=== PATIENT | male | born 1935 ===

== ENCOUNTER 2016-06-01 13:22 | Inpatient (IN) | payer MEDICARE ==
--- NOTE | 2016-06-01 14:28 | ED PDOC ---
HPI: General Adult Time Seen by Provider: 06/01/16 14:13 Chief Complaint (Nursing): Abdominal Pain Chief Complaint (Provider): abdominal swelling History Per: Patient History/Exam Limitations: no limitations Additional Complaint(s): 80yo male comes to the ED complaining of abdominal bloating and leg swelling for 6-7 days. Also reports shortness of breath when laying down. States he urinates more frequently. No diarrhea, constipation. States he's had paracentesis years ago. No abdominal pain however he feels uncomfortable. No chest pain. No cough. No leg pain. PMD: Carlos Corado GI: Dr. Fair Past Medical History Reviewed: Historical Data, Nursing Documentation, Vital Signs Vital Signs: Last Vital Signs Temp 98.1 F 06/01/16 13:28 Pulse 79 06/01/16 13:28 Resp 16 06/01/16 13:28 BP 138/89 06/01/16 13:28 Pulse Ox 98 06/01/16 14:48 - Medical History PMH: CAD, Cardia Arrhythmia, Depression, Diabetes, HTN, Pneumonia Denies: Hepatitis, HIV, Chronic Kidney Disease, Seizures, Sexually Transmitted Disease Other PMH: cirrhosis - Surgical History Surgical History: Coronary Stent (2011) - Family History Family History: States: Unknown Family Hx - Living Arrangements Living Arrangements: With Family - Social History Current smoker - smoking cessation education provided: No Alcohol: None Drugs: Denies - Immunization History Hx Influenza Vaccination: No Hx Pneumococcal Vaccination: No - Home Medications Home Medications: Ambulatory Orders Medication Instructions Recorded Cholecalciferol (Vitamin D3) 1,000 units PO DAILY 01/23/16 [Children's Vitamin D3] Ferrous Sulfate [Feosol] 325 mg PO TID 01/23/16 Furosemide [Lasix] 40 mg PO DAILY 01/23/16 Hydroxyzine HCl [Hydroxyzine HCl] 10 mg PO HS PRN 01/23/16 Insulin Glargine, Recombina 10 units SQ DAILY 01/23/16 [Lantus] Isosorbide Mononitrate [Imdur] 30 mg PO DAILY 01/23/16 Melatonin [Melatin] 3 mg PO HS PRN 01/23/16 Methyl Salicylate/Menthol [Eql 1 applic TOP BID PRN 01/23/16 Cool Heat Cream] Multivit with Calcium,Iron,Min 1 tab PO DAILY 01/23/16 [Multivitamins B-Yztctct-Orbv] Omeprazole [Omeprazole] 20 mg PO DAILY 01/23/16 Propranolol [Inderal] 10 mg PO TID 01/23/16 SITagliptin [Januvia] 100 mg PO DAILY 01/23/16 Spironolactone [Aldactone] 25 mg PO BID 01/23/16 Ondansetron [Zofran Odt] 4 mg PO Q8 PRN #12 odt 02/17/16 - Allergies Allergies/Adverse Reactions: Allergies Allergy/AdvReac Type Severity Reaction Status Date / Time lisinopril Allergy RASH Verified 02/17/16 11:51 Penicillins Allergy RASH Verified 02/17/16 11:51 Review of Systems ROS Statement: Except As Marked, All Systems Reviewed And Found Negative Respiratory: Positive for: Shortness of Breath Gastrointestinal: Positive for: Other (abdominal distention). Negative for: Abdominal Pain, Diarrhea, Constipation Genitourinary Male: Positive for: Frequency Physical Exam - Reviewed Nursing Documentation Reviewed: Yes Vital Signs Reviewed: Yes - Physical Exam Appears: Positive for: Non-toxic, No Acute Distress Head Exam: Positive for: ATRAUMATIC, NORMAL INSPECTION, NORMOCEPHALIC Skin: Positive for: Normal Color, Warm, Dry Eye Exam: Positive for: EOMI, PERRL ENT: Positive for: Normal ENT Inspection. Negative for: Nasal Congestion Neck: Positive for: Normal, Painless ROM, Supple Cardiovascular/Chest: Positive for: Regular Rate, Rhythm, Chest Non Tender Respiratory: Positive for: Other (mild coarse breath sounds on right lower). Negative for: Decreased Breath Sounds, Accessory Muscle Use, Wheezing Gastrointestinal/Abdominal: Positive for: Soft, Distended. Negative for: Tenderness, Guarding, Rebound Back: Positive for: Normal Inspection. Negative for: L CVA Tenderness, R CVA Tenderness Extremity: Positive for: Normal ROM, Pedal Edema, Other (trace pitting edema bilaterally lower extremities). Negative for: Tenderness Neurologic/Psych: Positive for: Alert, Oriented - Laboratory Results Result Diagrams: 06/01/16 15:43 - ECG ECG: Positive for: Interpreted By Me, Viewed By Me ECG Rhythm: Positive for: Left Bundle Branch Block (same as old) O2 Sat by Pulse Oximetry: 98 Pulse Ox Interpretation: Normal - Progress ED Course And Treament: 1413: CT abd/pel, EKG, Labs ordered. 1633: Stable. AAOx3. Dr. Diop to take over care. Fu on labs and imaging. Disposition - Clinical Impression Clinical Impression: Ascites, Abdominal discomfort - Patient ED Disposition Is Patient to be Admitted: Transfer of Care - Disposition Disposition: Transfer of Care Disposition Time: 16:34 Condition: FAIR Patient Signed Over To: Kody Diop Additional Comments - Additional Comments Additional Comments: Documented by Willard Gtz acting as a scribe for Sapphire Verdin MD. All medical record entries made by the Scribe were at my direction and personally dictated by me. I have reviewed the chart and agree that the record accurately reflects my personal performance of the history, physical exam, medical decision making, and the department course for this patient. I have also personally directed, reviewed, and agree with the discharge instructions and disposition.
[2016-06-01] MEDS ORDERED: Iohexol 240 (50 ml) PO ONE (14:33)
[2016-06-01] MEDS ORDERED: Iohexol 240 (50 ml) ONE (14:43)
[2016-06-01 15:50] LABS: BASO % 0.2 % (0.0-2.0); EOS % 0.1 % (0.0-4.0); HEMATOCRIT 40.5 % (35.0-51.0); LYMPH # 0.6 K/uL (1.0-4.3); LYMPH % 7.2 % (20.0-40.0); MEAN CELL VOLUME 100.9 fl (80.0-94.0); MEAN CORPUSCULAR HEMOGLOBIN 33.1 pg (27.0-31.0); MEAN CORPUSCULAR HGB CONC 32.8 g/dL (33.0-37.0); MEAN PLATELET VOLUME 9.6 fl (7.2-11.7); MONO # 0.5 K/uL (0.0-0.8); MONO % 6.6 % (0.0-10.0); NEUT # 6.9 K/uL (1.8-7.0); NEUT % 85.9 % (50.0-75.0); PLATELET COUNT 128 K/uL (130-400); WHITE BLOOD COUNT 8.1 K/uL (4.8-10.8)
[2016-06-01 15:57] LABS: ALB/GLOB RATIO 0.7 (1.0-2.1); ALKALINE PHOSPHATASE 443 U/L (38-126); ALT/SGPT 91 U/L (21-72); AST/SGOT 77 U/L (17-59); BILIRUBIN,TOTAL 1.4 mg/dl (0.2-1.3); BLOOD UREA NITROGEN 41 mg/dl (9-20); CALCIUM 9.6 mg/dL (8.4-10.2); CARBON DIOXIDE 28 mmol/L (22-30); CHLORIDE 98 mmol/L (98-107); GFR AFRICAN-AMERICAN > 60; GLUCOSE,RANDOM 366 mg/dL (75-110); LIPASE 81 U/L (23-300); SODIUM 141 mmol/l (132-148); TOTAL PROTEIN 8.1 G/DL (6.3-8.2)
[2016-06-01 16:11] LABS: NEUTROPHIL 87 % (42-75); PARTIAL THROMBOPLASTIN TIME 24.8 SECONDS (23.3-32.5); TOTAL CELLS COUNTED 100
[2016-06-01 16:15] LABS: LARGE PLATELETS PRESENT
[2016-06-01 16:48] LABS: POTASSIUM 5.2 MMOL/L (3.6-5.0)
[2016-06-01] MEDS ORDERED: Sodium Chloride 0.9% 0 ML IV ONE (17:57)
[2016-06-01] MEDS ORDERED: Iohexol 300 100 ML IJ ONE (17:57)
--- NOTE | 2016-06-01 18:50 | ED PDOC ---
- Laboratory Results Result Diagrams: 06/01/16 15:43 06/01/16 15:43 - ECG O2 Sat by Pulse Oximetry: 98 Disposition - Clinical Impression Clinical Impression: Ascites, Abdominal discomfort - POA Present On Arrival: None - Disposition Disposition: Transfer of Care Disposition Time: 18:50 Condition: FAIR Patient Signed Over To: Frances Chaidez
--- NOTE | 2016-06-01 19:11 | ED PDOC ---
- Laboratory Results Result Diagrams: 06/01/16 15:43 06/01/16 15:43 - ECG O2 Sat by Pulse Oximetry: 99 - CT Scan/US CT A/P Other Rad Studies (CT/US): Read By Radiologist, Radiology Report Reviewed Other Rad Interpretation: see MDM Medical Decision Making Medical Decision Makin:00 Patient endorsed over to me by Kody Diop MD, pending CT, reevaluation and final disposition. 19:57 CT A/P report reviewed: FINDINGS: LOWER THORAX: Heart appears enlarged, and there is coronary artery calcification. No infiltrate seen in the lung bases. ABDOMEN: LIVER: Liver is again noted to be cirrhotic in appearance. Multiple abdominal collateral vessels are seen. This constellation of findings is compatible with portal hypertension due to chronic liver disease. No liver lesions visualized on this unenhanced exam. GALLBLADDER AND BILE DUCTS: Fluid is seen adjacent to the gallbladder. This is most likely related to the generalized abdominal free fluid rather than representing pericholecystic fluid secondary to acute cholecystitis. No evidence of free air.. No radioopaque gallstones are seen. PANCREAS: No CT evidence of acute pancreatitis. SPLEEN: No acute abnormality of the spleen identified. ADRENALS: No acute abnormality of the adrenal glands identified. KIDNEYS AND URETERS: Bilateral renal scarring. Low density lesion in right kidney, most likely a cyst. No evidence of hydroureteronephrosis. STOMACH AND BOWEL: Colonic diverticulosis, with no evidence of acute diverticulitis. Otherwise, no significant abnormality of the bowel is identified. No evidence of bowel obstruction. No acute abnormality of the stomach or duodenum identified. No evidence of pneumatosis intestinalis. APPENDIX: Appendix is seen, and is within normal limits in appearance. PELVIS: BLADDER: Mild thickening of the bladder wall. REPRODUCTIVE: No acute abnormality of the reproductive organs is seen. ABDOMEN and PELVIS: INTRAPERITONEAL SPACE: Large amount of abdominal and pelvic free fluid/ascites, mildly increased in amount compared to the prior CT. Infiltration of the omental fat, also seen on the prior CT. BONES/JOINTS: No acute fractures or other acute bony abnormality noted. SOFT TISSUES: No evidence of abdominal wall hernia containing bowel. VASCULATURE: Atherosclerotic calcification. No evidence of abdominal aortic aneurysm. LYMPH NODES: No evidence of diffuse lymphadenopathy. OTHER FINDINGS: Evidence of prior granulomatous infection. IMPRESSION: - Large amount of abdominal and pelvic free fluid/ascites, mildly increased in amount compared to a prior CT of 01/24/2016. - Otherwise stable findings. - Findings compatible with portal hypertension due to chronic liver disease/cirrhosis. - Mild bladder wall thickening. This is a nonspecific finding, but can be seen with cystitis. Recommend clinical correlation. - Omental fat infiltration. This finding can be seen with portal hypertension/chronic liver disease, but can also be a sign of malignancy/peritoneal metastases. Recommend clinical correlation. - See above for remaining findings. 20:36 Patient will be admitted to [facility] as a full inpatient under the service of Dr. Sadler (covering for PMD dr Nancie Davidson) for further treatment of ascites. Pending callback. Plan has been discussed with patient who is in agreement. Condition fair. 20:[address] Sadler who has accepted patient. pt aware of CT findings. Scribe Attestation: Documented by Lianet Love, acting as a scribe for Frances Chaidez MD. Provider Scribe Attestation: All medical record entries made by the Scribe were at my direction and personally dictated by me. I have reviewed the chart and agree that the record accurately reflects my personal performance of the history, physical exam, medical decision making, and the department course for this patient. I have also personally directed, reviewed, and agree with the discharge instructions and disposition. Disposition Counseled Patient/Family Regarding: Studies Performed, Diagnosis - Clinical Impression Clinical Impression: Ascites, Abdominal discomfort - POA Present On Arrival: None - Disposition Disposition: Admitted as In-Patient Disposition Time: 20:00 Condition: FAIR
--- NOTE | 2016-06-01 19:58 | CT ---
EXAM: CT Abdomen and Pelvis Without Intravenous Contrast. CLINICAL HISTORY: 80 years old, male; Signs and symptoms; Bloating; Patient HX: Ascites; Additional info: Ascites. Abd and feet swelling both feet TECHNIQUE: Axial computed tomography images of the abdomen and pelvis without intravenous contrast. This CT exam was performed using one or more of the following dose reduction techniques: automated exposure control, adjustment of the mA and/or kV according to patient size, and/or use of iterative reconstruction technique. Coronal and sagittal reformatted images were created and reviewed. EXAM DATE/TIME: 06/01/2016 6:09 PM COMPARISON: Prior CT abdomen and pelvis of 01/24/2016 FINDINGS: LOWER THORAX: Heart appears enlarged, and there is coronary artery calcification. No infiltrate seen in the lung bases. ABDOMEN: LIVER: Liver is again noted to be cirrhotic in appearance. Multiple abdominal collateral vessels are seen. This constellation of findings is compatible with portal hypertension due to chronic liver disease. No liver lesions visualized on this unenhanced exam. GALLBLADDER AND BILE DUCTS: Fluid is seen adjacent to the gallbladder. This is most likely related to the generalized abdominal free fluid rather than representing pericholecystic fluid secondary to acute cholecystitis. No evidence of free air.. No radioopaque gallstones are seen. PANCREAS: No CT evidence of acute pancreatitis. SPLEEN: No acute abnormality of the spleen identified. ADRENALS: No acute abnormality of the adrenal glands identified. KIDNEYS AND URETERS: Bilateral renal scarring. Low density lesion in right kidney, most likely a cyst. No evidence of hydroureteronephrosis. STOMACH AND BOWEL: Colonic diverticulosis, with no evidence of acute diverticulitis. Otherwise, no significant abnormality of the bowel is identified. No evidence of bowel obstruction. No acute abnormality of the stomach or duodenum identified. No evidence of pneumatosis intestinalis. APPENDIX: Appendix is seen, and is within normal limits in appearance. PELVIS: BLADDER: Mild thickening of the bladder wall. REPRODUCTIVE: No acute abnormality of the reproductive organs is seen. ABDOMEN and PELVIS: INTRAPERITONEAL SPACE: Large amount of abdominal and pelvic free fluid/ascites, mildly increased in amount compared to the prior CT. Infiltration of the omental fat, also seen on the prior CT. BONES/JOINTS: No acute fractures or other acute bony abnormality noted. SOFT TISSUES: No evidence of abdominal wall hernia containing bowel. VASCULATURE: Atherosclerotic calcification. No evidence of abdominal aortic aneurysm. LYMPH NODES: No evidence of diffuse lymphadenopathy. OTHER FINDINGS: Evidence of prior granulomatous infection. IMPRESSION: - Large amount of abdominal and pelvic free fluid/ascites, mildly increased in amount compared to a prior CT of 01/24/2016. - Otherwise stable findings. - Findings compatible with portal hypertension due to chronic liver disease/cirrhosis. - Mild bladder wall thickening. This is a nonspecific finding, but can be seen with cystitis. Recommend clinical correlation. - Omental fat infiltration. This finding can be seen with portal hypertension/chronic liver disease, but can also be a sign of malignancy/peritoneal metastases. Recommend clinical correlation. - See above for remaining findings.
[2016-06-02] MEDS: Insulin Regular 100 units/ml SC SCH ×4 (07:06→23:41)
[2016-06-02] MEDS ORDERED: MULTIVIT WITH CALCIUM IRON MIN PO SCH (09:00)
[2016-06-02] MEDS: Pantoprazole 40 mg EC Tab PO SCH (09:08)
[2016-06-02] MEDS: Multivitamin With Minerals Tab PO SCH (09:08)
--- NOTE | 2016-06-02 12:53 | CP.PCM.HP ---
<Louisa Muñoz - Last Filed: 06/02/16 16:22> History of Present Illness - History of Present Illness History of Present Illness: Pt is a 80y/o male with medical history of HTN, type II diabetes and CAD and most likely cirrhosis who presented to the ED complaining of abdominal bloating and leg swelling for 6-7 days. Also reports shortness of breath when laying down. States he urinates more frequently. No diarrhea, constipation. States he' s had paracentesis years ago. No abdominal pain however he feels uncomfortable. No chest pain. No cough. No leg pain. Pt seen and examined at this morning at bedside, breathing is a little better but not resolved and still feel discomfort. denies chest pain, nausea, vomiting, headache or visual changes PMD: Carlos Corado GI: Dr. Fair Present on Admission - Present on Admission Any Indicators Present on Admission: Yes History of Uncontrolled Diabetes: Yes Review of Systems - Review of Systems All systems: reviewed and no additional remarkable complaints except Review of Systems: per HPI Past Patient History - Infectious Disease Hx of Infectious Diseases: None - Past Medical History & Family History Past Medical History?: Yes - Past Social History Smoking Status: Never Smoked - CARDIAC Hx Cardiac Disorders: Yes Hx Hypertension: Yes - PULMONARY Hx Respiratory Disorders: Yes Hx Pneumonia: Yes - NEUROLOGICAL Hx Neurological Disorder: No Hx Seizures: No - HEENT Hx HEENT Problems: Yes Other/Comment: Difficulty hearing- wears b/l hearing aids not in place during this admission - RENAL Hx Chronic Kidney Disease: No - ENDOCRINE/METABOLIC Hx Endocrine Disorders: Yes Hx Diabetes Mellitus Type 2: Yes - HEMATOLOGICAL/ONCOLOGICAL Hx Blood Disorders: No Hx Human Immunodeficiency Virus (HIV): No - INTEGUMENTARY Hx Dermatological Problems: No - MUSCULOSKELETAL/RHEUMATOLOGICAL Hx Musculoskeletal Disorders: Yes Hx Arthritis: Yes Hx Falls: Yes - GASTROINTESTINAL Hx Gastrointestinal Disorders: Yes Other/Comment: Liver cirrhosis - GENITOURINARY/GYNECOLOGICAL Hx Genitourinary Disorders: No Hx Sexually Transmitted Disorders: No - PSYCHIATRIC Hx Psychophysiologic Disorder: Yes Hx Depression: Yes Hx Substance Use: No - SURGICAL HISTORY Hx Surgeries: Yes Hx Coronary Stent: Yes (2011) - ANESTHESIA Hx Anesthesia: Yes Hx Anesthesia Reactions: No Hx Malignant Hyperthermia: No Has any member of the family had a problem w/ anesthesia?: No Meds Allergies/Adverse Reactions: Allergies Allergy/AdvReac Type Severity Reaction Status Date / Time lisinopril Allergy RASH Verified 02/17/16 11:51 Penicillins Allergy RASH Verified 02/17/16 11:51 Physical Exam - Constitutional Appears: Non-toxic, No Acute Distress - Head Exam Head Exam: NORMOCEPHALIC - Eye Exam Eye Exam: Normal appearance - ENT Exam ENT Exam: Mucous Membranes Moist - Respiratory Exam Respiratory Exam: Clear to Auscultation Bilateral, NORMAL BREATHING PATTERN. absent: Rhonchi, Wheezes - Cardiovascular Exam Cardiovascular Exam: REGULAR RHYTHM, +S1, +S2 - GI/Abdominal Exam GI & Abdominal Exam: Distended, Normal Bowel Sounds, Soft Additional comments: abdomen is very distended with lot of fluid - Extremities Exam Extremities exam: Negative for: calf tenderness, pedal edema - Neurological Exam Neurological exam: Alert, Oriented x3 Results - Vital Signs Recent Vital Signs: Last Vital Signs Temp 97.8 F 06/02/16 08:16 Pulse 74 06/02/16 08:16 Resp 20 06/02/16 08:16 BP 116/76 06/02/16 09:08 Pulse Ox 98 06/02/16 08:16 - Labs Result Diagrams: 06/01/16 15:43 06/01/16 15:43 Labs: Laboratory Results - last 24 hr 06/02/16 06/02/16 06/02/16 05:45 07:15 11:04 POC Glucose (mg/dL) 140 H 186 H Ammonia 22 D Assessment & Plan - Assessment and Plan (Free Text) Assessment: 80 y/o make with history of HTN, Type II insulin dependent diabetic admitted for sob due to ascites and portal hypertension Plan: Ascites and portal hypertension pt on furosemide, Spironolactone and Metolazone Hepatitis panel ordered CT of abdomen reviewed GI consulted- awaiting recommendation Insulin dependent Type II diabetes SSI home meds resumed Accu check HTN home meds diet- Gi diet DVT prophylaxis- Lovenox <Lars Sadler - Last Filed: 08/16/16 11:02> Results - Vital Signs Recent Vital Signs: Last Vital Signs Temp 98.5 F 06/04/16 08:15 Pulse 85 06/04/16 11:13 Resp 20 06/04/16 08:15 BP 110/70 06/04/16 13:35 Pulse Ox 98 06/04/16 11:13 - Labs Result Diagrams: 06/03/16 15:15 06/03/16 15:15 Assessment & Plan - Assessment and Plan (Free Text) Plan: I was present during evaluation and discussed with Dr Toni asher plans of care and mgt. Lars Sadler M.D.
[2016-06-02] MEDS ORDERED: Dextrose 50% SYRINGE Inj (50 ml) IV PRN (16:29)
[2016-06-02] MEDS ORDERED: Glucagon Recombinant 1 mg Inj IM PRN (16:29)
--- NOTE | 2016-06-03 06:08 | CARD ---
APPROVED REPORT EKG Measurement Heart [id number] ID [id number] <Conclusion> Sinus rhythm with marked sinus arrhythmia Left axis deviation Left bundle branch block Abnormal ECG
[2016-06-03] MEDS: Insulin Regular 100 units/ml SC SCH ×4 (07:30→22:00)
[2016-06-03] MEDS ORDERED: Pantoprazole 40 mg EC Tab PO SCH (09:00)
[2016-06-03] MEDS: Pantoprazole 40 mg EC Tab PO SCH (10:32)
[2016-06-03] MEDS: Multivitamin With Minerals Tab PO SCH (10:33)
[2016-06-03] MEDS: metOLazone 2.5 MG TAB PO SCH (10:34)
[2016-06-03] MEDS ORDERED: Lidocaine 1% Inj (20ml) ONE (11:53)
--- NOTE | 2016-06-03 12:49 | CP.PCM.CON ---
History of Present Illness - History of Present Illness History of Present Illness: GI Consult: Dr. Ruby Pt is an 80M with PMHx significant for DM, HTN & CAD who presented to [facility] for complaints of abdominal bloating and swelling in his legs. Pt states his symptoms started about a week ago and he started to feel more and more uncomfortable with subsequent shortness of breath and urinary frequency. Pt states SOB is worse when he's laying down flat. Pt does admit to having fluid drained from his abdomen about a year ago. He states his abdomen feels uncomfortable but denies abdominal pain. Denies N/V, F/C. Denies chest pain or cough. PMHx: as stated above PSHx: coronary stent SocialHx denies smoking, EtOH, drugs Review of Systems - Review of Systems All systems: reviewed and no additional remarkable complaints except (as per HPI ) Past Patient History - Infectious Disease Hx of Infectious Diseases: None - Past Medical History & Family History Past Medical History?: Yes - Past Social History Smoking Status: Never Smoked - CARDIAC Hx Cardiac Disorders: Yes Hx Hypertension: Yes - PULMONARY Hx Respiratory Disorders: Yes Hx Pneumonia: Yes - NEUROLOGICAL Hx Neurological Disorder: No Hx Seizures: No - HEENT Hx HEENT Problems: Yes Other/Comment: Difficulty hearing - RENAL Hx Chronic Kidney Disease: No - ENDOCRINE/METABOLIC Hx Endocrine Disorders: Yes Hx Diabetes Mellitus Type 2: Yes - HEMATOLOGICAL/ONCOLOGICAL Hx Blood Disorders: No Hx Human Immunodeficiency Virus (HIV): No - INTEGUMENTARY Hx Dermatological Problems: No - MUSCULOSKELETAL/RHEUMATOLOGICAL Hx Musculoskeletal Disorders: Yes Hx Arthritis: Yes Hx Falls: Yes - GASTROINTESTINAL Hx Gastrointestinal Disorders: Yes Other/Comment: Liver cirrhosis - GENITOURINARY/GYNECOLOGICAL Hx Genitourinary Disorders: No Hx Sexually Transmitted Disorders: No - PSYCHIATRIC Hx Psychophysiologic Disorder: Yes Hx Depression: Yes Hx Substance Use: No - SURGICAL HISTORY Hx Surgeries: Yes Hx Coronary Stent: Yes (2011) - ANESTHESIA Hx Anesthesia: Yes Hx Anesthesia Reactions: No Hx Malignant Hyperthermia: No Has any member of the family had a problem w/ anesthesia?: No Meds Allergies/Adverse Reactions: Allergies Allergy/AdvReac Type Severity Reaction Status Date / Time lisinopril Allergy RASH Verified 02/17/16 11:51 Penicillins Allergy RASH Verified 02/17/16 11:51 - Medications Medications: Current Medications Dextrose (Dextrose 50% Inj) 0 ml IV STAT PRN; Protocol PRN Reason: Hyglycemia Protocol Dextrose (Glutose 15) 0 gm PO ONCE PRN; Protocol PRN Reason: Hypoglycemia Protocol Furosemide (Lasix) 40 mg PO DAILY [facility] Last Admin: 06/03/16 10:34 Dose: 40 mg Glucagon (Glucagen Diagnostic Kit) 0 mg IM STAT PRN; Protocol PRN Reason: Hypoglycemia Protocol Insulin Detemir (Levemir) 10 units SC DAILY [facility] Insulin Human Regular (Humulin R) 0 units SC ACCU-CHECK MYA PRN Reason: Protocol Last Admin: 06/03/16 07:30 Dose: Not Given Isosorbide Mononitrate (Imdur) 30 mg PO DAILY [facility] Last Admin: 06/03/16 10:34 Dose: 30 mg Metolazone (Zaroxolyn) 2.5 mg PO DAILY [facility] Last Admin: 06/03/16 10:34 Dose: 2.5 mg Multivitamins/Minerals (Therapeutic-M Tab) 1 tab PO DAILY [facility] Last Admin: 06/03/16 10:33 Dose: 1 tab Ondansetron HCl (Zofran Tab) 4 mg PO Q8 PRN PRN Reason: Nausea/Vomiting Pantoprazole Sodium (Protonix Ec Tab) 40 mg PO DAILY [facility] Last Admin: 06/03/16 10:32 Dose: 40 mg Propranolol HCl (Inderal) 10 mg PO TID [facility] Last Admin: 06/03/16 10:32 Dose: 10 mg Sitagliptin Phosphate (Januvia) 100 mg PO DAILY [facility] Last Admin: 06/03/16 10:33 Dose: 100 mg Spironolactone (Aldactone) 50 mg PO DAILY [facility] Last Admin: 06/03/16 10:34 Dose: 50 mg Physical Exam - Constitutional Appears: Well, No Acute Distress - Head Exam Head Exam: ATRAUMATIC, NORMOCEPHALIC - ENT Exam ENT Exam: Mucous Membranes Moist - Respiratory Exam Respiratory Exam: NORMAL BREATHING PATTERN - Cardiovascular Exam Cardiovascular Exam: RRR - GI/Abdominal Exam GI & Abdominal Exam: Distended, Soft. absent: Guarding, Tenderness - Extremities Exam Extremities exam: Positive for: pedal edema. Negative for: tenderness - Neurological Exam Neurological exam: Alert, Oriented x3 - Skin Skin Exam: Dry, Warm Results - Vital Signs Recent Vital Signs: Last Vital Signs Temp 97.4 F L 06/03/16 12:08 Pulse 74 06/03/16 12:08 Resp 18 06/03/16 12:08 BP 144/77 06/03/16 12:08 Pulse Ox 96 06/03/16 12:08 - Labs Result Diagrams: 06/01/16 15:43 06/01/16 15:43 Labs: Laboratory Results - last 24 hr 06/02/16 06/02/16 06/02/16 12:10 16:31 21:35 POC Glucose (mg/dL) 109 196 H Hepatitis A IgM Ab Negative Hep Bs Antigen Negative Hep B Core IgM Ab Negative Hepatitis C Antibody Negative 06/03/16 06/03/16 06:39 11:01 POC Glucose (mg/dL) 121 H 258 H Hepatitis A IgM Ab Hep Bs Antigen Hep B Core IgM Ab Hepatitis C Antibody - Imaging and Cardiology CT scan - abdomen Status: Image reviewed by me, Report reviewed by me Assessment & Plan - Assessment and Plan (Free Text) Assessment: 80M with ascites Plan: - unclear what the etiology of ascites is at this time, might be related to CHF vs cirrhosis - recommend diuretic treatment first - will continue to monitor - d/w Dr. Flori Child, PGY-2
[2016-06-03 12:51] LABS: BODY FLUID TYPE PERITONEAL/ASCITES
[2016-06-03] MEDS ORDERED: Albumin Human 25% (12.5 gm/50 ml) IV ONE ×2 (12:59→13:00)
--- NOTE | 2016-06-03 13:02 | PCM.SURG1 ---
Surgeon's Initial Post Op Note - Surgeon's Notes Surgeon: Ed Mathematics Instructor: None Type of Anesthesia: Local Pre-Operative Diagnosis: Ascites. Operative Findings: Ascites. Post-Operative Diagnosis: Ascites. Operation Performed: Paracentesis Specimen/Specimens Removed: Approx 9.6L of cloudy plae yellow fluid aspirated. Estimated Blood Loss: EBL {In ML}: 1 Date of Surgery/Procedure: 06/03/16 Time of Surgery/Procedure: 13:00
--- NOTE | 2016-06-03 13:10 | CP.PCM.PN ---
<ToniLouisa - Last Filed: 06/03/16 13:10> Subjective - Date & Time of Evaluation Date of Evaluation: 06/03/16 Time of Evaluation: 09:10 - Subjective Subjective: pt seen and examined at bedside this morning, does not have any complaints. would like to go home. states he feels just a little discomfort. no chest pain, visual change, nausea or vomiting Objective - Vital Signs/Intake and Output Vital Signs (last 24 hours): Temp Pulse Resp BP Pulse Ox 97.4 F L 74 18 144/77 96 06/03/16 12:08 06/03/16 12:08 06/03/16 12:08 06/03/16 12:08 06/03/16 12:08 - Medications Medications: Current Medications Dextrose (Dextrose 50% Inj) 0 ml IV STAT PRN; Protocol PRN Reason: Hyglycemia Protocol Dextrose (Glutose 15) 0 gm PO ONCE PRN; Protocol PRN Reason: Hypoglycemia Protocol Furosemide (Lasix) 40 mg PO DAILY [facility] Last Admin: 06/03/16 10:34 Dose: 40 mg Glucagon (Glucagen Diagnostic Kit) 0 mg IM STAT PRN; Protocol PRN Reason: Hypoglycemia Protocol Insulin Detemir (Levemir) 10 units SC DAILY [facility] Insulin Human Regular (Humulin R) 0 units SC ACCU-CHECK [facility] PRN Reason: Protocol Last Admin: 06/03/16 07:30 Dose: Not Given Isosorbide Mononitrate (Imdur) 30 mg PO DAILY [facility] Last Admin: 06/03/16 10:34 Dose: 30 mg Metolazone (Zaroxolyn) 2.5 mg PO DAILY [facility] Last Admin: 06/03/16 10:34 Dose: 2.5 mg Multivitamins/Minerals (Therapeutic-M Tab) 1 tab PO DAILY [facility] Last Admin: 06/03/16 10:33 Dose: 1 tab Ondansetron HCl (Zofran Tab) 4 mg PO Q8 PRN PRN Reason: Nausea/Vomiting Pantoprazole Sodium (Protonix Ec Tab) 40 mg PO DAILY [facility] Last Admin: 06/03/16 10:32 Dose: 40 mg Propranolol HCl (Inderal) 10 mg PO TID [facility] Last Admin: 06/03/16 10:32 Dose: 10 mg Sitagliptin Phosphate (Januvia) 100 mg PO DAILY [facility] Last Admin: 06/03/16 10:33 Dose: 100 mg Spironolactone (Aldactone) 50 mg PO DAILY [facility] Last Admin: 06/03/16 10:34 Dose: 50 mg - Labs Labs: PT 12.8 SECONDS (9.6-11.2) H 06/01/16 15:43 INR 1.23 (0.92-1.08) H 06/01/16 15:43 APTT 24.8 SECONDS (23.3-32.5) 06/01/16 15:43 - Constitutional Appears: Non-toxic, No Acute Distress - Head Exam Head Exam: NORMOCEPHALIC - ENT Exam ENT Exam: Mucous Membranes Moist - Respiratory Exam Respiratory Exam: Clear to Ausculation Bilateral, NORMAL BREATHING PATTERN. absent: Wheezes - Cardiovascular Exam Cardiovascular Exam: REGULAR RHYTHM, +S1, +S2 - GI/Abdominal Exam GI & Abdominal Exam: Distended, Soft, Normal Bowel Sounds - Extremities Exam Extremities Exam: absent: Calf Tenderness, Pedal Edema - Neurological Exam Neurological Exam: Alert, Awake, Oriented x3 Assessment and Plan - Assessment and Plan (Free Text) Assessment: 80 y/o make with history of HTN, Type II insulin dependent diabetic admitted for sob due to ascites and portal hypertension Plan: Ascites and portal hypertension pt on furosemide, Spironolactone and Metolazone For paracentesis today to help alleviate discomfort Hepatitis panel ordered GI consulted- awaiting recommendation Insulin dependent Type II diabetes SSI home meds resumed Accu check HTN home meds diet- Gi diet DVT prophylaxis- Lovenox <Lars Sadler - Last Filed: 08/16/16 11:04> Objective - Vital Signs/Intake and Output Vital Signs (last 24 hours): Temp Pulse Resp BP Pulse Ox 98.5 F 85 20 110/70 98 06/04/16 08:15 06/04/16 11:13 06/04/16 08:15 06/04/16 13:35 06/04/16 11:13 - Labs Labs: 06/03/16 15:15 06/03/16 15:15 PT 12.8 SECONDS (9.6-11.2) H 06/01/16 15:43 INR 1.23 (0.92-1.08) H 06/01/16 15:43 APTT 24.8 SECONDS (23.3-32.5) 06/01/16 15:43 Assessment and Plan - Assessment and Plan (Free Text) Plan: I was present during evaluation and discussed with Dr Toni asher plans of care and mgt. Lars Sadler M.D.
[2016-06-03 13:23] LABS: LDH,BODY FLUID 257 IU (NONE ESTABLISHED)
[2016-06-03] MEDS: Insulin Detemir 100 Units/ml Inj SC SCH (13:42)
--- NOTE | 2016-06-03 14:24 | PQF GENQUE ---
Dr. Sadler, Please specify the ,status, of diabetes: i.e. With hyperglycemia (poorly controlled, out of control, etc.) Other (please specify) Unable to determine Unknown random serum glucose: 366; POC:354->140->186->109->186->109->196->121->258; insulin This form is a permanent part of the medical record Clarification of your documentation is requested to better reflect the severity of illness and intensity of treatment of your patient. Indicators present [] Specify: [] [] Specify: [] [] Specify: [] [] Specify: [] Location in the medical record that reflects the above clinical findings: [] Treatment Provided: [] PHYSICIAN'S RESPONSE Based on your medical judgment of the clinical indicators outlined above please clarify the following: [] Practitioner response [] If unable to determine, please check the box, sign and date. Present On Admission (POA) Indicator: [] Present at the time of admission [] Not present at the time of admission [] Clinically Undetermined In responding to this query, please exercise your independent professional judgment. The fact that a question is asked does not imply that any particular answer is desired or expected. Thank you for your clarification on this documentation. If you have any questions please call. * Thank you, Kay Harrington RN BSN ext. #[phone] MTDD
[2016-06-03 15:08] LABS: BF GROSS APPEARANCE CLOUDY (CLEAR)
--- NOTE | 2016-06-03 15:27 | PQF GENQUE ---
Dr. Sadler, Etiology of Ascites if known after the work up is completed? -Resident working with the attending: note: Ascites and portal hypertension pt on furosemide, Spironolactone and Metolazone For paracentesis today to help alleviate discomfort Hepatitis panel ordered GI consulted- awaiting recommendation -Surgical consult: - unclear what the etiology of ascites is at this time, might be related to CHF vs cirrhosis - recommend diuretic treatment first - will continue to monitor - d/w GI -CT Abdomen/Pelvis:Imp: - Large amount of abdominal and pelvic free fluid/ ascites, mildly increased in amount compared to a prior CT of 01/24/2016. - Otherwise stable findings. - Findings compatible with portal hypertension due to chronic liver disease/ cirrhosis. - Mild bladder wall thickening. This is a nonspecific finding, but can be seen with cystitis. Recommend clinical correlation. - Omental fat infiltration. This finding can be seen with portal hypertension/chronic liver disease, but can also be a sign of malignancy/peritoneal metastases. Recommend clinical correlation - This form is a permanent part of the medical record Clarification of your documentation is requested to better reflect the severity of illness and intensity of treatment of your patient. Indicators present [] Specify: [] [] Specify: [] [] Specify: [] [] Specify: [] Location in the medical record that reflects the above clinical findings: [] Treatment Provided: [] PHYSICIAN'S RESPONSE Based on your medical judgment of the clinical indicators outlined above please clarify the following: [] Practitioner response [] If unable to determine, please check the box, sign and date. Present On Admission (POA) Indicator: [] Present at the time of admission [] Not present at the time of admission [] Clinically Undetermined In responding to this query, please exercise your independent professional judgment. The fact that a question is asked does not imply that any particular answer is desired or expected. Thank you for your clarification on this documentation. If you have any questions please call. * Thank you, Kay Harrington RN BSN ext. #[phone] MTDD
[2016-06-03 15:35] LABS: HEMATOCRIT 43.3 % (35.0-51.0); MEAN CELL VOLUME 99.6 fl (80.0-94.0); MEAN CORPUSCULAR HEMOGLOBIN 33.1 pg (27.0-31.0); MEAN CORPUSCULAR HGB CONC 33.3 g/dL (33.0-37.0); RED CELL DISTRIBUTION WIDTH 14.5 % (11.5-14.5); WHITE BLOOD COUNT 5.9 K/uL (4.8-10.8)
[2016-06-03 15:41] LABS: ALB/GLOB RATIO 0.7 (1.0-2.1); ALKALINE PHOSPHATASE 376 U/L (38-126); ALT/SGPT 77 U/L (21-72); AST/SGOT 72 U/L (17-59); BILIRUBIN,TOTAL 1.8 mg/dl (0.2-1.3); BLOOD UREA NITROGEN 38 mg/dl (9-20); CALCIUM 9.6 mg/dL (8.4-10.2); CARBON DIOXIDE 31 mmol/L (22-30); CHLORIDE 97 mmol/L (98-107); GFR AFRICAN-AMERICAN > 60; GLUCOSE,RANDOM 269 mg/dL (75-110); POTASSIUM 4.7 MMOL/L (3.6-5.0); SODIUM 142 mmol/l (132-148); TOTAL PROTEIN 7.5 G/DL (6.3-8.2)
--- NOTE | 2016-06-03 18:29 | CP.PCM.PN ---
Subjective - Date & Time of Evaluation Date of Evaluation: 06/03/16 Time of Evaluation: 18:30 - Subjective Subjective: s/p paracentesis Objective - Vital Signs/Intake and Output Vital Signs (last 24 hours): Temp Pulse Resp BP Pulse Ox 97.9 F 72 20 114/65 97 06/03/16 16:48 06/03/16 16:48 06/03/16 16:48 06/03/16 16:48 06/03/16 16:48 - Medications Medications: Current Medications Dextrose (Dextrose 50% Inj) 0 ml IV STAT PRN; Protocol PRN Reason: Hyglycemia Protocol Dextrose (Glutose 15) 0 gm PO ONCE PRN; Protocol PRN Reason: Hypoglycemia Protocol Furosemide (Lasix) 40 mg PO DAILY [facility] Last Admin: 06/03/16 10:34 Dose: 40 mg Glucagon (Glucagen Diagnostic Kit) 0 mg IM STAT PRN; Protocol PRN Reason: Hypoglycemia Protocol Levofloxacin/Dextrose (Levaquin 250mg) 50 mls @ 50 mls/hr IVPB DAILY@1400 [facility] Insulin Detemir (Levemir) 10 units SC DAILY [facility] Last Admin: 06/03/16 13:42 Dose: 10 units Insulin Human Regular (Humulin R) 0 units SC ACCU-CHECK MYA PRN Reason: Protocol Last Admin: 06/03/16 17:29 Dose: 6 units Isosorbide Mononitrate (Imdur) 30 mg PO DAILY [facility] Last Admin: 06/03/16 10:34 Dose: 30 mg Metolazone (Zaroxolyn) 2.5 mg PO DAILY [facility] Last Admin: 06/03/16 10:34 Dose: 2.5 mg Multivitamins/Minerals (Therapeutic-M Tab) 1 tab PO DAILY [facility] Last Admin: 06/03/16 10:33 Dose: 1 tab Ondansetron HCl (Zofran Tab) 4 mg PO Q8 PRN PRN Reason: Nausea/Vomiting Pantoprazole Sodium (Protonix Ec Tab) 40 mg PO DAILY [facility] Last Admin: 06/03/16 10:32 Dose: 40 mg Propranolol HCl (Inderal) 10 mg PO TID [facility] Last Admin: 06/03/16 17:23 Dose: 10 mg Sitagliptin Phosphate (Januvia) 100 mg PO DAILY [facility] Last Admin: 06/03/16 10:33 Dose: 100 mg Spironolactone (Aldactone) 50 mg PO DAILY [facility] Last Admin: 06/03/16 10:34 Dose: 50 mg - Labs Labs: 06/03/16 15:15 06/03/16 15:15 PT 12.8 SECONDS (9.6-11.2) H 06/01/16 15:43 INR 1.23 (0.92-1.08) H 06/01/16 15:43 APTT 24.8 SECONDS (23.3-32.5) 06/01/16 15:43 - GI/Abdominal Exam GI & Abdominal Exam: Soft, Normal Bowel Sounds Assessment and Plan - Assessment and Plan (Free Text) Assessment: 80 yo male with ascites s/p paracentesis management of oral diuretics dc planning
[2016-06-04] MEDS: Insulin Regular 100 units/ml SC SCH ×2 (06:57→11:37)
[2016-06-04 08:16] VITALS: RESP 20; TEMP 98.5; O2SAT 98
[2016-06-04] MEDS: Multivitamin With Minerals Tab PO SCH (08:57)
[2016-06-04] MEDS: Pantoprazole 40 mg EC Tab PO SCH (08:57)
[2016-06-04] MEDS: Insulin Detemir 100 Units/ml Inj SC SCH (08:58)
[2016-06-04] MEDS: metOLazone 2.5 MG TAB PO SCH (09:00)
[2016-06-04 11:30] VITALS: PULSE 85
[2016-06-04 13:35] VITALS: BP 110/70
--- NOTE | 2016-06-04 13:37 | CP.PCM.DIS ---
<ToniRashada - Last Filed: 06/04/16 13:33> Provider - Provider Date of Admission: 06/01/16 20:53 Attending physician: Lars Sadler MD Time Spent in preparation of Discharge (in minutes): 30 Diagnosis - Discharge Diagnosis (1) Ascites of liver Status: c Hospital Course - Lab Results Lab Results: Micro Results 06/03/16 13:02 Ascitic Fluid Gram Stain - Final 06/03/16 13:02 Ascitic Fluid Body Fluid Culture - Preliminary NO GROWTH AFTER 24 HOURS Most Recent Lab Values WBC 5.9 K/uL (4.8-10.8) 06/03/16 15:15 RBC 4.35 Mil/uL (4.40-5.90) L 06/03/16 15:15 Hgb 14.4 g/dL (12.0-18.0) 06/03/16 15:15 Hct 43.3 % (35.0-51.0) 06/03/16 15:15 MCV 99.6 fl (80.0-94.0) H 06/03/16 15:15 MCH 33.1 pg (27.0-31.0) H 06/03/16 15:15 MCHC 33.3 g/dL (33.0-37.0) 06/03/16 15:15 RDW 14.5 % (11.5-14.5) 06/03/16 15:15 Plt Count 127 K/uL (130-400) L 06/03/16 15:15 MPV 9.6 fl (7.2-11.7) 06/01/16 15:43 Neut % (Auto) 85.9 % (50.0-75.0) H 06/01/16 15:43 Lymph % (Auto) 7.2 % (20.0-40.0) L 06/01/16 15:43 [place] % (Auto) 6.6 % (0.0-10.0) 06/01/16 15:43 Eos % (Auto) 0.1 % (0.0-4.0) 06/01/16 15:43 Baso % (Auto) 0.2 % (0.0-2.0) 06/01/16 15:43 Neut # 6.9 K/uL (1.8-7.0) 06/01/16 15:43 Lymph # 0.6 K/uL (1.0-4.3) L 06/01/16 15:43 [place] # 0.5 K/uL (0.0-0.8) 06/01/16 15:43 Eos # 0.0 K/uL (0.0-0.7) 06/01/16 15:43 Baso # 0.0 K/uL (0.0-0.2) 06/01/16 15:43 Neutrophils % (Manual) 87 % (42-75) H 06/01/16 15:43 Lymphocytes % (Manual) 6 % (20-50) L 06/01/16 15:43 Monocytes % (Manual) 7 % (0-10) 06/01/16 15:43 Platelet Estimate Slightly decreased (NORMAL) L 06/01/16 15:43 Large Platelets Present 06/01/16 15:43 Anisocytosis (manual) Slight 06/01/16 15:43 Macrocytosis (manual) Slight 06/01/16 15:43 PT 12.8 SECONDS (9.6-11.2) H 06/01/16 15:43 INR 1.23 (0.92-1.08) H 06/01/16 15:43 APTT 24.8 SECONDS (23.3-32.5) 06/01/16 15:43 Sodium 142 mmol/l (132-148) 06/03/16 15:15 Potassium 4.7 MMOL/L (3.6-5.0) 06/03/16 15:15 Chloride 97 mmol/L (98-107) L 06/03/16 15:15 Carbon Dioxide 31 mmol/L (22-30) H 06/03/16 15:15 Anion Gap 19 (10-20) 06/03/16 15:15 BUN 38 mg/dl (9-20) H 06/03/16 15:15 Creatinine 1.3 mg/dL (0.8-1.5) 06/03/16 15:15 Est GFR ( Amer) > 60 06/03/16 15:15 Est GFR (Non-Af Amer) 53 06/03/16 15:15 POC Glucose (mg/dL) 273 mg/dL (65-110) H 06/04/16 11:02 Random Glucose 269 mg/dL (75-110) H 06/03/16 15:15 Calcium 9.6 mg/dL (8.4-10.2) 06/03/16 15:15 Total Bilirubin 1.8 mg/dl (0.2-1.3) H 06/03/16 15:15 AST 72 U/L (17-59) H 06/03/16 15:15 ALT 77 U/L (21-72) H 06/03/16 15:15 Alkaline Phosphatase 376 U/L (38-126) H 06/03/16 15:15 Ammonia 22 umo/L (16-60) D 06/02/16 07:15 Lactate Dehydrogenase 509 U/L (313-618) 06/03/16 15:15 Troponin I 0.0940 ng/mL (0.00-0.120) 06/01/16 15:43 NT-Pro-B Natriuret Pep 1870 pg/ml (0-900) H 06/01/16 15:43 Total Protein 7.5 G/DL (6.3-8.2) 06/03/16 15:15 Albumin 3.2 g/dL (3.5-5.0) L 06/03/16 15:15 Globulin 4.3 gm/dL (2.2-3.9) H 06/03/16 15:15 Albumin/Globulin Ratio 0.7 (1.0-2.1) L 06/03/16 15:15 Lipase 81 U/L (23-300) 06/01/16 15:43 Fluid Source Peritoneal/ascites 06/03/16 12:15 Fluid Appearance Cloudy (CLEAR) 06/03/16 12:15 Fluid WBC 46.0 /mm3 (0.0-300.0) 06/03/16 12:15 Fluid RBC 18.0 /mm3 (0.0-0.0) H 06/03/16 12:15 Fluid Tot Cell Count TEST NOT PERFORMED 06/03/16 12:15 Fluid Neutrophils 10.0 % (0-0) H 06/03/16 12:15 Fluid Lymphocytes 35.0 % (0-0) H 06/03/16 12:15 Fld Monocyte/Macrophag 5 % (0-0) H 06/03/16 12:15 Fluid Glucose 170 mg/dL (NONE ESTABLISHED) 06/03/16 12:15 Fluid LDH 257 IU (NONE ESTABLISHED) 06/03/16 12:15 Fluid Comment Pale yellow 06/03/16 12:15 Hepatitis A IgM Ab Negative (NEGATIVE) 06/02/16 12:10 Hep Bs Antigen Negative (NEGATIVE) 06/02/16 12:10 Hep B Core IgM Ab Negative (NEGATIVE) 06/02/16 12:10 Hepatitis C Antibody Negative (NEGATIVE) 06/02/16 12:10 - Hospital Course Hospital Course: Pt was admitted for ascites that was causing discomfort, had a paracentesis which relieved the discomfort and is now being discharged home. remained comfortable throughout stay Discharge Exam - Head Exam Head Exam: ATRAUMATIC, NORMOCEPHALIC - Eye Exam Eye Exam: Normal appearance - Respiratory Exam Respiratory Exam: NORMAL BREATHING PATTERN - Cardiovascular Exam Cardiovascular Exam: REGULAR RHYTHM, +S1, +S2 - GI/Abdominal Exam GI & Abdominal Exam: Normal Bowel Sounds, Soft. absent: Tenderness - Neurological Exam Neurological exam: Alert, CN II-XII Intact, Oriented x3 - Skin Skin Exam: Normal Color Discharge Plan - Discharge Medications Prescriptions: Aspirin [Adult Low Dose Aspirin EC] 81 mg PO DAILY #30 tablet.dr - Follow Up Plan Condition: FAIR Disposition: HOME/ ROUTINE Instructions: Diabetes Mellitus Type 1 in Adults (GEN), Abdominal Paracentesis (DC), Ascites (DC), Portal Hypertension (DC), Edema (DC) Additional Instructions: Follow up next week with Dr. Corado. Call MD or return to ER for shortness of breath, abdominal distention or leg swelling. Limit salt intake. I was present during evalaution and discussed with Dr Muñoz re discharge plans. Lars Sadler M.D. <Lars Sadler - Last Filed: 08/16/16 11:04> Provider - Provider Date of Admission: 06/01/16 20:53 Attending physician: Lars Sadler MD Hospital Course - Lab Results Lab Results: Micro Results 06/03/16 13:02 Ascitic Fluid Gram Stain - Final 06/03/16 13:02 Ascitic Fluid Anaerobic Culture - Final NO ANAEROBES ISOLATED. 06/03/16 13:02 Ascitic Fluid Body Fluid Culture - Final No growth. Most Recent Lab Values WBC 5.9 K/uL (4.8-10.8) 06/03/16 15:15 RBC 4.35 Mil/uL (4.40-5.90) L 06/03/16 15:15 Hgb 14.4 g/dL (12.0-18.0) 06/03/16 15:15 Hct 43.3 % (35.0-51.0) 06/03/16 15:15 MCV 99.6 fl (80.0-94.0) H 06/03/16 15:15 MCH 33.1 pg (27.0-31.0) H 06/03/16 15:15 MCHC 33.3 g/dL (33.0-37.0) 06/03/16 15:15 RDW 14.5 % (11.5-14.5) 06/03/16 15:15 Plt Count 127 K/uL (130-400) L 06/03/16 15:15 MPV 9.6 fl (7.2-11.7) 06/01/16 15:43 Neut % (Auto) 85.9 % (50.0-75.0) H 06/01/16 15:43 Lymph % (Auto) 7.2 % (20.0-40.0) L 06/01/16 15:43 [place] % (Auto) 6.6 % (0.0-10.0) 06/01/16 15:43 Eos % (Auto) 0.1 % (0.0-4.0) 06/01/16 15:43 Baso % (Auto) 0.2 % (0.0-2.0) 06/01/16 15:43 Neut # 6.9 K/uL (1.8-7.0) 06/01/16 15:43 Lymph # 0.6 K/uL (1.0-4.3) L 06/01/16 15:43 [place] # 0.5 K/uL (0.0-0.8) 06/01/16 15:43 Eos # 0.0 K/uL (0.0-0.7) 06/01/16 15:43 Baso # 0.0 K/uL (0.0-0.2) 06/01/16 15:43 Neutrophils % (Manual) 87 % (42-75) H 06/01/16 15:43 Lymphocytes % (Manual) 6 % (20-50) L 06/01/16 15:43 Monocytes % (Manual) 7 % (0-10) 06/01/16 15:43 Platelet Estimate Slightly decreased (NORMAL) L 06/01/16 15:43 Large Platelets Present 06/01/16 15:43 Anisocytosis (manual) Slight 06/01/16 15:43 Macrocytosis (manual) Slight 06/01/16 15:43 PT 12.8 SECONDS (9.6-11.2) H 06/01/16 15:43 INR 1.23 (0.92-1.08) H 06/01/16 15:43 APTT 24.8 SECONDS (23.3-32.5) 06/01/16 15:43 Sodium 142 mmol/l (132-148) 06/03/16 15:15 Potassium 4.7 MMOL/L (3.6-5.0) 06/03/16 15:15 Chloride 97 mmol/L (98-107) L 06/03/16 15:15 Carbon Dioxide 31 mmol/L (22-30) H 06/03/16 15:15 Anion Gap 19 (10-20) 06/03/16 15:15 BUN 38 mg/dl (9-20) H 06/03/16 15:15 Creatinine 1.3 mg/dL (0.8-1.5) 06/03/16 15:15 Est GFR ( Amer) > 60 06/03/16 15:15 Est GFR (Non-Af Amer) 53 06/03/16 15:15 POC Glucose (mg/dL) 273 mg/dL (65-110) H 06/04/16 11:02 Random Glucose 269 mg/dL (75-110) H 06/03/16 15:15 Calcium 9.6 mg/dL (8.4-10.2) 06/03/16 15:15 Total Bilirubin 1.8 mg/dl (0.2-1.3) H 06/03/16 15:15 AST 72 U/L (17-59) H 06/03/16 15:15 ALT 77 U/L (21-72) H 06/03/16 15:15 Alkaline Phosphatase 376 U/L (38-126) H 06/03/16 15:15 Ammonia 22 umo/L (16-60) D 06/02/16 07:15 Lactate Dehydrogenase 509 U/L (313-618) 06/03/16 15:15 Troponin I 0.0940 ng/mL (0.00-0.120) 06/01/16 15:43 NT-Pro-B Natriuret Pep 1870 pg/ml (0-900) H 06/01/16 15:43 Total Protein 7.5 G/DL (6.3-8.2) 06/03/16 15:15 Albumin 3.2 g/dL (3.5-5.0) L 06/03/16 15:15 Globulin 4.3 gm/dL (2.2-3.9) H 06/03/16 15:15 Albumin/Globulin Ratio 0.7 (1.0-2.1) L 06/03/16 15:15 Lipase 81 U/L (23-300) 06/01/16 15:43 Fluid Source Peritoneal/ascites 06/03/16 12:15 Fluid Appearance Cloudy (CLEAR) 06/03/16 12:15 Fluid WBC 46.0 /mm3 (0.0-300.0) 06/03/16 12:15 Fluid RBC 18.0 /mm3 (0.0-0.0) H 06/03/16 12:15 Fluid Tot Cell Count TEST NOT PERFORMED 06/03/16 12:15 Fluid Neutrophils 10.0 % (0-0) H 06/03/16 12:15 Fluid Lymphocytes 35.0 % (0-0) H 06/03/16 12:15 Fld Monocyte/Macrophag 5 % (0-0) H 06/03/16 12:15 Fluid Glucose 170 mg/dL (NONE ESTABLISHED) 06/03/16 12:15 Fluid LDH 257 IU (NONE ESTABLISHED) 06/03/16 12:15 Fluid Comment Pale yellow 06/03/16 12:15 Hepatitis A IgM Ab Negative (NEGATIVE) 06/02/16 12:10 Hep Bs Antigen Negative (NEGATIVE) 06/02/16 12:10 Hep B Core IgM Ab Negative (NEGATIVE) 06/02/16 12:10 Hepatitis C Antibody Negative (NEGATIVE) 06/02/16 12:10
--- NOTE | 2016-06-05 09:55 | US ---
Ultrasound guided paracentesis. Clinical History: Ascites with abdominal pain and distension. Technique: The relative risks and indications for the procedure were explained to the patient and informed written consent obtained. Sonography of the abdomen was performed in a supine position. This revealed a small amount of non-loculated ascites, greatest in the right lower quadrant. A puncture site was selected and the area was prepped and draped in the usual sterile fashion. 1% lidocaine was used to anesthetize the skin and soft tissues. A 5 Iranian paracentesis catheter was trocared into the right lower quadrant under real time ultrasound guidance. A permanent image was stored. Approximately 9600 cc of nathan fluid aspirated. Impression: Ultrasound-guided paracentesis in the right lower quadrant. Approximately 9600 cc of nathan colored fluid was aspirated.
== END 2016-06-04 14:36 | disposition home or self-care (01) | DRG 948 ==
LOC: H.ER 13:22 → H.ERHOLD 20:53 → H.MEDSURG1 22:23
PROVIDERS: ADMIT Family Medicine; ATTEND Family Medicine
PROC: 0W9G3ZZ Drainage of Peritoneal Cavity, Percutaneous Approach (ICD-10-PCS; principal; 2016-06-03)
DX: R18.8 Other ascites (principal); K76.6 Portal hypertension; E11.65 Type 2 diabetes mellitus with hyperglycemia; K74.60 Unspecified cirrhosis of liver; Z79.4 Long term (current) use of insulin; I10 Essential (primary) hypertension; I25.10 Atherosclerotic heart disease of native coronary artery without angina pectoris; Z95.5 Presence of coronary angioplasty implant and graft; Z88.0 Allergy status to penicillin; F32.9 Major depressive disorder, single episode, unspecified

== ENCOUNTER 2016-07-23 12:46 | Inpatient (IN) | payer MEDICARE ==
[2016-07-23] MEDS ORDERED: Sodium Chloride 0.9% 500 ML IV SCH (13:45)
[2016-07-23] MEDS ORDERED: Iohexol 240 (50 ml) PO ONE (14:18)
--- NOTE | 2016-07-23 14:55 | ED PDOC ---
HPI: Abdomen Time Seen by Provider: 07/23/16 13:41 Chief Complaint (Nursing): Abdominal Pain Chief Complaint (Provider): Abdominal Pain History Per: Patient History/Exam Limitations: no limitations Onset/Duration Of Symptoms: Days (x3-4 days) Additional Complaint(s): Pt is an 80 y/o male presents to the emergency department with loss of appetite , and abdominal pain for 3-4 days. Denies diarrhea and fever. Last bowel movement was 3 days ago. Abdominal pain is generalized. Pt w/ a lot of vomiting yesterday but not today. Pt w/ no additional complaints at this time. PMD: Dr. Carlos Corado Past Medical History Reviewed: Historical Data, Nursing Documentation, Vital Signs Vital Signs: Last Vital Signs Temp 98.9 F 07/23/16 13:26 Pulse 119 H 07/23/16 13:26 Resp 16 07/23/16 13:26 BP 116/70 07/23/16 13:26 Pulse Ox 98 07/23/16 15:00 - Medical History PMH: Arthritis, CAD, Cardia Arrhythmia, Depression, Diabetes, HTN, Pneumonia Denies: Hepatitis, HIV, Chronic Kidney Disease, Seizures, Sexually Transmitted Disease Other PMH: Liver cirrhosis, cardiac stent and esophageal varices - Surgical History Surgical History: Coronary Stent (2011) - Family History Family History: States: Unknown Family Hx - Social History Current smoker - smoking cessation education provided: No Alcohol: None Drugs: Denies - Immunization History Hx Influenza Vaccination: No Hx Pneumococcal Vaccination: No - Home Medications Home Medications: Ambulatory Orders Medication Instructions Recorded Cholecalciferol (Vitamin D3) 1,000 units PO DAILY 01/23/16 [Children's Vitamin D3] Ferrous Sulfate [Feosol] 325 mg PO TID 01/23/16 Furosemide [Lasix] 40 mg PO DAILY 01/23/16 Hydroxyzine HCl 10 mg PO HS PRN 01/23/16 Insulin Glargine, Recombina 10 units SQ DAILY 01/23/16 [Lantus] Isosorbide Mononitrate [Imdur] 30 mg PO DAILY 01/23/16 Melatonin [Melatin] 3 mg PO HS PRN 01/23/16 Methyl Salicylate/Menthol [Eql 1 applic TOP BID PRN 01/23/16 Cool Heat Cream] Multivit with Calcium,Iron,Min 1 tab PO DAILY 01/23/16 [Multivitamins M-Rdtvuhg-Dyiz] Omeprazole 20 mg PO DAILY 01/23/16 Ondansetron [Zofran Odt] 4 mg PO Q8 PRN #12 odt 02/17/16 Aspirin [Adult Low Dose Aspirin EC] 81 mg PO DAILY #30 tablet. 06/04/16 Lactulose 10 gm PO BID #30 solution 06/04/16 Levofloxacin [Levaquin] 500 mg PO DAILY #5 tablet 06/04/16 Metoprolol Tartrate [Lopressor] 50 mg PO DAILY #30 tab 06/04/16 Prednisone [Deltasone] 10 mg PO DAILY #14 tablet 06/04/16 Spironolactone [Aldactone] 50 mg PO DAILY #30 tab 06/04/16 metOLazone [Zaroxolyn] 2.5 mg PO DAILY #14 tab 06/04/16 rifAXIMin [Xifaxan] 550 mg PO DAILY #14 tab 06/04/16 - Allergies Allergies/Adverse Reactions: Allergies Allergy/AdvReac Type Severity Reaction Status Date / Time lisinopril Allergy RASH Verified 02/17/16 11:51 Penicillins Allergy RASH Verified 02/17/16 11:51 Review of Systems ROS Statement: Except As Marked, All Systems Reviewed And Found Negative Constitutional: Positive for: Other (Loss of appetite). Negative for: Fever Gastrointestinal: Positive for: Vomiting, Abdominal Pain. Negative for: Diarrhea Physical Exam - Reviewed Nursing Documentation Reviewed: Yes Vital Signs Reviewed: Yes - Physical Exam Appears: Positive for: Non-toxic, No Acute Distress Head Exam: Positive for: ATRAUMATIC, NORMOCEPHALIC Skin: Positive for: Normal Color, Warm, Dry Eye Exam: Positive for: Normal appearance ENT: Positive for: Normal ENT Inspection Neck: Positive for: Normal, Supple Cardiovascular/Chest: Positive for: Regular Rate, Rhythm, Other (Distant heart sounds). Negative for: Murmur Respiratory: Positive for: Normal Breath Sounds (Lungs are clear bilaterally). Negative for: Accessory Muscle Use, Respiratory Distress Gastrointestinal/Abdominal: Positive for: Bowel Sounds (Hyperactive bowel sounds ), Soft. Negative for: Tenderness, Guarding, Rebound Back: Positive for: Normal Inspection Extremity: Positive for: Normal ROM. Negative for: Pedal Edema Lymphatic: Positive for: Deferred Neurologic/Psych: Positive for: Alert, Oriented, Other (Nuero nonfocal) - Laboratory Results Result Diagrams: 07/23/16 14:40 - ECG O2 Sat by Pulse Oximetry: 98 (RA) Pulse Ox Interpretation: Normal Medical Decision Making Medical Decision Making: Time: 13:41 Initial impression: Undifferentiated abdominal pain Initial plan: --Type and Screen Stat --ABD Pelvis PO & IV CONT (CT) --Electrocardiogram Stat --COMP Metabolic Panel --Lipase Stat --Troponin I Stat --EKG-ED (EDNURTX) Stat --CBC w/ differential --Partial Thromboplastin Time (COAG) --Prothrombin Time (COAG) --Omnipaque 250 50 ml PO --Sodium Chloride 500 ml IV 125 mls/hr --IV Insertion --Urinalysis Stat Scribe Attestation: Documented by Yadi Higuera, acting as a scribe for Alexx Rojas MD. Provider Scribe Attestation: All medical record entries made by the Scribe were at my direction and personally dictated by me. I have reviewed the chart and agree that the record accurately reflects my personal performance of the history, physical exam, medical decision making, and the department course for this patient. I have also personally directed, reviewed, and agree with the discharge instructions and disposition. Disposition - Clinical Impression Clinical Impression: Undifferentiated abdominal pain - Patient ED Disposition Is Patient to be Admitted: Transfer of Care - Disposition Disposition Time: 15:17 Condition: FAIR Patient Signed Over To: Angela Kaufman Handoff Comments: To follow up labs and CT scan result - POA Present On Arrival: None Physician Patient Turnover - . Patient Signed Over To: Angela Kaufman Handoff Comments: To follow up labs and CT result
[2016-07-23 15:04] LABS: BASO % 0.4 % (0.0-2.0); EOS # 0.1 K/uL (0.0-0.7); EOS % 1.4 % (0.0-4.0); LYMPH # 1.1 K/uL (1.0-4.3); LYMPH % 16.3 % (20.0-40.0); MEAN CELL VOLUME 98.5 fl (80.0-94.0); MEAN CORPUSCULAR HGB CONC 33.5 g/dL (33.0-37.0); MEAN PLATELET VOLUME 8.4 fl (7.2-11.7); MONO % 14.6 % (0.0-10.0); NEUT # 4.5 K/uL (1.8-7.0); NEUT % 67.3 % (50.0-75.0); NRBC % 0.1 % (0.0-0.0); RED CELL DISTRIBUTION WIDTH 13.6 % (11.5-14.5); WHITE BLOOD COUNT 6.7 K/uL (4.8-10.8)
[2016-07-23] MEDS ORDERED: Iohexol 240 (50 ml) ONE (15:11)
[2016-07-23 15:21] LABS: BILIRUBIN,TOTAL 1.5 mg/dl (0.2-1.3); POTASSIUM 4.9 MMOL/L (3.6-5.0); TOTAL PROTEIN 9.1 G/DL (6.3-8.2)
[2016-07-23 15:27] LABS: ALB/GLOB RATIO 0.8 (1.0-2.1)
[2016-07-23 15:30] LABS: TROPONIN I 0.061 ng/mL (0.00-0.120)
[2016-07-23 15:32] LABS: RBC URINE 1 /hpf (0-3); URINE BILIRUBIN NEGATIVE (NEGATIVE); URINE BLOOD NEGATIVE (NEGATIVE); URINE COLOR YELLOW (YELLOW); URINE GLUCOSE (UA) NEG (Normal); URINE KETONE NEGATIVE (NEGATIVE); URINE LEUKOCYTE ESTERASE SMALL Leu/uL (Negative); URINE PROTEIN NEGATIVE (NEGATIVE); URINE UROBILINOGEN 0.2-1.0 mg/dL (0.2-1.0); WBC URINE 2 /hpf (0-5)
[2016-07-23 15:53] LABS: PARTIAL THROMBOPLASTIN TIME 26.4 SECONDS (23.3-32.5)
--- NOTE | 2016-07-23 16:21 | ED PDOC ---
- Laboratory Results Result Diagrams: 07/26/16 06:50 07/26/16 06:50 - ECG O2 Sat by Pulse Oximetry: 98 (RA) - Progress ED Course And Treament: 3p Rec'd endorsement from Dr Rojas. Pending labs and CT abd/pelv. Labs demonstrate worsening renal failure. CT changed to PO contrast only. Accession No. : [id number] Patient Name / ID : GI ELKINS / [id number] Exam Date : 07/23/2016 17:37:29 ( Approved ) Study Comment : Sex / Age : M / 80Y Creator : Tio Wheatley Dictator : Tio Wheatley Garageman : Middleware Developer : Tio Wheatley Approver2 : Report Date : 07/23/2016 18:02:53 My Comment : PROCEDURE: CT Abdomen and Pelvis with Oral contrast. HISTORY: ABD DISTENSION COMPARISON: Comparison is made to 06/01/2016 TECHNIQUE: Contiguous axial images of the abdomen and pelvis. Oral contrast was administered. No IV contrast given. Coronal and Sagittal reformats generated. Radiation dose: Total exam DLP = 720.1 mGy-cm. This CT exam was performed using one or more of the following dose reduction techniques: Automated exposure control, adjustment of the mA and/or kV according to patient size, and/or use of iterative reconstruction technique. FINDINGS: LOWER THORAX: No evidence of acute pathology. LIVER: Advanced cirrhotic changes are again noted. The liver is heterogeneous without evidence of discrete mass this noncontrast study. GALLBLADDER AND BILE DUCTS: Unremarkable. PANCREAS: Unremarkable. No mass. No ductal dilatation. SPLEEN: Unremarkable. No splenomegaly. ADRENALS: Unremarkable. KIDNEYS AND URETERS: No significant interval change in the kidneys noted since the previous study. No evidence of nephrolithiasis or hydronephrosis. Low-attenuation lesion is again seen exophytic from the lower pole of the right kidney measures 4 centimeter. BLADDER: Diffuse urinary bladder wall thickening is noted. REPRODUCTIVE: Unremarkable. APPENDIX: No evidence of appendicitis. BOWEL: Unremarkable. No obstruction. No gross mural thickening. PERITONEUM: Large amount of ascites is again noted in the abdomen and pelvis. No evidence of free air. LYMPH NODES: Unremarkable. No enlarged lymph nodes. VASCULATURE: Unremarkable. No aortic aneurysm. BONES: No fracture or destructive lesion. OTHER FINDINGS: None. IMPRESSION: No evidence of significant interval change since the previous exam. Advanced cirrhosis with findings consistent with portal hypertension associated with large ascites in the abdomen and pelvis. DW Dr Sadler covering for PMD Dr Corado. JAKE pt findings and plan of care Condition: Improving,but remains with symptoms Disposition - Clinical Impression Clinical Impression: Undifferentiated abdominal pain, Acute renal insufficiency - POA Present On Arrival: None - Disposition Disposition: Admitted as In-Patient Disposition Time: 15:00 Condition: FAIR
--- NOTE | 2016-07-23 18:04 | CT ---
PROCEDURE: CT Abdomen and Pelvis with Oral contrast. HISTORY: ABD DISTENSION COMPARISON: Comparison is made to 06/01/2016 TECHNIQUE: Contiguous axial images of the abdomen and pelvis. Oral contrast was administered. No IV contrast given. Coronal and Sagittal reformats generated. Radiation dose: Total exam DLP = 720.1 mGy-cm. This CT exam was performed using one or more of the following dose reduction techniques: Automated exposure control, adjustment of the mA and/or kV according to patient size, and/or use of iterative reconstruction technique. FINDINGS: LOWER THORAX: No evidence of acute pathology. LIVER: Advanced cirrhotic changes are again noted. The liver is heterogeneous without evidence of discrete mass this noncontrast study. GALLBLADDER AND BILE DUCTS: Unremarkable. PANCREAS: Unremarkable. No mass. No ductal dilatation. SPLEEN: Unremarkable. No splenomegaly. ADRENALS: Unremarkable. KIDNEYS AND URETERS: No significant interval change in the kidneys noted since the previous study. No evidence of nephrolithiasis or hydronephrosis. Low-attenuation lesion is again seen exophytic from the lower pole of the right kidney measures 4 centimeter. BLADDER: Diffuse urinary bladder wall thickening is noted. REPRODUCTIVE: Unremarkable. APPENDIX: No evidence of appendicitis. BOWEL: Unremarkable. No obstruction. No gross mural thickening. PERITONEUM: Large amount of ascites is again noted in the abdomen and pelvis. No evidence of free air. LYMPH NODES: Unremarkable. No enlarged lymph nodes. VASCULATURE: Unremarkable. No aortic aneurysm. BONES: No fracture or destructive lesion. OTHER FINDINGS: None. IMPRESSION: No evidence of significant interval change since the previous exam. Advanced cirrhosis with findings consistent with portal hypertension associated with large ascites in the abdomen and pelvis.
[2016-07-23] MEDS ORDERED: Lactulose 10 gm/15 ml (Rectal Use) PR PRN (21:57)
[2016-07-23] MEDS: Insulin Detemir 100 Units/ml Inj SC SCH (22:32)
[2016-07-23] MEDS: Sodium Chloride 0.9% 1,000 ML IV SCH (22:32)
[2016-07-24] MEDS: Sodium Chloride 0.9% 1,000 ML IV SCH ×3 (05:58→19:28)
[2016-07-24 08:25] LABS: MEAN CELL VOLUME 97.7 fl (80.0-94.0); MEAN CORPUSCULAR HGB CONC 33.8 g/dL (33.0-37.0); RED CELL DISTRIBUTION WIDTH 13.5 % (11.5-14.5); WHITE BLOOD COUNT 4.6 K/uL (4.8-10.8)
[2016-07-24 08:40] LABS: ALB/GLOB RATIO 0.7 (1.0-2.1); BILIRUBIN,TOTAL 1.6 mg/dl (0.2-1.3); CALCIUM 9.2 mg/dL (8.4-10.2); POTASSIUM 3.8 MMOL/L (3.6-5.0)
--- NOTE | 2016-07-24 09:38 | CARD ---
APPROVED REPORT EKG Measurement Heart [id number] <Conclusion> Normal sinus rhythm with sinus arrhythmia Left bundle branch block Abnormal ECG
[2016-07-24] MEDS: Insulin Lispro (humaLOG) 100 Units/ml Inj SC SCH ×3 (09:45→17:19)
[2016-07-24] MEDS: Multivitamin With Minerals Tab PO SCH (09:47)
[2016-07-24] MEDS: Metoprolol Succinate 50 mg XL Tab PO SCH (09:47)
[2016-07-24] MEDS ORDERED: Dextrose 5%/Lactated Ringer's 1,000 ML IV SCH (10:15)
--- NOTE | 2016-07-24 10:29 | CP.PCM.CON ---
History of Present Illness - History of Present Illness History of Present Illness: pt seen and examined, full consult is dictated #[id number] 1. inessa , most likely sec to diureitics r/o atn 2. cirrhosis of liver hold aldactone, gentle iv hydration ivf ns at 50 ml /hrx 24 hrs Past Patient History - Infectious Disease Hx of Infectious Diseases: None - Past Medical History & Family History Past Medical History?: Yes - Past Social History Smoking Status: Never Smoked - CARDIAC Hx Cardiac Disorders: Yes - PULMONARY Hx Pneumonia: Yes - NEUROLOGICAL Hx Seizures: No - HEENT Hx HEENT Problems: Yes - RENAL Hx Chronic Kidney Disease: No - ENDOCRINE/METABOLIC Hx Endocrine Disorders: Yes - HEMATOLOGICAL/ONCOLOGICAL Hx AIDS: No Hx Human Immunodeficiency Virus (HIV): No - INTEGUMENTARY Hx Dermatological Problems: No - MUSCULOSKELETAL/RHEUMATOLOGICAL Hx Falls: No - GASTROINTESTINAL Hx Gastrointestinal Disorders: Yes Hx Esophageal Varices: Yes Other/Comment: Liver cirrhosis - GENITOURINARY/GYNECOLOGICAL Hx Sexually Transmitted Disorders: No - PSYCHIATRIC Hx Substance Use: No - SURGICAL HISTORY Hx Coronary Stent: Yes (2011) - ANESTHESIA Hx Anesthesia: Yes Hx Anesthesia Reactions: No Hx Malignant Hyperthermia: No Meds Allergies/Adverse Reactions: Allergies Allergy/AdvReac Type Severity Reaction Status Date / Time lisinopril Allergy RASH Verified 02/17/16 11:51 Penicillins Allergy RASH Verified 02/17/16 11:51 - Medications Medications: Current Medications Aspirin (Ecotrin) 81 mg PO DAILY [facility] Last Admin: 07/24/16 09:45 Dose: 81 mg Furosemide (Lasix) 40 mg PO DAILY [facility] Last Admin: 07/24/16 09:47 Dose: Not Given Hydroxyzine HCl (Atarax) 25 mg PO Q8H PRN PRN Reason: Itching / Pruritus Sodium Chloride (Sodium Chloride 0.9%) 1,000 mls @ 125 mls/hr IV .Q8H [facility] Stop: 07/24/16 21:20 Last Admin: 07/24/16 05:58 Dose: Not Given Dextrose/Lactated Ringer's (Dextrose 5%/Lactated Ringer's) 1,000 mls @ 100 mls/ hr IV .Q10H [facility] Stop: 07/26/16 10:16 Insulin Detemir (Levemir) 15 units SC [facility] Last Admin: 07/23/16 22:32 Dose: 15 units Insulin Human Lispro (Humalog) 6 units SC TID [facility] Last Admin: 07/24/16 09:45 Dose: Not Given Isosorbide Mononitrate (Imdur) 30 mg PO DAILY [facility] Last Admin: 07/24/16 09:46 Dose: 30 mg Lactulose (Generlac) 10 gm MI BID PRN PRN Reason: high ammonia levels Metoprolol Succinate (Toprol Xl) 50 mg PO DAILY [facility] Last Admin: 07/24/16 09:47 Dose: Not Given Multivitamins/Minerals (Therapeutic-M Tab) 1 tab PO DAILY [facility] Last Admin: 07/24/16 09:47 Dose: 1 tab Oxycodone HCl (Oxycodone Immediate Release Tab) 5 mg PO TID PRN PRN Reason: Pain, severe (8-10) Pantoprazole Sodium (Protonix Ec Tab) 20 mg PO DAILY [facility] Spironolactone (Aldactone) 50 mg PO BID [facility] Last Admin: 07/24/16 09:47 Dose: Not Given Results - Vital Signs Recent Vital Signs: Last Vital Signs Temp 97.5 F L 07/24/16 09:43 Pulse 63 07/24/16 09:47 Resp 21 07/24/16 09:43 BP 98/58 L 07/24/16 09:47 Pulse Ox 99 07/24/16 09:43 - Labs Result Diagrams: 07/24/16 05:30 07/24/16 05:30 Labs: Laboratory Results - last 24 hr 07/24/16 07/24/16 05:30 05:30 WBC 4.6 L RBC 3.79 L Hgb 12.5 Hct 37.0 MCV 97.7 H MCH 33.0 H MCHC 33.8 RDW 13.5 Plt Count 143 Sodium 135 Potassium 3.8 Chloride 101 Carbon Dioxide 24 Anion Gap 13 BUN 59 H Creatinine 1.9 H Est GFR ( Amer) 41 Est GFR (Non-Af Amer) 34 Random Glucose 90 Calcium 9.2 Total Bilirubin 1.6 H AST 55 ALT 32 Alkaline Phosphatase 261 H Total Protein 8.0 Albumin 3.3 L Globulin 4.7 H Albumin/Globulin Ratio 0.7 L
[2016-07-24] MEDS: Pantoprazole 20 mg EC Tab PO SCH (11:39)
[2016-07-24] MEDS ORDERED: Lactulose 10 gm/15 ml Syrup PO PRN (15:25)
[2016-07-24] MEDS: oxyCODONE 5 mg Immediate Release Tab PO PRN (15:32)
[2016-07-24] MEDS: Insulin Detemir 100 Units/ml Inj SC SCH (22:16)
--- NOTE | 2016-07-24 22:34 | CON ---
DATE: 07/24/2016 The patient is located in room 652, bed 1. REQUESTING PHYSICIAN: Dr. Lars Sadler. REASON FOR RENAL CONSULTATION: Acute renal failure for further evaluation. HISTORY OF PRESENT ILLNESS: The patient is an 80-year-old elderly male with a past medical history significant for hypertension for about 10 years and diabetes for 10 years, coronary artery di sease, status post stents x 2, and paracenteses and cirrhosis of the liver, questionable hepatitis an d ex-alcohol abuse, who was admitted with chief complaints of not feeling well for the last 2-3 days and decreased p.o. intake and also poor appetite. The patient was found to have elevated BUN and cre atinine and renal consultation requested for evaluation of acute renal failure. The patient is not i n acute distress, is receiving IV fluids, ringer lactate at 100 mL per hour. The patient is not in a cute distress. Denies any headache, dizziness. Denies any chest pain, palpitation at this time. De nies any shortness of breath. Denies any nausea, vomiting, diarrhea. The patient does complain of s ome abdominal distention. Denies any edema of the legs. Denies any dysuria or frequency. PAST MEDICAL HISTORY: Significant for hypertension for more than 10 years and diabetes for 10 years, coronary artery disease. PAST SURGICAL HISTORY: Status post stents x 2. ALLERGIES: ALLERGIC TO LISINOPRIL AND PENICILLIN. SOCIAL HISTORY: The patient denies any smoking. The patient was ex-alcohol abuse, quit about 20 yea rs ago. No drugs. PERSONAL HISTORY: He is and he has 2 children. Both parents are . FAMILY HISTORY: Not significant. HOME MEDICATIONS: Include as follows: Oxycodone 5 mg p.o. t.i.d. p.r.n., 1 tablet daily, insu praveen 6 units subQ t.i.d., hydroxyzine 25 mg p.o. q. 8 hours p.r.n. and metoprolol 50 mg p.o. sonia ly, lactulose 10 grams p.o. b.i.d. p.r.n., Imdur isosorbide dinitrate 30 mg p.o. daily, Lantus 15 uni ts subQ at bedtime, Aldactone 50 mg p.o. b.i.d., omeprazole 20 mg p.o. daily, Lasix 40 mg p.o. daily, aspirin 81 mg p.o. daily, his current medications in the hospital include Atarax hydroxyzine 25 mg p .o. q. 8 hours, aspirin 81 mg daily, lactulose 10 mg p.o. b.i.d., Humalog 6 units subQ t.i.d. and Imd ur 30 mg p.o. daily, Lasix 40 mg daily and Levemir 15 units subQ at bedtime, oxycodone 5 mg p.o. t.i. d., and Protonix 20 mg p.o. daily, multivitamin 1 tablet daily, metoprolol 50 mg p.o. daily. REVIEW OF SYSTEMS: Significant for weakness and not feeling well and decreased p.o. intake for 2-3 d ays. All other review of systems are reviewed and are negative. PHYSICAL EXAMINATION: VITAL SIGNS: Blood pressure 98/58, pulse 63, respirations 21, temperature 97.5, and saturation 99%, height 5 feet 3 inches and weight is 130 pounds. GENERAL: The patient is an 80-year-old elderly male, moderately built, moderately nourished , not in acute distress. HEENT: Pupils normal, reactive to light and accommodation. Conjunctivae pink. Sclerae anicteric. Tongue is moist. NECK: Trachea midline. LUNGS: Symmetric on both sides. Bilateral breath sounds present. Clear on auscultation. CARDIOVASCULAR: [place] at the fifth intercostal space midclavicular line. S1 and S2 audible. No murm ur or gallop. ABDOMEN: Slightly protuberant and soft, tympanic, dullness in both flanks present. No guarding, no rigidity. No hepatosplenomegaly. CENTRAL NERVOUS SYSTEM: The patient is alert, awake, oriented x 2-3. Sensory and motor system is gr ossly within normal limits. Cranial nerves II-XII grossly intact. EXTREMITIES: No cyanosis, no clubbing, no edema. LABORATORY DATA: Include as follows: As of 07/23/2016, WBC 6.7, hemoglobin 12.7, hematocrit is 38, platelet . PT 13.3, PTT 26.4, INR 1.2. Sodium 135, potassium 4.9, chloride 97, CO2 of 25, BUN 69 and creatinine 2.4, glucose 163, and calcium is 10 and total bilirubin 1.5, AST 67, ALT 42, alkali ne phosphatase is 326, troponin 0.06. Urinalysis: Yellow, clear, pH 6, specific gravity 1.010, prot ein negative, glucose negative, ketones negative, blood negative, , bilirubin negative, urobilin ogen is 0.2-1.0, leukocyte esterase small, RBC 1, WBC 2, epithelial cells less than 1, and hyaline ca st more than 20, urine osmolality 358, urine creatinine is 49.9 and urine sodium is 99 and urine pota ssium is 21 and calculated yeast is 3.5. His other laboratory data as of 07/24/2016, WBC 4.6, hemoglobin 12.5, hematocrit is 37, platelets 143. Sodium 135, potassium 3.8, chloride 101, CO2 of 24 , BUN 59, creatinine 1.9, and glucose is 90 and calcium 9.2. Total bilirubin 1.6, AST 55, ALT 32, al kaline phosphatase 261, total protein 8, albumin is 3.3, globulin 4.7. CT of the abdomen and pelvis as of 07/23/2016, liver had mild cirrhotic changes are again noted, the liver is heterogenous without evidence of discrete mass; this is a noncontrast study. My impression: No evidence of significant interval change since the previous exam, had cirrhosis with findings consistent with portal hypertens ion and diffuse urinary bladder wall thickening is noted. Kidneys, no significant interval changes i n the kidneys noted since the previous study. No evidence of nephrolithiasis or hydronephrosis, low attenuation lesion is again seen, exophytic form, exophytic from the lower pole of the right kidney m easures about 4 cm, large amount of ascites again noted in the abdomen and pelvis, no evidence of fr ee air. Review of other labs: Serology as of 06/02/2016, hepatitis C antibody IgM is negative, hepa titis B surface antigen negative, hepatitis B core antibody IgM is negative and hep C antibody is neg ative. SUMMARY: The patient is an 80-year-old elderly male with a history of hypertension, diabete s, ETOH abuse, and cirrhosis of the liver and portal hypertension, massive ascites and history of par acenteses in the past, who was admitted with not feeling well, weak and tired and found to have incre ased BUN and creatinine with a BUN and creatinine 38/1.3 on 06/03/2016. 1. Acute renal failure, nonoliguric, most likely secondary to diuretics and intravascular volume dep letion. The patient is on Aldactone and Lasix. 2. Cirrhosis of the liver with portal hypertension. 3. Diabetes. 4. Hypertension. PLAN: We will hold Aldactone and Lasix for a few days and continue gentle IV hydration until renal f unction improves. Doubt SBP at this time as serum creatinine improving with IV hydration and continu e gentle hydration. Daily BMP, IV fluids normal saline at 50 mL per hour. We will follow with you. Thank you for allowing me to participate in your patient's care. Haroon Eddy MD cc: [id number] TT: 07/24/2016 22:33:42 Confirmation # [id number] Dictation # [id number] mn
[2016-07-25] MEDS: oxyCODONE 5 mg Immediate Release Tab PO PRN ×2 (08:13→15:41)
[2016-07-25] MEDS: Metoprolol Succinate 50 mg XL Tab PO SCH (08:15)
[2016-07-25] MEDS: Multivitamin With Minerals Tab PO SCH (08:15)
[2016-07-25] MEDS: Pantoprazole 20 mg EC Tab PO SCH (08:15)
--- NOTE | 2016-07-25 09:06 | CP.PCM.HP ---
History of Present Illness - History of Present Illness History of Present Illness: This is an 80 y/o male admitted for dehydration and renal failure. Past Patient History - Infectious Disease Hx of Infectious Diseases: None - Past Medical History & Family History Past Medical History?: Yes - Past Social History Smoking Status: Never Smoked - CARDIAC Hx Cardiac Disorders: Yes - PULMONARY Hx Pneumonia: Yes - NEUROLOGICAL Hx Seizures: No - HEENT Hx HEENT Problems: Yes - RENAL Hx Chronic Kidney Disease: No - ENDOCRINE/METABOLIC Hx Endocrine Disorders: Yes - HEMATOLOGICAL/ONCOLOGICAL Hx AIDS: No Hx Human Immunodeficiency Virus (HIV): No - INTEGUMENTARY Hx Dermatological Problems: No - MUSCULOSKELETAL/RHEUMATOLOGICAL Hx Falls: No - GASTROINTESTINAL Hx Gastrointestinal Disorders: Yes Hx Esophageal Varices: Yes Other/Comment: Liver cirrhosis - GENITOURINARY/GYNECOLOGICAL Hx Sexually Transmitted Disorders: No - PSYCHIATRIC Hx Substance Use: No - SURGICAL HISTORY Hx Coronary Stent: Yes (2011) - ANESTHESIA Hx Anesthesia: Yes Hx Anesthesia Reactions: No Hx Malignant Hyperthermia: No Meds Allergies/Adverse Reactions: Allergies Allergy/AdvReac Type Severity Reaction Status Date / Time lisinopril Allergy RASH Verified 02/17/16 11:51 Penicillins Allergy RASH Verified 02/17/16 11:51 Results - Vital Signs Recent Vital Signs: Last Vital Signs Temp 97.9 F 07/25/16 08:15 Pulse 72 07/25/16 08:15 Resp 18 07/25/16 08:15 BP 112/61 07/25/16 08:15 Pulse Ox 100 07/25/16 08:15 - Labs Result Diagrams: 07/24/16 05:30 07/24/16 05:30
[2016-07-25] MEDS: Insulin Lispro (humaLOG) 100 Units/ml Inj SC SCH ×3 (11:32→17:27)
[2016-07-25] MEDS: Sodium Chloride 0.9% 1,000 ML IV SCH (15:42)
[2016-07-25] MEDS: Insulin Detemir 100 Units/ml Inj SC SCH (21:30)
[2016-07-26 07:35] LABS: BASO % 0.7 % (0.0-2.0); EOS # 0.2 K/uL (0.0-0.7); EOS % 3.2 % (0.0-4.0); HEMATOCRIT 40.7 % (35.0-51.0); LYMPH # 0.9 K/uL (1.0-4.3); LYMPH % 16.7 % (20.0-40.0); MEAN CELL VOLUME 97.9 fl (80.0-94.0); MEAN CORPUSCULAR HEMOGLOBIN 32.8 pg (27.0-31.0); MEAN CORPUSCULAR HGB CONC 33.5 g/dL (33.0-37.0); MEAN PLATELET VOLUME 8.5 fl (7.2-11.7); MONO # 0.9 K/uL (0.0-0.8); MONO % 18.5 % (0.0-10.0); NEUT # 3.1 K/uL (1.8-7.0); NEUT % 60.9 % (50.0-75.0); NRBC % 0.2 % (0.0-0.0); RED CELL DISTRIBUTION WIDTH 13.8 % (11.5-14.5); WHITE BLOOD COUNT 5.1 K/uL (4.8-10.8)
[2016-07-26 07:37] LABS: ALB/GLOB RATIO 0.7 (1.0-2.1); BILIRUBIN,TOTAL 1.7 mg/dl (0.2-1.3); CALCIUM 9.5 mg/dL (8.4-10.2); POTASSIUM 4.5 MMOL/L (3.6-5.0); TOTAL PROTEIN 8.1 G/DL (6.3-8.2)
[2016-07-26] MEDS: Insulin Lispro (humaLOG) 100 Units/ml Inj SC SCH ×3 (08:23→16:27)
[2016-07-26] MEDS: Pantoprazole 20 mg EC Tab PO SCH (08:24)
[2016-07-26] MEDS: Multivitamin With Minerals Tab PO SCH (08:24)
[2016-07-26] MEDS: oxyCODONE 5 mg Immediate Release Tab PO PRN (08:34)
--- NOTE | 2016-07-26 10:09 | CP.PCM.PN ---
Subjective - Date & Time of Evaluation Date of Evaluation: 07/25/16 Time of Evaluation: 09:00 - Subjective Subjective: patient claims that he still feels very weak Noted improvement of BUN and creatinine. Objective - Vital Signs/Intake and Output Vital Signs (last 24 hours): Temp Pulse Resp BP Pulse Ox 98.8 F 67 20 116/63 98 07/26/16 08:35 07/26/16 08:35 07/26/16 08:35 07/26/16 08:35 07/26/16 08:35 - Medications Medications: Current Medications Aspirin (Ecotrin) 81 mg PO DAILY [facility] Last Admin: 07/26/16 08:22 Dose: 81 mg Furosemide (Lasix) 40 mg PO DAILY [facility] Last Admin: 07/26/16 08:23 Dose: 40 mg Hydroxyzine HCl (Atarax) 25 mg PO Q8H PRN PRN Reason: Itching / Pruritus Insulin Detemir (Levemir) 15 units SC HS [facility] Last Admin: 07/25/16 21:30 Dose: Not Given Insulin Human Lispro (Humalog) 6 units SC TID [facility] Last Admin: 07/26/16 08:23 Dose: 6 units Isosorbide Mononitrate (Imdur) 30 mg PO DAILY [facility] Last Admin: 07/26/16 08:23 Dose: 30 mg Lactulose (Enulose) 10 gm PO BID PRN PRN Reason: high ammonia levels Last Admin: 07/24/16 15:39 Dose: 10 gm Metoprolol Succinate (Toprol Xl) 50 mg PO DAILY [facility] Last Admin: 07/25/16 08:15 Dose: 50 mg Multivitamins/Minerals (Therapeutic-M Tab) 1 tab PO DAILY [facility] Last Admin: 07/26/16 08:24 Dose: 1 tab Oxycodone HCl (Oxycodone Immediate Release Tab) 5 mg PO TID PRN PRN Reason: Pain, severe (8-10) Last Admin: 07/26/16 08:34 Dose: 5 mg Pantoprazole Sodium (Protonix Ec Tab) 20 mg PO DAILY [facility] Last Admin: 07/26/16 08:24 Dose: 20 mg - Labs Labs: 07/26/16 06:50 07/26/16 06:50 PT 13.3 SECONDS (9.6-11.2) H 07/23/16 14:40 INR 1.28 (0.92-1.08) H 07/23/16 14:40 APTT 26.4 SECONDS (23.3-32.5) 07/23/16 14:40
--- NOTE | 2016-07-26 10:10 | CP.PCM.PN ---
Subjective - Date & Time of Evaluation Date of Evaluation: 07/26/16 Time of Evaluation: 10:09 - Subjective Subjective: Claims to have no appetite Feels weak Complains of pain on both knees. Objective - Vital Signs/Intake and Output Vital Signs (last 24 hours): Temp Pulse Resp BP Pulse Ox 98.8 F 67 20 116/63 98 07/26/16 08:35 07/26/16 08:35 07/26/16 08:35 07/26/16 08:35 07/26/16 08:35 - Medications Medications: Current Medications Aspirin (Ecotrin) 81 mg PO DAILY [facility] Last Admin: 07/26/16 08:22 Dose: 81 mg Furosemide (Lasix) 40 mg PO DAILY [facility] Last Admin: 07/26/16 08:23 Dose: 40 mg Hydroxyzine HCl (Atarax) 25 mg PO Q8H PRN PRN Reason: Itching / Pruritus Insulin Detemir (Levemir) 15 units SC HS [facility] Last Admin: 07/25/16 21:30 Dose: Not Given Insulin Human Lispro (Humalog) 6 units SC TID [facility] Last Admin: 07/26/16 08:23 Dose: 6 units Isosorbide Mononitrate (Imdur) 30 mg PO DAILY [facility] Last Admin: 07/26/16 08:23 Dose: 30 mg Lactulose (Enulose) 10 gm PO BID PRN PRN Reason: high ammonia levels Last Admin: 07/24/16 15:39 Dose: 10 gm Metoprolol Succinate (Toprol Xl) 50 mg PO DAILY [facility] Last Admin: 07/25/16 08:15 Dose: 50 mg Multivitamins/Minerals (Therapeutic-M Tab) 1 tab PO DAILY [facility] Last Admin: 07/26/16 08:24 Dose: 1 tab Oxycodone HCl (Oxycodone Immediate Release Tab) 5 mg PO TID PRN PRN Reason: Pain, severe (8-10) Last Admin: 07/26/16 08:34 Dose: 5 mg Pantoprazole Sodium (Protonix Ec Tab) 20 mg PO DAILY [facility] Last Admin: 07/26/16 08:24 Dose: 20 mg - Labs Labs: 07/26/16 06:50 07/26/16 06:50 PT 13.3 SECONDS (9.6-11.2) H 07/23/16 14:40 INR 1.28 (0.92-1.08) H 07/23/16 14:40 APTT 26.4 SECONDS (23.3-32.5) 07/23/16 14:40
[2016-07-26] MEDS: Sodium Chloride 0.9% 1,000 ML IV SCH (13:21)
[2016-07-26] MEDS: Metoprolol Succinate 50 mg XL Tab PO SCH (16:26)
--- NOTE | 2016-07-26 18:52 | CP.PCM.PN ---
Subjective - Date & Time of Evaluation Date of Evaluation: 07/26/16 Time of Evaluation: 18:52 - Subjective Subjective: pt seen amd examined, follow up consult is dictated #[id number] c/w ivf ns at 50 ml/hr x 24 hrs then stop, bmp in am Objective - Vital Signs/Intake and Output Vital Signs (last 24 hours): Temp Pulse Resp BP Pulse Ox 97.7 F 76 20 111/62 100 07/26/16 16:26 07/26/16 16:26 07/26/16 16:26 07/26/16 16:26 07/26/16 16:26 - Medications Medications: Current Medications Aspirin (Ecotrin) 81 mg PO DAILY [facility] Last Admin: 07/26/16 08:22 Dose: 81 mg Furosemide (Lasix) 40 mg PO DAILY [facility] Last Admin: 07/26/16 08:23 Dose: 40 mg Hydroxyzine HCl (Atarax) 25 mg PO Q8H PRN PRN Reason: Itching / Pruritus Sodium Chloride (Sodium Chloride 0.9%) 1,000 mls @ 50 mls/hr IV .Q20H [facility] Stop: 07/27/16 12:41 Last Admin: 07/26/16 13:21 Dose: 50 mls/hr Insulin Detemir (Levemir) 15 units SC HS [facility] Last Admin: 07/25/16 21:30 Dose: Not Given Insulin Human Lispro (Humalog) 6 units SC TID [facility] Last Admin: 07/26/16 16:27 Dose: 6 units Isosorbide Mononitrate (Imdur) 30 mg PO DAILY [facility] Last Admin: 07/26/16 08:23 Dose: 30 mg Lactulose (Enulose) 10 gm PO BID PRN PRN Reason: high ammonia levels Last Admin: 07/24/16 15:39 Dose: 10 gm Megestrol Acetate (Megace) 400 mg PO DAILY [facility] Metoprolol Succinate (Toprol Xl) 50 mg PO DAILY [facility] Last Admin: 07/26/16 16:26 Dose: 50 mg Multivitamins/Minerals (Therapeutic-M Tab) 1 tab PO DAILY [facility] Last Admin: 07/26/16 08:24 Dose: 1 tab Oxycodone HCl (Oxycodone Immediate Release Tab) 5 mg PO TID PRN PRN Reason: Pain, severe (8-10) Last Admin: 07/26/16 08:34 Dose: 5 mg Pantoprazole Sodium (Protonix Ec Tab) 20 mg PO DAILY [facility] Last Admin: 07/26/16 08:24 Dose: 20 mg - Labs Labs: 07/26/16 06:50 07/26/16 06:50 PT 13.3 SECONDS (9.6-11.2) H 07/23/16 14:40 INR 1.28 (0.92-1.08) H 07/23/16 14:40 APTT 26.4 SECONDS (23.3-32.5) 07/23/16 14:40
[2016-07-26] MEDS: Insulin Detemir 100 Units/ml Inj SC SCH (22:00)
--- NOTE | 2016-07-27 02:01 | PN ---
DATE: 07/26/2016 LOCATION: The patient is located in room 652, bed 1. REQUESTED BY: Dr. Lars Sadler. REASON FOR FOLLOWUP: Acute renal failure and chronic kidney disease. HISTORY OF PRESENT ILLNESS: The patient is a 80-year-old elderly male with a past medical h istory significant for long-standing hypertension, diabetes, cirrhosis of the liver, ETOH abuse, was admitted with feeling weak and tired and decreased p.o. intake for a few days and also history of cir rhosis of the liver, portal hypertension, chronic kidney disease stage III. The patient was started on IV fluids. The patient is feeling much better, not in acute distress, no chest pain, no palpitati ons, no fever, no cough, no abdominal pain, no nausea, vomiting, diarrhea. PHYSICAL EXAMINATION: VITAL SIGNS: As follows: Blood pressure this evening 111/62, pulse 76, respirations 20, temperature 97.7, saturation 100%. Height 5 feet 3 inches and weight is 130 pounds. GENERAL: The patient is an 80-year-old male, moderately built, moderately nourished, not in acute di stress. HEENT: Pupils normal, reactive to light and accommodation. Conjunctivae pink. Sclerae anicteric. Tongue is moist. NECK: Trachea is midline. LUNGS: Symmetric on both sides. Bilateral breath sounds present. Clear on auscultation. CARDIOVASCULAR: [place] at the fifth intercostal space midclavicular line. S1 and S2 audible. No murm ur or gallop. ABDOMEN: Normal in appearance, slightly distended, soft, tympanic. No guarding, no rigidity. No he patosplenomegaly. CENTRAL NERVOUS SYSTEM: The patient is alert, awake, oriented x 3, nonfocal on examination. Cranial nerves II through XII grossly intact. Sensory and motor system is within normal limits. EXTREMITIES: No cyanosis, no clubbing, no edema. CURRENT MEDICATIONS: Include as follows: Atarax 25 mg p.o. q. 8 hours, Ecotrin 81 mg daily, lactulo se 10 mg p.o. b.i.d. and Humalog 6 units subQ t.i.d. and Imdur 30 mg p.o. daily, Lasix 40 mg daily, L evemir 15 units subQ at bedtime, magnesium 400 mg p.o. daily, oxycodone 5 mg p.o. t.i.d., Protonix 20 mg p.o. daily, IV fluids normal saline at 50 mL per hour, multivitamins 1 tablet daily, Toprol-XL 50 mg p.o. daily. LABORATORY DATA: Include as follows: As of 07/26/2016, WBC 5.1, hemoglobin 13.6, hematocrit is 40.7 , platelets 148. Sodium 136, potassium 4.5, chloride 102, CO2 26, BUN 39, creatinine 1.5, glucose 11 8, calcium 9.5, total bilirubin 1.7, AST 54, ALT 44, alkaline phosphatase is 246, total protein 8.1, albumin is 3.4. SUMMARY: The patient is an 80-year-old elderly male with history of hypertension, diabetes, coronary artery disease, status post stents, arthritis and ETOH abuse, cirrhosis of the liver with portal hyp ertension, status post paracentesis in the past, chronic kidney disease III with a baseline creatinin e about 1.4, was admitted with increased BUN and creatinine and decreased p.o. intake, on IV hydratio n. IMPRESSION AND PLAN: Acute on chronic kidney disease, most likely secondary to diuretics and decreas ed p.o. intake. The patient is off spironolactone at this time. Continue gentle IV hydration and co ntinue Lasix 40 mg daily. Renal function is almost back to his baseline. Continue gentle hydration for today and discontinue IV fluids tomorrow. Repeat BMP in a.m. and, if renal function remains stab le, the patient can be discharged and consider to decrease Aldactone to 25 mg p.o. daily and titrate as needed slowly as long as renal function remains stable. Will follow with you. Thank you for allowing me to participate in your patient's care. Haroon Eddy MD cc: [id number] TT: 07/27/2016 02:01:24 Confirmation # [id number] Dictation # [id number] mn
[2016-07-27] MEDS: oxyCODONE 5 mg Immediate Release Tab PO PRN (06:07)
[2016-07-27 07:58] VITALS: BP 125/72; PULSE 63; RESP 18; TEMP 97.9; O2SAT 97
[2016-07-27 08:16] LABS: ALB/GLOB RATIO 0.7 (1.0-2.1); BILIRUBIN,TOTAL 1.4 mg/dl (0.2-1.3); CALCIUM 9.4 mg/dL (8.4-10.2); POTASSIUM 4.3 MMOL/L (3.6-5.0); TOTAL PROTEIN 8.2 G/DL (6.3-8.2)
--- NOTE | 2016-07-27 09:06 | CP.PCM.PN ---
Subjective - Date & Time of Evaluation Date of Evaluation: 07/27/16 Time of Evaluation: 09:05 - Subjective Subjective: pt seen and examined, follow up consult is dictated #[id number] decrease aldactone to 25 mg po bid and change lasix to 20 mg po bid Objective - Vital Signs/Intake and Output Vital Signs (last 24 hours): Temp Pulse Resp BP Pulse Ox 97.9 F 63 18 125/72 97 07/27/16 07:57 07/27/16 07:57 07/27/16 07:57 07/27/16 07:57 07/27/16 07:57 - Medications Medications: Current Medications Aspirin (Ecotrin) 81 mg PO DAILY [facility] Last Admin: 07/26/16 08:22 Dose: 81 mg Furosemide (Lasix) 40 mg PO DAILY [facility] Last Admin: 07/26/16 08:23 Dose: 40 mg Hydroxyzine HCl (Atarax) 25 mg PO Q8H PRN PRN Reason: Itching / Pruritus Sodium Chloride (Sodium Chloride 0.9%) 1,000 mls @ 50 mls/hr IV .Q20H [facility] Stop: 07/27/16 12:41 Last Admin: 07/26/16 13:21 Dose: 50 mls/hr Insulin Detemir (Levemir) 15 units SC HS [facility] Last Admin: 07/26/16 22:00 Dose: 15 units Insulin Human Lispro (Humalog) 6 units SC TID [facility] Last Admin: 07/26/16 16:27 Dose: 6 units Isosorbide Mononitrate (Imdur) 30 mg PO DAILY [facility] Last Admin: 07/26/16 08:23 Dose: 30 mg Lactulose (Enulose) 10 gm PO BID PRN PRN Reason: high ammonia levels Last Admin: 07/24/16 15:39 Dose: 10 gm Megestrol Acetate (Megace) 400 mg PO DAILY [facility] Metoprolol Succinate (Toprol Xl) 50 mg PO DAILY [facility] Last Admin: 07/26/16 16:26 Dose: 50 mg Multivitamins/Minerals (Therapeutic-M Tab) 1 tab PO DAILY [facility] Last Admin: 07/26/16 08:24 Dose: 1 tab Oxycodone HCl (Oxycodone Immediate Release Tab) 5 mg PO TID PRN PRN Reason: Pain, severe (8-10) Last Admin: 07/27/16 06:07 Dose: 5 mg Pantoprazole Sodium (Protonix Ec Tab) 20 mg PO DAILY [facility] Last Admin: 07/26/16 08:24 Dose: 20 mg - Labs Labs: 07/26/16 06:50 07/27/16 07:00 PT 13.3 SECONDS (9.6-11.2) H 07/23/16 14:40 INR 1.28 (0.92-1.08) H 07/23/16 14:40 APTT 26.4 SECONDS (23.3-32.5) 07/23/16 14:40
[2016-07-27] MEDS: Pantoprazole 20 mg EC Tab PO SCH (09:09)
[2016-07-27] MEDS: Metoprolol Succinate 50 mg XL Tab PO SCH (09:09)
[2016-07-27] MEDS: Multivitamin With Minerals Tab PO SCH ×2 (09:10→09:12)
[2016-07-27] MEDS: Insulin Lispro (humaLOG) 100 Units/ml Inj SC SCH (09:10)
[2016-07-27] MEDS: Sodium Chloride 0.9% 1,000 ML IV SCH (09:12)
--- NOTE | 2016-07-27 11:28 | CP.PCM.DIS ---
Provider - Provider Date of Admission: 07/23/16 18:48 Attending physician: Lars Sadler MD Primary care physician: Carlos Corado MD Time Spent in preparation of Discharge (in minutes): 20 Diagnosis - Discharge Diagnosis (1) Acute renal insufficiency Status: Acute (2) Ascites of liver Status: Acute (3) Atelectasis Status: Acute (4) CAD (coronary artery disease) Status: Acute (5) Diabetes mellitus Status: Acute (6) HTN (hypertension) Status: Acute Hospital Course - Lab Results Lab Results: Micro Results 07/23/16 19:06 Urine Urine Culture - Final No Growth (<1,000 CFU/ML) Most Recent Lab Values WBC 5.1 K/uL (4.8-10.8) 07/26/16 06:50 RBC 4.15 Mil/uL (4.40-5.90) L 07/26/16 06:50 Hgb 13.6 g/dL (12.0-18.0) 07/26/16 06:50 Hct 40.7 % (35.0-51.0) 07/26/16 06:50 MCV 97.9 fl (80.0-94.0) H 07/26/16 06:50 MCH 32.8 pg (27.0-31.0) H 07/26/16 06:50 MCHC 33.5 g/dL (33.0-37.0) 07/26/16 06:50 RDW 13.8 % (11.5-14.5) 07/26/16 06:50 Plt Count 148 K/uL (130-400) 07/26/16 06:50 MPV 8.5 fl (7.2-11.7) 07/26/16 06:50 Neut % (Auto) 60.9 % (50.0-75.0) 07/26/16 06:50 Lymph % (Auto) 16.7 % (20.0-40.0) L 07/26/16 06:50 [place] % (Auto) 18.5 % (0.0-10.0) H 07/26/16 06:50 Eos % (Auto) 3.2 % (0.0-4.0) 07/26/16 06:50 Baso % (Auto) 0.7 % (0.0-2.0) 07/26/16 06:50 Neut # 3.1 K/uL (1.8-7.0) 07/26/16 06:50 Lymph # 0.9 K/uL (1.0-4.3) L 07/26/16 06:50 [place] # 0.9 K/uL (0.0-0.8) H 07/26/16 06:50 Eos # 0.2 K/uL (0.0-0.7) 07/26/16 06:50 Baso # 0.0 K/uL (0.0-0.2) 07/26/16 06:50 PT 13.3 SECONDS (9.6-11.2) H 07/23/16 14:40 INR 1.28 (0.92-1.08) H 07/23/16 14:40 APTT 26.4 SECONDS (23.3-32.5) 07/23/16 14:40 Sodium 136 mmol/l (132-148) 07/27/16 07:00 Potassium 4.3 MMOL/L (3.6-5.0) 07/27/16 07:00 Chloride 101 mmol/L (98-107) 07/27/16 07:00 Carbon Dioxide 24 mmol/L (22-30) 07/27/16 07:00 Anion Gap 16 (10-20) 07/27/16 07:00 BUN 33 mg/dl (9-20) H 07/27/16 07:00 Creatinine 1.5 mg/dL (0.8-1.5) 07/27/16 07:00 Est GFR ( Amer) 54 07/27/16 07:00 Est GFR (Non-Af Amer) 45 07/27/16 07:00 POC Glucose (mg/dL) 148 mg/dL (65-110) H 07/27/16 06:18 Random Glucose 136 mg/dL (75-110) H 07/27/16 07:00 Calcium 9.4 mg/dL (8.4-10.2) 07/27/16 07:00 Total Bilirubin 1.4 mg/dl (0.2-1.3) H 07/27/16 07:00 AST 54 U/L (17-59) 07/27/16 07:00 ALT 39 U/L (21-72) 07/27/16 07:00 Alkaline Phosphatase 271 U/L (38-126) H 07/27/16 07:00 Troponin I 0.0610 ng/mL (0.00-0.120) 07/23/16 14:40 Total Protein 8.2 G/DL (6.3-8.2) 07/27/16 07:00 Albumin 3.4 g/dL (3.5-5.0) L 07/27/16 07:00 Globulin 4.8 gm/dL (2.2-3.9) H 07/27/16 07:00 Albumin/Globulin Ratio 0.7 (1.0-2.1) L 07/27/16 07:00 Lipase 118 U/L (23-300) 07/23/16 14:40 Urine Color Yellow (YELLOW) 07/23/16 14:40 Urine Clarity Clear (Clear) 07/23/16 14:40 Urine pH 6.0 (5.0-8.0) 07/23/16 14:40 Ur Specific [place] 1.010 (1.003-1.030) 07/23/16 14:40 Urine Protein Negative mg/dL (NEGATIVE) 07/23/16 14:40 Urine Glucose (UA) Neg mg/dL (Normal) 07/23/16 14:40 Urine Ketones Negative mg/dL (NEGATIVE) 07/23/16 14:40 Urine Blood Negative (NEGATIVE) 07/23/16 14:40 Urine Nitrate Negative (NEGATIVE) 07/23/16 14:40 Urine Bilirubin Negative (NEGATIVE) 07/23/16 14:40 Urine Urobilinogen 0.2-1.0 mg/dL (0.2-1.0) 07/23/16 14:40 Ur Leukocyte Esterase Small [place]/uL (Negative) 07/23/16 14:40 Urine RBC (Auto) 1 /hpf (0-3) 07/23/16 14:40 Urine Microscopic WBC 2 /hpf (0-5) 07/23/16 14:40 Ur Squamous Epith Cells < 1 /hpf (0-5) 07/23/16 14:40 Hyaline Casts >20 /hpf (0-2) H 07/23/16 14:40 Urine Osmolality 358 mosm/kg (300-1000) 07/23/16 06:01 Ur Random Creatinine 49.9 mg/dL 07/23/16 06:01 Ur Random Sodium 99 meq/L 07/23/16 06:01 Ur Random Potassium 21.0 mmol/L 07/23/16 06:01 Blood Type O POSITIVE 07/23/16 14:40 Blood Type Confirm O POSITIVE 07/23/16 15:03 Antibody Screen Negative 07/23/16 14:40 BBK History Checked No verified bt 07/23/16 14:40 - Hospital Course Hospital Course: 80 y/o male admitted for dehydration and renal failure. c/s Nephro Dr. Mcguire for management. BUN/Cr improved with MIVF. d/c home with dose adjustment of spironolactone and lasix as below. Discharge Exam - Head Exam Head Exam: ATRAUMATIC, NORMOCEPHALIC Discharge Plan - Discharge Medications Prescriptions: Furosemide [Lasix] 20 mg PO BID #30 tab Megestrol Acetate [Megace] 400 mg PO DAILY #7 Spironolactone [Aldactone] 25 mg PO BID #30 tab - Follow Up Plan Condition: FAIR Disposition: HOME/ ROUTINE Instructions: Acute Kidney Injury (DC) Referrals: Carlos Corado MD [Primary Care Provider] -
[2016-07-27] MEDS ORDERED: Megestrol Acetate 40 mg/ml Cup PO SCH (12:45)
--- NOTE | 2016-07-27 22:25 | PN ---
DATE: 07/27/2016 The patient is located in room 652, bed 1. REQUESTED BY: Dr. Lars Sadler. REASON FOR FOLLOWUP: Acute renal failure on chronic kidney disease, cirrhosis of the liver. HISTORY OF PRESENT ILLNESS: The patient is an 80-year-old elderly male with a history of lo ngstanding hypertension, diabetes, coronary artery disease status post stents x 2, ETOH abuse, cirrho sis of the liver with portal hypertension, chronic kidney disease stage III with a baseline creatinin e about 1.3-1.4, was admitted with feeling weak, tired and decreased p.o. intake for a few days prior to the admission and elevated BUN and creatinine and started on gentle IV hydration. The patient is feeling much better, not in acute distress and denies any chest pain, palpitations. Denies any feve r or cough. No abdominal pain, no nausea, vomiting, diarrhea. PHYSICAL EXAMINATION: VITAL SIGNS: This morning is as follows: Blood pressure 125/72, pulse 63, respirations 18, temperat ure 97.9, saturation 97%, height 5 feet 3 inches and weight is 130 pounds. GENERAL: The patient is an 80 years old very pleasant elderly male, moderately built, moder ately nourished, not in acute distress. HEENT: Pupils normal, reactive to light and accommodation. Conjunctivae pink. Sclerae anicteric. Tongue is moist. NECK: Trachea is midline. LUNGS: Symmetric on both sides. Bilateral breath sounds present. Clear on auscultation. CARDIOVASCULAR: [place] in the 5th intercostal space midclavicular line. S1 and S2 audible. No murmur or gallop. ABDOMEN: Normal in appearance, soft, tympanic. No guarding, no rigidity, is slightly distended, dul lness on both flanks. CENTRAL NERVOUS SYSTEM: The patient is alert, awake, oriented x 3, nonfocal on examination. Cranial nerves II-XII grossly intact. Sensory and motor system is within normal limits. EXTREMITIES: No cyanosis, no clubbing, no edema. CURRENT MEDICATIONS: Include as follows: Atarax 25 mg p.o. q. 8 hours, Ecotrin 81 mg daily, lactulo se 10 grams p.o. b.i.d., Humalog 6 units subQ t.i.d., Imdur 30 mg p.o. daily, Lasix 40 mg p.o. daily, Levemir 15 units subQ at bedtime, megestrol 400 mg p.o. daily, oxycodone 5 mg p.o. t.i.d. p.r.n. for pain, Protonix 20 mg p.o. daily, normal saline at 50 mL per hour, multivitamin 1 tablet daily, Topro l-XL 50 mg p.o. daily. LABORATORY DATA: Include as follows: As of 07/27/2016, sodium 136, potassium 4.3, chloride 101, CO2 24, BUN 33, creatinine 1.5, glucose is 136, calcium 9.4, total bilirubin 1.4, AST 54, ALT 39, alkali ne phosphatase is 271 and total protein 8.2, albumin is 3.4 and globulin 4.8. SUMMARY: The patient is an 80-year-old elderly male with a history of hypertension, diabetes, histor y of ETOH abuse, coronary artery disease status post stents, chronic kidney disease stage III with a baseline creatinine about 1.3-1.4, was admitted with decreased p.o. intake for a few days and feeling weak and tired and elevated BUN and creatinine on IV hydration. 1. Acute on chronic kidney disease secondary to intravascular volume depletion secondary to decrease d p.o. intake and diuretics, Aldactone and Lasix. 2. Hypertension. Blood pressure is stable. 3. Diabetes. Sugars are under control. Continue Humalog and Levemir as per Dr. Sadler. 4. Cirrhosis of the liver with portal hypertension. Renal function is almost back to his baseline a nd the patient is stable from the renal standpoint for discharge and will change Lasix to 20 mg p.o. b.i.d. and restart Aldactone at 25 mg p.o. b.i.d. Follow up with GI as an outpatient. Thank you for allowing me to participate in your patient's care and discussed with the nurse practiti roxi in rounds this morning, . Haroon Eddy MD cc: [id number] TT: 07/27/2016 22:25:22 Confirmation # [id number] Dictation # [id number] cn
== END 2016-07-27 11:50 | disposition home health service (06) | DRG 683 ==
LOC: H.ER 12:46 → H.ERHOLD 18:48 → H.MEDSURG1 21:00
PROVIDERS: ADMIT Family Medicine; ATTEND Family Medicine
DX: N17.9 Acute kidney failure, unspecified (principal); K76.6 Portal hypertension; R18.8 Other ascites; E11.22 Type 2 diabetes mellitus with diabetic chronic kidney disease; K74.60 Unspecified cirrhosis of liver; I12.9 Hypertensive chronic kidney disease with stage 1 through stage 4 chronic kidney disease, or unspecified chronic kidney disease; N18.3 Chronic kidney disease, stage 3 (moderate); I25.10 Atherosclerotic heart disease of native coronary artery without angina pectoris; Z95.5 Presence of coronary angioplasty implant and graft; E86.0 Dehydration; F32.9 Major depressive disorder, single episode, unspecified; Z88.0 Allergy status to penicillin; M19.90 Unspecified osteoarthritis, unspecified site; T50.2X5A Adverse effect of carbonic-anhydrase inhibitors, benzothiadiazides and other diuretics, initial encounter

== ENCOUNTER 2016-08-14 16:30 | Inpatient (IN) | payer MEDICARE ==
[2016-08-14 16:47] VITALS: BMI 24.7
[2016-08-14] MEDS ORDERED: Albuterol-Ipratrop 3 mg / 0.5 (3 ml) UD IH STA (17:14)
[2016-08-14] MEDS ORDERED: Sodium Chloride 0.9% 250 ML IV STA (17:14)
--- NOTE | 2016-08-14 17:16 | ED PDOC ---
HPI: General Adult Time Seen by Provider: 08/14/16 16:51 Chief Complaint (Nursing): Shortness Of Breath Chief Complaint (Provider): Shortness Of Breath History Per: Patient History/Exam Limitations: no limitations Onset/Duration Of Symptoms: Days (x3 days) Current Symptoms Are (Timing): Still Present Additional Complaint(s): 81 y/o male with a past medical history of chronic liver disease, ascites, diabetes, hypertension and hypercholesterolemia who presents to the emergency department with a complaint of shortness of breath, nausea, and dizziness for 3 days. As per history from , patient was admitted to the hospital for ascites portal hypertension on 06/04/2016 x4 days. Reports that patient visited his PMD on 08/05/2016 who increased his doses on a couple of medications. Denies chest pain. Of note, patient has 2 coronary stents with a cauterization completed in February. Past Medical History Reviewed: Historical Data, Nursing Documentation, Vital Signs Vital Signs: Last Vital Signs Temp 98.6 F 08/14/16 16:47 Pulse 69 08/14/16 16:47 Resp 16 08/14/16 16:47 BP 124/68 08/14/16 16:47 Pulse Ox 99 08/14/16 18:38 - Medical History PMH: Arthritis, CAD, Cardia Arrhythmia, Depression, Diabetes, HTN, Pneumonia Denies: Hepatitis, HIV, Chronic Kidney Disease, Seizures, Sexually Transmitted Disease Other PMH: Ascites and liver disease - Surgical History Surgical History: Coronary Stent (2011) - Family History Family History: States: Unknown Family Hx - Social History Current smoker - smoking cessation education provided: No Alcohol: None Drugs: Denies - Immunization History Hx Influenza Vaccination: No Hx Pneumococcal Vaccination: No - Home Medications Home Medications: Ambulatory Orders Medication Instructions Recorded Insulin Glargine, Recombina 15 units SC HS 01/23/16 [Lantus] Omeprazole 20 mg PO DAILY 01/23/16 Aspirin [Adult Low Dose Aspirin EC] 81 mg PO DAILY #30 tablet. 06/04/16 Hydroxyzine HCl 25 mg PO Q8H PRN 07/23/16 Insulin Lispro [humALOG] 6 unit SC TID 07/23/16 Isosorbide Dinitrate 30 mg PO DAILY 07/23/16 Lactulose 10 gm PO BID PRN 07/23/16 Metoprolol Succinate [Toprol XL] 50 mg PO DAILY 07/23/16 Mv,Min10/Folic Acid/D3/Ala/Lut 1 tab PO DAILY 07/23/16 [Strovite One Caplet] oxyCODONE [oxyCODONE Immediate 5 mg PO TID PRN 07/23/16 Release Tab] Furosemide [Lasix] 20 mg PO BID #30 tab 07/27/16 Megestrol Acetate [Megace] 400 mg PO DAILY #7 07/27/16 Spironolactone [Aldactone] 25 mg PO BID #30 tab 07/27/16 - Allergies Allergies/Adverse Reactions: Allergies Allergy/AdvReac Type Severity Reaction Status Date / Time lisinopril Allergy RASH Verified 02/17/16 11:51 Penicillins Allergy RASH Verified 02/17/16 11:51 Review of Systems ROS Statement: Except As Marked, All Systems Reviewed And Found Negative Cardiovascular: Negative for: Chest Pain Respiratory: Positive for: Shortness of Breath Gastrointestinal: Positive for: Nausea Neurological: Positive for: Dizziness Physical Exam - Reviewed Nursing Documentation Reviewed: Yes Vital Signs Reviewed: Yes - Physical Exam Appears: Positive for: Non-toxic, No Acute Distress Head Exam: Positive for: ATRAUMATIC, NORMAL INSPECTION, NORMOCEPHALIC Skin: Positive for: Normal Color, Warm, Dry Eye Exam: Positive for: Normal appearance, EOMI, PERRL ENT: Positive for: Normal ENT Inspection Neck: Positive for: Normal, Painless ROM, Supple Cardiovascular/Chest: Positive for: Regular Rate, Rhythm. Negative for: Murmur Respiratory: Positive for: Decreased Breath Sounds. Negative for: Accessory Muscle Use, Respiratory Distress Gastrointestinal/Abdominal: Positive for: Normal Exam, Soft, Other (Large ascites w/ fluid wave). Negative for: Tenderness Back: Positive for: Normal Inspection. Negative for: L CVA Tenderness, R CVA Tenderness Extremity: Positive for: Normal ROM. Negative for: Pedal Edema Neurologic/Psych: Positive for: Alert, Oriented - Laboratory Results Result Diagrams: 08/14/16 17:57 08/14/16 17:57 Interpretation Of Abn Labs: 45/2 bun/cr - ECG ECG: Positive for: Interpreted By Me, Viewed By Me ECG Rhythm: Positive for: Left Bundle Branch Block O2 Sat by Pulse Oximetry: 99 (RA) Pulse Ox Interpretation: Normal - Radiology X-Ray: Interpreted by Me, Viewed By Me X-Ray Interpretation: No Acute Disease - Progress ED Course And Treament: 184: Stable. AAOx3. Pain controlled. Spoke with Dr. Sadler. Will admit tele obs. Pt. will need ascites drainage and eval for renal insuff. Dr. Sadler to put in further orders when pt. reaches floor. Medical Decision Making Medical Decision Making: Time: 16:51 Initial impression: Shortness of breath Initial plan: Scribe Attestation: Documented by Yadi Higuera, acting as a scribe for Mohinder Verdin MD. Provider Scribe Attestation: All medical record entries made by the Scribe were at my direction and personally dictated by me. I have reviewed the chart and agree that the record accurately reflects my personal performance of the history, physical exam, medical decision making, and the department course for this patient. I have also personally directed, reviewed, and agree with the discharge instructions and disposition. Disposition - Clinical Impression Clinical Impression: Renal insufficiency, Ascites - Patient ED Disposition Is Patient to be Admitted: Yes Counseled Patient/Family Regarding: Studies Performed, Diagnosis - Disposition Disposition Time: 18:42 Condition: FAIR - Pt Status Changed To: Hospital Disposition Of: Observation - POA Present On Arrival: None
[2016-08-14] MEDS ORDERED: Albuterol-Ipratrop 3 mg / 0.5 (3 ml) UD ONE (17:27)
[2016-08-14 18:02] LABS: BASO % 0.7 % (0.0-2.0); EOS # 0.1 K/uL (0.0-0.7); EOS % 1.8 % (0.0-4.0); HEMATOCRIT 39.2 % (35.0-51.0); LYMPH # 1.3 K/uL (1.0-4.3); LYMPH % 19.7 % (20.0-40.0); MEAN CELL VOLUME 97.6 fl (80.0-94.0); MEAN CORPUSCULAR HGB CONC 32.7 g/dL (33.0-37.0); MEAN PLATELET VOLUME 8.7 fl (7.2-11.7); MONO # 1.2 K/uL (0.0-0.8); NEUT # 3.8 K/uL (1.8-7.0); NEUT % 58.8 % (50.0-75.0); RED CELL DISTRIBUTION WIDTH 13.6 % (11.5-14.5); WHITE BLOOD COUNT 6.5 K/uL (4.8-10.8)
[2016-08-14 18:11] LABS: ALB/GLOB RATIO 0.7 (1.0-2.1); BILIRUBIN,TOTAL 1.3 mg/dl (0.2-1.3); CALCIUM 9.3 mg/dL (8.4-10.2); POTASSIUM 4.8 MMOL/L (3.6-5.0); TOTAL PROTEIN 8.5 G/DL (6.3-8.2)
[2016-08-14 18:23] LABS: TROPONIN I 0.036 ng/mL (0.00-0.120)
[2016-08-14] MEDS: Insulin Detemir 100 Units/ml Inj SC SCH (22:30)
[2016-08-15 08:48] LABS: HEMATOCRIT 39.2 % (35.0-51.0); MEAN CELL VOLUME 96.9 fl (80.0-94.0); MEAN CORPUSCULAR HEMOGLOBIN 32.7 pg (27.0-31.0); MEAN CORPUSCULAR HGB CONC 33.8 g/dL (33.0-37.0); RED CELL DISTRIBUTION WIDTH 13.7 % (11.5-14.5); WHITE BLOOD COUNT 5.8 K/uL (4.8-10.8)
[2016-08-15 08:58] LABS: ALB/GLOB RATIO 0.7 (1.0-2.1); BILIRUBIN,TOTAL 1.5 mg/dl (0.2-1.3); CALCIUM 9.5 mg/dL (8.4-10.2); POTASSIUM 4.2 MMOL/L (3.6-5.0); TOTAL PROTEIN 8.4 G/DL (6.3-8.2)
[2016-08-15 09:28] LABS: THYROID STIMULATING HORMONE 1.42 mIU/ML (0.46-4.68)
[2016-08-15] MEDS: Insulin Lispro (humaLOG) 100 Units/ml Inj SC SCH ×3 (09:32→17:48)
[2016-08-15] MEDS: Lactulose 10 gm/15 ml Syrup PO SCH ×2 (09:32→17:48)
[2016-08-15] MEDS: Pantoprazole 40 mg EC Tab PO SCH (09:34)
[2016-08-15] MEDS: Megestrol Acetate 40 mg/ml Cup PO SCH (09:34)
[2016-08-15] MEDS: Multivitamin With Minerals Tab PO SCH (09:35)
[2016-08-15] MEDS: Metoprolol Succinate 50 mg XL Tab PO SCH (09:35)
--- NOTE | 2016-08-15 11:19 | RAD ---
HISTORY: dyspnea COMPARISON: No prior. FINDINGS: LUNGS: No active pulmonary disease. PLEURA: No significant pleural effusion identified, no pneumothorax apparent. CARDIOVASCULAR: Normal. OSSEOUS STRUCTURES: No significant abnormalities. VISUALIZED UPPER ABDOMEN: Normal. OTHER FINDINGS: None. IMPRESSION: No active disease.
--- NOTE | 2016-08-15 13:31 | CP.PCM.HP ---
History of Present Illness - History of Present Illness History of Present Illness: This is a 81 y/o male admitted for increasing abdominal distention Has a hx of ascites from chronic liver disease, DM 2 hyperlipidemia. He was recently admitted for the same symptoms and had paracentesis and was sent home on lasix and aldactone. Noted stable Hgb and GFR at 33. Has no fever Has no vomiting. Present on Admission - Present on Admission Any Indicators Present on Admission: No History of DVT/PE: No History of Uncontrolled Diabetes: Yes Urinary Catheter: No Decubitus Ulcer Present: No Review of Systems - Respiratory Respiratory: Cough - Gastrointestinal Gastrointestinal: Abdominal Pain Past Patient History - Infectious Disease Hx of Infectious Diseases: None - Past Medical History & Family History Past Medical History?: Yes - Past Social History Smoking Status: Never Smoked - CARDIAC Hx Cardiac Disorders: Yes Hx Cardia Arrhythmia: Yes Hx Hypercholesterolemia: Yes Hx Hypertension: Yes - PULMONARY Hx Respiratory Disorders: Yes Hx Pneumonia: Yes - NEUROLOGICAL Hx Neurological Disorder: No - HEENT Hx HEENT Problems: No - RENAL Hx Chronic Kidney Disease: No - ENDOCRINE/METABOLIC Hx Endocrine Disorders: Yes Hx Diabetes Mellitus Type 2: Yes - HEMATOLOGICAL/ONCOLOGICAL Hx Blood Disorders: Yes Hx AIDS: No Hx Anemia: Yes Hx Blood Transfusions: Yes Hx Blood Transfusion Reaction: No Hx Human Immunodeficiency Virus (HIV): No - INTEGUMENTARY Hx Dermatological Problems: No - MUSCULOSKELETAL/RHEUMATOLOGICAL Hx Musculoskeletal Disorders: Yes Hx Arthritis: Yes Hx Falls: Yes - GASTROINTESTINAL Hx Gastrointestinal Disorders: Yes Hx Esophageal Varices: Yes Other/Comment: Liver cirrhosis - GENITOURINARY/GYNECOLOGICAL Hx Genitourinary Disorders: No - PSYCHIATRIC Hx Psychophysiologic Disorder: Yes Hx Depression: Yes Hx Substance Use: No - SURGICAL HISTORY Hx Coronary Stent: Yes (stentsx2 2011) - ANESTHESIA Hx Anesthesia: Yes Hx Anesthesia Reactions: No Hx Malignant Hyperthermia: No Meds Allergies/Adverse Reactions: Allergies Allergy/AdvReac Type Severity Reaction Status Date / Time lisinopril Allergy RASH Verified 02/17/16 11:51 Penicillins Allergy RASH Verified 02/17/16 11:51 Physical Exam - Head Exam Head Exam: NORMAL INSPECTION - Eye Exam Eye Exam: Normal appearance - ENT Exam ENT Exam: Mucous Membranes Moist - Cardiovascular Exam Cardiovascular Exam: REGULAR RHYTHM - GI/Abdominal Exam GI & Abdominal Exam: Diminished Bowel Sounds, Distended, Normal Bowel Sounds Results - Vital Signs Recent Vital Signs: Last Vital Signs Temp 98.5 F 08/15/16 12:00 Pulse 71 08/15/16 12:00 Resp 18 08/15/16 12:00 BP 131/67 08/15/16 12:00 Pulse Ox 99 08/15/16 12:00 - Labs Result Diagrams: 08/15/16 06:30 08/15/16 06:30 Labs: Laboratory Results - last 24 hr 08/14/16 08/15/16 08/15/16 21:16 05:37 06:30 WBC RBC Hgb Hct MCV MCH MCHC RDW Plt Count Sodium Potassium Chloride Carbon Dioxide Anion Gap BUN Creatinine Est GFR ( Amer) Est GFR (Non-Af Amer) POC Glucose (mg/dL) 131 H 108 Random Glucose Calcium Total Bilirubin AST ALT Alkaline Phosphatase Ammonia 26 Total Protein Albumin Globulin Albumin/Globulin Ratio Vitamin B12 TSH 3rd Generation 08/15/16 08/15/16 08/15/16 06:30 06:30 11:04 WBC 5.8 RBC 4.04 L Hgb 13.2 Hct 39.2 MCV 96.9 H MCH 32.7 H MCHC 33.8 RDW 13.7 Plt Count 170 Sodium 135 Potassium 4.2 Chloride 98 Carbon Dioxide 27 Anion Gap 14 BUN 41 H Creatinine 2.0 H Est GFR ( Amer) 39 Est GFR (Non-Af Amer) 32 POC Glucose (mg/dL) 190 H Random Glucose 87 Calcium 9.5 Total Bilirubin 1.5 H AST 58 ALT 41 Alkaline Phosphatase 377 H Ammonia Total Protein 8.4 H Albumin 3.5 Globulin 5.0 H Albumin/Globulin Ratio 0.7 L Vitamin B12 626 TSH 3rd Generation 1.42 Assessment & Plan (1) Ascites Status: Acute (2) Abdominal pain Status: Acute (3) Diabetes mellitus Status: Acute (4) HTN (hypertension) Status: Acute (5) CKD stage 3 due to type 2 diabetes mellitus Status: Acute - Assessment and Plan (Free Text) Plan: cautious diuresis monitor lytes GI eval cont tx PT.
--- NOTE | 2016-08-15 14:50 | CARD ---
APPROVED REPORT EKG Measurement Heart [id number] <Conclusion> Normal sinus rhythm with sinus arrhythmia Left axis deviation Nonspecific intraventricular block Cannot rule out Anterior infarct, age undetermined Abnormal ECG
[2016-08-15] MEDS: Insulin Detemir 100 Units/ml Inj SC SCH (21:56)
[2016-08-16] MEDS: Insulin Lispro (humaLOG) 100 Units/ml Inj SC SCH ×3 (10:08→19:35)
[2016-08-16] MEDS: Multivitamin With Minerals Tab PO SCH (10:10)
[2016-08-16] MEDS: Pantoprazole 40 mg EC Tab PO SCH (10:10)
[2016-08-16] MEDS: Megestrol Acetate 40 mg/ml Cup PO SCH (10:10)
[2016-08-16] MEDS: Lactulose 10 gm/15 ml Syrup PO SCH ×2 (10:11→19:36)
[2016-08-16] MEDS: Metoprolol Succinate 50 mg XL Tab PO SCH (10:11)
--- NOTE | 2016-08-16 11:15 | CP.PCM.PN ---
Subjective - Date & Time of Evaluation Date of Evaluation: 08/16/16 Time of Evaluation: 11:15 - Subjective Subjective: Patient remains stable Has no SOB Has no chest pain No fever or vomiting Objective - Vital Signs/Intake and Output Vital Signs (last 24 hours): Temp Pulse Resp BP Pulse Ox 98.3 F 73 20 106/56 L 98 08/16/16 08:00 08/16/16 10:11 08/16/16 08:00 08/16/16 10:11 08/16/16 08:00 - Medications Medications: Current Medications Acetaminophen (Tylenol 325mg Tab) 650 mg PO Q6 PRN PRN Reason: Pain, Mild (1-3) Last Admin: 08/15/16 14:38 Dose: 650 mg Aspirin (Ecotrin) 81 mg PO DAILY [facility] Last Admin: 08/16/16 10:08 Dose: 81 mg Furosemide (Lasix) 40 mg PO BID [facility] Last Admin: 08/16/16 10:10 Dose: 40 mg Insulin Detemir (Levemir) 15 units SC HS [facility] Last Admin: 08/15/16 21:56 Dose: 15 units Insulin Human Lispro (Humalog) 6 units SC TID [facility] Last Admin: 08/16/16 10:08 Dose: 6 units Isosorbide Dinitrate (Isordil) 30 mg PO DAILY [facility] Last Admin: 08/16/16 10:09 Dose: 30 mg Lactulose (Enulose) 10 gm PO BID [facility] Last Admin: 08/16/16 10:11 Dose: 10 gm Megestrol Acetate (Megace) 400 mg PO DAILY [facility] Last Admin: 08/16/16 10:10 Dose: 400 mg Metoprolol Succinate (Toprol Xl) 50 mg PO DAILY [facility] Last Admin: 08/16/16 10:11 Dose: 50 mg Multivitamins/Minerals (Therapeutic-M Tab) 1 tab PO DAILY [facility] Last Admin: 08/16/16 10:10 Dose: 1 tab Pantoprazole Sodium (Protonix Ec Tab) 40 mg PO DAILY [facility] Last Admin: 08/16/16 10:10 Dose: 40 mg Sertraline HCl (Zoloft) 25 mg PO HS [facility] Last Admin: 08/15/16 21:56 Dose: 25 mg Spironolactone (Aldactone) 50 mg PO BID [facility] Last Admin: 08/16/16 10:08 Dose: 50 mg Assessment and Plan (1) Ascites Status: Acute (2) Abdominal pain Status: Acute (3) Diabetes mellitus Status: Acute (4) HTN (hypertension) Status: Acute (5) CKD stage 3 due to type 2 diabetes mellitus Status: Acute
[2016-08-16] MEDS ORDERED: Dextrose 50% SYRINGE Inj (50 ml) ONE (13:40)
[2016-08-16] MEDS: Dextrose 50% SYRINGE Inj (50 ml) IVP ONE ×2 (13:50→14:02)
[2016-08-16] MEDS ORDERED: Lidocaine 1% Inj (20ml) ONE (14:16)
--- NOTE | 2016-08-16 14:34 | PCM.SURG1 ---
Surgeon's Initial Post Op Note - Surgeon's Notes Surgeon: Levar Garza MD Slot Host: NONE Type of Anesthesia: Local Pre-Operative Diagnosis: Ascites Operative Findings: US showed a large amount of ascites Post-Operative Diagnosis: Ascites Operation Performed: US guided paracentesis. Specimen/Specimens Removed: 8 liters of straw colored fluid Estimated Blood Loss: EBL {In ML}: 0 Blood Products Given: N/A Drains Used: No Drains Post-Op Condition: Fair Date of Surgery/Procedure: 08/16/16 Time of Surgery/Procedure: 15:11
[2016-08-16 15:07] LABS: BODY FLUID TYPE PERITONEAL/ASCITES
[2016-08-16 16:11] LABS: BF GROSS APPEARANCE CLEAR (CLEAR)
[2016-08-16] MEDS: Insulin Detemir 100 Units/ml Inj SC SCH (22:26)
[2016-08-16 23:39] VITALS: RESP 20
[2016-08-17] MEDS: Lactulose 10 gm/15 ml Syrup PO SCH (09:40)
[2016-08-17] MEDS: Metoprolol Succinate 50 mg XL Tab PO SCH (09:42)
[2016-08-17] MEDS: Multivitamin With Minerals Tab PO SCH (09:42)
[2016-08-17] MEDS: Pantoprazole 40 mg EC Tab PO SCH (09:42)
[2016-08-17] MEDS: Insulin Lispro (humaLOG) 100 Units/ml Inj SC SCH ×2 (09:49→13:13)
[2016-08-17 12:45] VITALS: BP 107/69; PULSE 83; TEMP 97.8; O2SAT 100
[2016-08-17] MEDS: Megestrol Acetate 40 mg/ml Cup PO SCH (13:13)
--- NOTE | 2016-08-17 16:10 | CP.PCM.DIS ---
Provider - Provider Date of Admission: 08/15/16 16:39 Attending physician: Lars Sadler MD Time Spent in preparation of Discharge (in minutes): 30 Diagnosis - Discharge Diagnosis (1) Ascites Status: Acute Hospital Course - Lab Results Lab Results: Most Recent Lab Values WBC 5.8 K/uL (4.8-10.8) 08/15/16 06:30 RBC 4.04 Mil/uL (4.40-5.90) L 08/15/16 06:30 Hgb 13.2 g/dL (12.0-18.0) 08/15/16 06:30 Hct 39.2 % (35.0-51.0) 08/15/16 06:30 MCV 96.9 fl (80.0-94.0) H 08/15/16 06:30 MCH 32.7 pg (27.0-31.0) H 08/15/16 06:30 MCHC 33.8 g/dL (33.0-37.0) 08/15/16 06:30 RDW 13.7 % (11.5-14.5) 08/15/16 06:30 Plt Count 170 K/uL (130-400) 08/15/16 06:30 MPV 8.7 fl (7.2-11.7) 08/14/16 17:57 Neut % (Auto) 58.8 % (50.0-75.0) 08/14/16 17:57 Lymph % (Auto) 19.7 % (20.0-40.0) L 08/14/16 17:57 [place] % (Auto) 19.0 % (0.0-10.0) H 08/14/16 17:57 Eos % (Auto) 1.8 % (0.0-4.0) 08/14/16 17:57 Baso % (Auto) 0.7 % (0.0-2.0) 08/14/16 17:57 Neut # 3.8 K/uL (1.8-7.0) 08/14/16 17:57 Lymph # 1.3 K/uL (1.0-4.3) 08/14/16 17:57 [place] # 1.2 K/uL (0.0-0.8) H 08/14/16 17:57 Eos # 0.1 K/uL (0.0-0.7) 08/14/16 17:57 Baso # 0.0 K/uL (0.0-0.2) 08/14/16 17:57 PT 16.6 Seconds (9.8-13.1) H 08/16/16 13:00 INR 1.5 (0.9-1.2) H 08/16/16 13:00 Sodium 135 mmol/l (132-148) 08/15/16 06:30 Potassium 4.2 MMOL/L (3.6-5.0) 08/15/16 06:30 Chloride 98 mmol/L (98-107) 08/15/16 06:30 Carbon Dioxide 27 mmol/L (22-30) 08/15/16 06:30 Anion Gap 14 (10-20) 08/15/16 06:30 BUN 41 mg/dl (9-20) H 08/15/16 06:30 Creatinine 2.0 mg/dL (0.8-1.5) H 08/15/16 06:30 Est GFR ( Amer) 39 08/15/16 06:30 Est GFR (Non-Af Amer) 32 08/15/16 06:30 POC Glucose (mg/dL) 104 mg/dL (65-110) 08/17/16 11:58 Random Glucose 87 mg/dL (75-110) 08/15/16 06:30 Calcium 9.5 mg/dL (8.4-10.2) 08/15/16 06:30 Total Bilirubin 1.5 mg/dl (0.2-1.3) H 08/15/16 06:30 AST 58 U/L (17-59) 08/15/16 06:30 ALT 41 U/L (21-72) 08/15/16 06:30 Alkaline Phosphatase 377 U/L (38-126) H 08/15/16 06:30 Ammonia 26 umo/L (16-60) 08/15/16 06:30 Troponin I 0.0360 ng/mL (0.00-0.120) 08/14/16 17:57 NT-Pro-B Natriuret Pep 1910 pg/ml (0-900) H 08/14/16 17:57 Total Protein 8.4 G/DL (6.3-8.2) H 08/15/16 06:30 Albumin 3.5 g/dL (3.5-5.0) 08/15/16 06:30 Globulin 5.0 gm/dL (2.2-3.9) H 08/15/16 06:30 Albumin/Globulin Ratio 0.7 (1.0-2.1) L 08/15/16 06:30 Lipase 80 U/L (23-300) 08/14/16 17:57 Vitamin B12 626 pg/mL (239-931) 08/15/16 06:30 TSH 3rd Generation 1.42 mIU/ML (0.46-4.68) 08/15/16 06:30 Fluid Source Peritoneal/ascites 08/16/16 15:06 Fluid Appearance Clear (CLEAR) 08/16/16 15:06 Fluid WBC 56.0 /mm3 (0.0-300.0) 08/16/16 15:06 Fluid RBC 87.0 /mm3 (0.0-0.0) H 08/16/16 15:06 Fluid Tot Cell Count TEST NOT PERFORMED 08/16/16 15:06 Fluid Neutrophils 14.0 % (0-0) H 08/16/16 15:06 Fluid Lymphocytes 36.0 % (0-0) H 08/16/16 15:06 Fld Monocyte/Macrophag 20 % (0-0) H 08/16/16 15:06 Fluid Total Protein 3.6 g/dL (NONE ESTABLISHED) 08/16/16 15:06 Fluid LDH 263 IU (NONE ESTABLISHED) 08/16/16 15:06 Fluid Comment Yellow 08/16/16 15:06 - Hospital Course Hospital Course: 81 yo M with a past medical history of chronic liver disease, ascites, diabetes , hypertension and hypercholesterolemia who presented to the emergency department with a complaint of shortness of breath, nausea, and dizziness for 3 days. Ascites present. GI consulted. Paracentesis completed without complications approx 8L removed. Tests for SBP negative. Patients symptoms improved. Cleared by GI. Rx given to patient. Patient to follow up with PMD and GI this week. No other complications during admission. Discharge Exam - Head Exam Head Exam: NORMAL INSPECTION - Eye Exam Eye Exam: Normal appearance - Respiratory Exam Respiratory Exam: Clear to PA & Lateral, UNREMARKABLE - Cardiovascular Exam Cardiovascular Exam: REGULAR RHYTHM, RRR, +S1, +S2 - GI/Abdominal Exam GI & Abdominal Exam: Normal Bowel Sounds, Soft. absent: Tenderness - Neurological Exam Neurological exam: Alert, Oriented x3 - Psychiatric Exam Psychiatric exam: Normal Affect, Normal Mood - Skin Skin Exam: Dry, Intact, Normal Color, Warm Discharge Plan - Discharge Medications Prescriptions: Furosemide 40 mg PO DAILY #30 tablet Potassium Chloride [K-Dur 20] 20 meq PO DAILY #30 tab Spironolactone [Aldactone] 50 mg PO BID #60 tab - Follow Up Plan Condition: STABLE Disposition: HOME/ ROUTINE Instructions: Chronic Kidney Disease (DC) Referrals: Carlos Corado MD [Staff Provider] - Tae Ruby MD, PhD [Staff Provider] -
--- NOTE | 2016-08-18 18:18 | CON ---
DATE: 08/15/2016 REFERRING PHYSICIAN: Dr. Sadler. REASON FOR CONSULTATION: Ascites. HISTORY OF PRESENT ILLNESS: This is a pleasant 81-year-old male on my service. He has a history of ascites in the past, chronic liver disease, hyperlipidemia, diabetes, essentially admitted for shortn ess of breath and abdominal distention. is taking diuretics at home, but comes in with increa sing abdominal girth. The patient has no fevers or chills, nausea or vomiting. Currently lying in b ed comfortable, in no apparent distress. PAST MEDICAL HISTORY: As above. PAST SURGICAL HISTORY: As above. MEDICATIONS: Have been reviewed. REVIEW OF SYSTEMS: All other systems have been reviewed and negative apart in HPI. PHYSICAL EXAMINATION: VITAL SIGNS: Here in the hospital grossly unremarkable. GENERAL: This is a pleasant, elderly-appearing male lying in bed, comfortable, in no apparent distre ss. HEAD: Normocephalic, atraumatic. EYES: Pupils equally reactive to light bilaterally. No conjunctival pallor or icterus. NECK: Supple, normal range of motion. No lymphadenopathy appreciated. LUNGS: Coarse breath sounds bilaterally. HEART: S1, S2, regular rate and rhythm. No murmur appreciated. ABDOMEN: Soft. It is distended. Bowel sounds are present. There is a present, but there is no rebound, no guarding. RECTAL: Deferred. EXTREMITIES: There is edema bilaterally. Pulses present as well. NEUROLOGIC: Alert and oriented x 3. LABORATORY DATA: Labs reviewed. WBC is 5.8, hemoglobin is 13.2, hematocrit is , bilirubin 0.5. AST, ALT are unremarkable. Ultrasound shows ascites. ASSESSMENT AND PLAN: This is an 81-year-old female with ascites. Plan for paracentesis. Resume diu retics. Discharge planning. Thank you for the consult. Tae Ruby MD, PhD cc:Lars Sadler MD [id number] TT: 08/18/2016 18:17:54 Confirmation # [id number] Dictation # [id number]
== END 2016-08-17 14:45 | disposition home or self-care (01) | DRG 433 ==
LOC: H.ER 16:30 → H.ERHOLD 18:42 → H.TEL 20:54 → OBSVTOIN 08-15 16:39
PROVIDERS: ADMIT Family Medicine; ATTEND Family Medicine
PROC: 0W9G3ZZ Drainage of Peritoneal Cavity, Percutaneous Approach (ICD-10-PCS; principal; 2016-08-16)
DX: K74.60 Unspecified cirrhosis of liver (principal); R18.8 Other ascites; E11.22 Type 2 diabetes mellitus with diabetic chronic kidney disease; N18.3 Chronic kidney disease, stage 3 (moderate); E78.00 Pure hypercholesterolemia, unspecified; E78.5 Hyperlipidemia, unspecified; I12.9 Hypertensive chronic kidney disease with stage 1 through stage 4 chronic kidney disease, or unspecified chronic kidney disease; I25.10 Atherosclerotic heart disease of native coronary artery without angina pectoris; Z95.5 Presence of coronary angioplasty implant and graft; F32.9 Major depressive disorder, single episode, unspecified; Z88.0 Allergy status to penicillin

== ENCOUNTER 2016-10-04 11:40 | Inpatient (IN) | payer MEDICARE ==
[2016-10-04 11:40] VITALS: BMI 24.7
[2016-10-04 13:16] LABS: BASO % 0.7 % (0.0-2.0); EOS # 0.1 K/uL (0.0-0.7); EOS % 1.1 % (0.0-4.0); HEMOGLOBIN 12.7 g/dL (12.0-18.0); LYMPH % 15.8 % (20.0-40.0); MEAN CELL VOLUME 98.3 fl (80.0-94.0); MEAN CORPUSCULAR HEMOGLOBIN 32.9 pg (27.0-31.0); MEAN CORPUSCULAR HGB CONC 33.4 g/dL (33.0-37.0); MEAN PLATELET VOLUME 8.8 fl (7.2-11.7); MONO % 15.9 % (0.0-10.0); NEUT % 66.5 % (50.0-75.0); NRBC % 0.1 % (0.0-0.0); RBC 3.87 Mil/uL (4.40-5.90); RED CELL DISTRIBUTION WIDTH 14.8 % (11.5-14.5)
--- NOTE | 2016-10-04 13:18 | ED PDOC ---
HPI: Abdomen Time Seen by Provider: 10/04/16 12:22 Chief Complaint (Nursing): Abdominal Pain Chief Complaint (Provider): Abdominal pain History Per: Patient History/Exam Limitations: no limitations Onset/Duration Of Symptoms: Days (x3) Current Symptoms Are (Timing): Still Present Additional Complaint(s): Eleazar Sinclair, 81 year old male with a past medical history inclusive of liver disease with ascites and renal insufficiency, presents to the ED with increased abdominal distension associated with epigastric pain and shortness of breath occurring for 3 days prior to arrival. He denies fever, vomiting, and diarrhea. PMD: Carlos Corado MD Past Medical History Reviewed: Historical Data, Nursing Documentation, Vital Signs Vital Signs: Last Vital Signs Temp 97.7 F 10/04/16 12:11 Pulse 71 10/04/16 12:11 Resp 18 10/04/16 12:11 BP 129/59 L 10/04/16 12:11 Pulse Ox 100 10/04/16 13:21 - Medical History PMH: Anemia, Arthritis, CAD, Cardia Arrhythmia, Depression, Diabetes, HTN, Hypercholesterolemia, Pneumonia Denies: Hepatitis, HIV, Chronic Kidney Disease, Seizures, Sexually Transmitted Disease Other PMH: liver disease with ascites and renal insufficiency - Surgical History Surgical History: Coronary Stent (stentsx2 2011) - Family History Family History: States: Unknown Family Hx - Immunization History Hx Influenza Vaccination: No Hx Pneumococcal Vaccination: No - Home Medications Home Medications: Ambulatory Orders Medication Instructions Recorded Insulin Glargine, Recombina 15 units SC HS 01/23/16 [Lantus] Omeprazole 20 mg PO DAILY 01/23/16 Aspirin [Adult Low Dose Aspirin EC] 81 mg PO DAILY #30 tablet. 06/04/16 Hydroxyzine HCl 25 mg PO Q8H PRN 07/23/16 Insulin Lispro [humALOG] 6 unit SC TID 07/23/16 Isosorbide Dinitrate 30 mg PO DAILY 07/23/16 Lactulose 10 gm PO BID PRN 07/23/16 Metoprolol Succinate [Toprol XL] 50 mg PO DAILY 07/23/16 Mv,Min10/Folic Acid/D3/Ala/Lut 1 tab PO DAILY 07/23/16 [Strovite One Caplet] oxyCODONE [oxyCODONE Immediate 5 mg PO TID PRN 05/19/17 Release Tab] Megestrol Acetate [Megace] 400 mg PO DAILY #7 07/27/16 Furosemide 40 mg PO DAILY #30 tablet 08/17/16 Potassium Chloride [K-Dur 20] 20 meq PO DAILY #30 tab 08/17/16 Spironolactone [Aldactone] 50 mg PO BID #60 tab 08/17/16 - Allergies Allergies/Adverse Reactions: Allergies Allergy/AdvReac Type Severity Reaction Status Date / Time lisinopril Allergy RASH Verified 02/17/16 11:51 Penicillins Allergy RASH Verified 02/17/16 11:51 Review of Systems ROS Statement: Except As Marked, All Systems Reviewed And Found Negative Constitutional: Negative for: Fever Respiratory: Positive for: Shortness of Breath Gastrointestinal: Positive for: Abdominal Pain (abdominal distension with epigastric pain). Negative for: Vomiting, Diarrhea Physical Exam - Reviewed Nursing Documentation Reviewed: Yes Vital Signs Reviewed: Yes - Physical Exam Appears: Positive for: Well, Non-toxic, No Acute Distress Head Exam: Positive for: ATRAUMATIC, NORMAL INSPECTION, NORMOCEPHALIC Cardiovascular/Chest: Positive for: Regular Rate, Rhythm Respiratory: Positive for: Decreased Breath Sounds (at bases ) Gastrointestinal/Abdominal: Positive for: Asicites (tense asicites with fluid waves ). Negative for: Tenderness Extremity: Positive for: Normal ROM. Negative for: Other (no edema) - Laboratory Results Result Diagrams: 10/04/16 13:05 10/04/16 13:05 - ECG O2 Sat by Pulse Oximetry: 100 Medical Decision Making Medical Decision Making: Impression: Abdominal distension associated with epigastric pain and shortness of breath Plan: * ED EKG * COMP Metabolic Panel * CBC (With Differential) * Cervical Spine Complete [RAD] * LS Spine with OBL > 18 yrs Old [RAD] * Duplex Lower Extrm Vein Left [US] * Reevaluation Scribe Attestation: Documented by Marilee Chisholm, acting as a scribe for Kody Diop MD. Provider Scribe Attestation: All medical record entries made by the Scribe were at my direction and personally dictated by me. I have reviewed the chart and agree that the record accurately reflects my personal performance of the history, physical exam, medical decision making, and the department course for this patient. I have also personally directed, reviewed, and agree with the discharge instructions and disposition. Disposition - Clinical Impression Clinical Impression: Ascites, Renal insufficiency - Patient ED Disposition Is Patient to be Admitted: Yes - Disposition Disposition Time: 14:40 Condition: FAIR Forms: [employer] (Italian) - Pt Status Changed To: Hospital Disposition Of: Observation - POA Present On Arrival: None
[2016-10-04 13:27] LABS: ALB/GLOB RATIO 0.8 (1.0-2.1); ALBUMIN 3.4 g/dL (3.5-5.0); ALT/SGPT 80 U/L (21-72); AST/SGOT 72 U/L (17-59); BLOOD UREA NITROGEN 34 mg/dl (9-20); CALCIUM 9.4 mg/dL (8.4-10.2); GFR AFRICAN-AMERICAN > 60; GFR NON-AFRICAN AMERICAN 53
--- NOTE | 2016-10-04 14:23 | RAD ---
PROCEDURE: Cervical Spine Radiographs. HISTORY: Pain. No history of recent/ related trauma provided COMPARISON: None. FINDINGS: BONES: Reversal of normal lordosis with mild kyphosis. No fractures identified. DISC SPACES: Disc degenerative changes primarily affecting mid and lower cervical spine including non marginal osteophyte formation anteriorly and disc space narrowing she SOFT TISSUES: Normal. No prevertebral soft tissue swelling. OTHER FINDINGS: None. IMPRESSION: No acute findings related to/accounting for the clinical presentation.
--- NOTE | 2016-10-04 14:41 | RAD ---
PROCEDURE: Radiographs of the Lumbar Spine. HISTORY: trauma r/o fx COMPARISON: No prior. FINDINGS: BONES: Normal alignment. No listhesis. No fracture. DISC SPACES: Preserved Mild non marginal osteophyte formation upper lumbar spine. OTHER FINDINGS: Calcified nonaneurysmal abdominal aorta. IMPRESSION: No significant or acute findings to account for/ related to the clinical presentation.
[2016-10-04] MEDS ORDERED: Pneumococcal 23-Valent Vaccine IM ONE (17:37)
[2016-10-04] MEDS: Insulin Detemir 100 Units/ml Inj SC SCH (22:10)
[2016-10-04] MEDS: Dextrose 5%/0.45% NS 1,000 ML IV SCH (22:54)
[2016-10-05 07:08] LABS: MEAN CORPUSCULAR HEMOGLOBIN 32.7 pg (27.0-31.0); MEAN CORPUSCULAR HGB CONC 33.3 g/dL (33.0-37.0); RBC 3.98 Mil/uL (4.40-5.90); RED CELL DISTRIBUTION WIDTH 14.7 % (11.5-14.5); WHITE BLOOD COUNT 4.8 K/uL (4.8-10.8)
[2016-10-05 07:17] LABS: ALBUMIN 3.1 g/dL (3.5-5.0); ALT/SGPT 67 U/L (21-72); AST/SGOT 50 U/L (17-59); BLOOD UREA NITROGEN 28 mg/dl (9-20); CALCIUM 8.9 mg/dL (8.4-10.2); GFR AFRICAN-AMERICAN > 60; GFR NON-AFRICAN AMERICAN > 60
[2016-10-05 07:35] LABS: INR 1.3 (0.9-1.2); PARTIAL THROMBOPLASTIN TIME 30.8 Seconds (25.6-37.1)
[2016-10-05 07:42] LABS: ALB/GLOB RATIO 0.8 (1.0-2.1)
[2016-10-05] MEDS: Megestrol Acetate 40 mg/ml Cup PO SCH (09:18)
[2016-10-05] MEDS: Pantoprazole 20 mg EC Tab PO SCH (09:23)
[2016-10-05] MEDS: Multivitamin With Minerals Tab PO SCH (09:24)
[2016-10-05] MEDS: Insulin Lispro (humaLOG) 100 Units/ml Inj SC SCH ×3 (09:24→18:04)
[2016-10-05] MEDS: Metoprolol Succinate 50 mg XL Tab PO SCH (09:25)
--- NOTE | 2016-10-05 11:27 | RAD ---
HISTORY: For IR consult COMPARISON: 08/14/2016. FINDINGS: LUNGS: No active pulmonary disease. PLEURA: No significant pleural effusion identified, no pneumothorax apparent. CARDIOVASCULAR: No radiographic findings to suggest acute or significant cardiovascular disease. OSSEOUS STRUCTURES: No significant abnormalities. VISUALIZED UPPER ABDOMEN: Normal. OTHER FINDINGS: None. IMPRESSION: No active disease. No significant interval change compared to the prior examination(s).
[2016-10-05] MEDS: Dextrose 5%/0.45% NS 1,000 ML IV SCH (11:31)
--- NOTE | 2016-10-05 11:39 | CP.PCM.HP ---
<Matilda Doe - Last Filed: 10/05/16 15:49> History of Present Illness - History of Present Illness History of Present Illness: This is a 81 year old male with a past medical history of ascites from chronic liver disease, DM 2 ,hyperlipidemia, renal insufficiency, presents to the ED with increased abdominal distension associated with epigastric pain and shortness of breath occurring for 3 days prior to arrival Patient denies fevers , chills, nausea, vomiting, dizziness or other complains at this evaluation. Present on Admission - Present on Admission Any Indicators Present on Admission: No History of DVT/PE: No History of Uncontrolled Diabetes: No Urinary Catheter: No Decubitus Ulcer Present: No Review of Systems - Constitutional Constitutional: As Per HPI Past Patient History - Infectious Disease Hx of Infectious Diseases: None - Past Medical History & Family History Past Medical History?: Yes - Past Social History Smoking Status: Never Smoked - CARDIAC Hx Cardia Arrhythmia: Yes Hx Hypercholesterolemia: Yes Hx Hypertension: Yes - PULMONARY Hx Pneumonia: Yes - NEUROLOGICAL Hx Seizures: No - HEENT Hx HEENT Problems: No - RENAL Hx Chronic Kidney Disease: No - ENDOCRINE/METABOLIC Hx Endocrine Disorders: Yes Hx Diabetes Mellitus Type 2: Yes - HEMATOLOGICAL/ONCOLOGICAL Hx Anemia: Yes Hx Human Immunodeficiency Virus (HIV): No - INTEGUMENTARY Hx Dermatological Problems: No - MUSCULOSKELETAL/RHEUMATOLOGICAL Hx Arthritis: Yes Hx Falls: No - GASTROINTESTINAL Hx Gastrointestinal Disorders: Yes Hx Esophageal Varices: Yes Other/Comment: Liver cirrhosis - GENITOURINARY/GYNECOLOGICAL Hx Sexually Transmitted Disorders: No - PSYCHIATRIC Hx Depression: Yes - SURGICAL HISTORY Hx Coronary Stent: Yes (stentsx2 2011) - ANESTHESIA Hx Anesthesia: Yes Hx Anesthesia Reactions: No Hx Malignant Hyperthermia: No Meds Allergies/Adverse Reactions: Allergies Allergy/AdvReac Type Severity Reaction Status Date / Time lisinopril Allergy RASH Verified 02/17/16 11:51 Penicillins Allergy RASH Verified 02/17/16 11:51 Physical Exam - Constitutional Appears: No Acute Distress - Head Exam Head Exam: NORMAL INSPECTION - ENT Exam ENT Exam: Mucous Membranes Moist - Respiratory Exam Respiratory Exam: Clear to Auscultation Bilateral, NORMAL BREATHING PATTERN - Cardiovascular Exam Cardiovascular Exam: REGULAR RHYTHM, +S1, +S2 - GI/Abdominal Exam GI & Abdominal Exam: Distended, Soft, Tenderness (mild tender to palpation, diffuse. Fluid wave noted.). absent: Guarding, Rigid - Extremities Exam Extremities exam: Positive for: normal inspection. Negative for: calf tenderness, pedal edema - Neurological Exam Neurological exam: Alert, Oriented x3 Results - Vital Signs Recent Vital Signs: Last Vital Signs Temp 97.7 F 10/05/16 09:22 Pulse 83 10/05/16 09:25 Resp 18 10/05/16 09:22 BP 123/67 10/05/16 09:25 Pulse Ox 96 10/05/16 09:22 - Labs Result Diagrams: 10/05/16 06:00 10/05/16 06:00 Labs: Laboratory Results - last 24 hr 10/05/16 10:51 POC Glucose (mg/dL) 178 H Assessment & Plan - Assessment and Plan (Free Text) Assessment: 81 year old male with a past medical history of ascites from chronic liver disease, admitted with recurrent ascites for paracentesis procedure. Plan: Ascites secondary to Liver cirrhosis -IR consult appreciated for paracentesis PT/INR: 15.0/1.3 CBC: showed thrombocytopenia, but more than 100 c/w Furosemide 40 mg PO daily c/w spirinolactone 50 mg BID PO c/w monitor for SBP Diabetes Mellitus type 2 c/w home medications Hypertension c/w home medications CKD most likely secondary to DM type 2 improved from previous labs c/w monitoring - Date & Time Date: 10/05/16 Time: 10:50 <Lars Sadler - Last Filed: 10/06/16 10:11> Results - Vital Signs Recent Vital Signs: Last Vital Signs Temp 98.6 F 10/06/16 08:19 Pulse 79 10/06/16 08:46 Resp 20 10/06/16 08:19 BP 122/71 10/06/16 08:47 Pulse Ox 100 10/06/16 08:19 - Labs Result Diagrams: 10/05/16 06:00 10/05/16 06:00 Labs: Laboratory Results - last 24 hr 10/05/16 10/05/16 10/06/16 10:51 20:54 05:31 POC Glucose (mg/dL) 178 H 268 H 90 Assessment & Plan - Assessment and Plan (Free Text) Plan: I was present during evaluation and discussed with Dr Doe re plans of care and tx. Lars Sadler M.D.
--- NOTE | 2016-10-05 11:53 | CP.PCM.PCO ---
Physician Communication Note - Physician Communication Note Physician Communication Note: Spoke to re-paracentesis,he will give to for tomor
[2016-10-05] MEDS ORDERED: Lidocaine 1% Inj (20ml) ONE (15:26)
[2016-10-05] MEDS ORDERED: Albumin Human 25% (12.5 gm/50 ml) IV ONE (17:00)
--- NOTE | 2016-10-05 17:18 | PCM.SURG1 ---
Surgeon's Initial Post Op Note - Surgeon's Notes Surgeon: Ed Systems Engineer: None Type of Anesthesia: Local Pre-Operative Diagnosis: Ascites Operative Findings: Ascites Post-Operative Diagnosis: Ascites Operation Performed: Paracentesis Specimen/Specimens Removed: 10.2L of clear pale yellow fluid aspirated. Estimated Blood Loss: EBL {In ML}: 1 Blood Products Given: N/A Drains Used: No Drains Post-Op Condition: Good Date of Surgery/Procedure: 10/05/16 Time of Surgery/Procedure: 17:00
[2016-10-05] MEDS: Insulin Detemir 100 Units/ml Inj SC SCH (22:14)
[2016-10-06 08:19] VITALS: PULSE 79; RESP 20; TEMP 98.6; O2SAT 100
[2016-10-06] MEDS: Multivitamin With Minerals Tab PO SCH (08:46)
[2016-10-06] MEDS: Metoprolol Succinate 50 mg XL Tab PO SCH (08:46)
[2016-10-06] MEDS: Pantoprazole 20 mg EC Tab PO SCH (08:47)
[2016-10-06] MEDS: Megestrol Acetate 40 mg/ml Cup PO SCH (08:48)
[2016-10-06] MEDS: Insulin Lispro (humaLOG) 100 Units/ml Inj SC SCH (08:48)
[2016-10-06 08:49] VITALS: BP 122/71
--- NOTE | 2016-10-06 10:14 | CP.PCM.DIS ---
Provider - Provider Date of Admission: 10/05/16 10:38 Attending physician: Lars Sadler MD Time Spent in preparation of Discharge (in minutes): 30 Hospital Course - Lab Results Lab Results: Most Recent Lab Values WBC 4.8 K/uL (4.8-10.8) 10/05/16 06:00 RBC 3.98 Mil/uL (4.40-5.90) L 10/05/16 06:00 Hgb 13.0 g/dL (12.0-18.0) 10/05/16 06:00 Hct 39.0 % (35.0-51.0) 10/05/16 06:00 MCV 98.0 fl (80.0-94.0) H 10/05/16 06:00 MCH 32.7 pg (27.0-31.0) H 10/05/16 06:00 MCHC 33.3 g/dL (33.0-37.0) 10/05/16 06:00 RDW 14.7 % (11.5-14.5) H 10/05/16 06:00 Plt Count 124 K/uL (130-400) L 10/05/16 06:00 MPV 8.8 fl (7.2-11.7) 10/04/16 13:05 Neut % (Auto) 66.5 % (50.0-75.0) 10/04/16 13:05 Lymph % (Auto) 15.8 % (20.0-40.0) L 10/04/16 13:05 [place] % (Auto) 15.9 % (0.0-10.0) H 10/04/16 13:05 Eos % (Auto) 1.1 % (0.0-4.0) 10/04/16 13:05 Baso % (Auto) 0.7 % (0.0-2.0) 10/04/16 13:05 Neut # 4.0 K/uL (1.8-7.0) 10/04/16 13:05 Lymph # 1.0 K/uL (1.0-4.3) 10/04/16 13:05 [place] # 1.0 K/uL (0.0-0.8) H 10/04/16 13:05 Eos # 0.1 K/uL (0.0-0.7) 10/04/16 13:05 Baso # 0.0 K/uL (0.0-0.2) 10/04/16 13:05 PT 15.0 Seconds (9.8-13.1) H 10/05/16 06:00 INR 1.3 (0.9-1.2) H 10/05/16 06:00 APTT 30.8 Seconds (25.6-37.1) 10/05/16 06:00 Sodium 136 mmol/l (132-148) 10/05/16 06:00 Potassium 4.0 MMOL/L (3.6-5.0) 10/05/16 06:00 Chloride 105 mmol/L (98-107) 10/05/16 06:00 Carbon Dioxide 26 mmol/L (22-30) 10/05/16 06:00 Anion Gap 10 (10-20) 10/05/16 06:00 BUN 28 mg/dl (9-20) H 10/05/16 06:00 Creatinine 1.0 mg/dL (0.8-1.5) 10/05/16 06:00 Est GFR ( Amer) > 60 10/05/16 06:00 Est GFR (Non-Af Amer) > 60 10/05/16 06:00 POC Glucose (mg/dL) 90 mg/dL (65-110) 10/06/16 05:31 Random Glucose 174 mg/dL (75-110) H 10/05/16 06:00 Calcium 8.9 mg/dL (8.4-10.2) 10/05/16 06:00 Total Bilirubin 1.2 mg/dl (0.2-1.3) 10/05/16 06:00 AST 50 U/L (17-59) 10/05/16 06:00 ALT 67 U/L (21-72) 10/05/16 06:00 Alkaline Phosphatase 334 U/L (38-126) H D 10/05/16 06:00 Total Protein 7.1 G/DL (6.3-8.2) 10/05/16 06:00 Albumin 3.1 g/dL (3.5-5.0) L 10/05/16 06:00 Globulin 4.1 gm/dL (2.2-3.9) H 10/05/16 06:00 Albumin/Globulin Ratio 0.8 (1.0-2.1) L 10/05/16 06:00 - Hospital Course Hospital Course: This is an 81 y/o male with chronic liver disease who presented with recurrence of ascites with fully distended abdomen despite use of diuretics Paracentesis was performed and was able to evacuate 10,2 liters of fluid. Patient tolerated procedure well an was discharged on a higher dose of lasix and spironolactone. He was advised to follow up with his PMD. Discharge Exam - Head Exam Head Exam: NORMAL INSPECTION - Eye Exam Eye Exam: Normal appearance - Respiratory Exam Respiratory Exam: NORMAL BREATHING PATTERN - Cardiovascular Exam Cardiovascular Exam: REGULAR RHYTHM - GI/Abdominal Exam GI & Abdominal Exam: Normal Bowel Sounds - Neurological Exam Neurological exam: CN II-XII Intact, Oriented x3 - Psychiatric Exam Psychiatric exam: Normal Mood Discharge Plan - Follow Up Plan Condition: FAIR Disposition: HOME/ ROUTINE Instructions: Diabetes Mellitus Type 2 in Adults (DC), Abdominal Paracentesis ( DC), Ascites (DC), Diabetes and Your Skin (DC) Additional Instructions: follow up with PMD. Rx given
[2016-10-06 11:36] LABS: HEMOGLOBIN 13.8 g/dL (12.0-18.0); MEAN CELL VOLUME 97.7 fl (80.0-94.0); MEAN CORPUSCULAR HEMOGLOBIN 33.4 pg (27.0-31.0); MEAN CORPUSCULAR HGB CONC 34.1 g/dL (33.0-37.0); RBC 4.13 Mil/uL (4.40-5.90); WHITE BLOOD COUNT 6.9 K/uL (4.8-10.8)
[2016-10-06 11:42] LABS: ALBUMIN 3.8 g/dL (3.5-5.0); ALT/SGPT 57 U/L (21-72); AST/SGOT 57 U/L (17-59); BLOOD UREA NITROGEN 24 mg/dl (9-20); CALCIUM 9.6 mg/dL (8.4-10.2); GFR AFRICAN-AMERICAN > 60; GFR NON-AFRICAN AMERICAN > 60
--- NOTE | 2016-10-06 13:01 | PQF GENQUE ---
Dr. Sadler, Please clarify the stage of the chronic kidney disease: if known Stage 1 Stage 2 (mild) Stage 3 (moderate) Stage 4 (severe) Stage 5 Other (please specify) Clinically unable to determine Unknown D/C Summary: 81 y/o male with chronic liver disease who presented with recurrence of ascites with fully distended abdomen despite use of diuretics Paracentesis: able to evacuate 10,2 liters of fluid. BUN:34->28->24 Creatinine:1.3->1.0->1.1 GFR:(Af Amer/Non-Af Amer): >60/53-> >60/60-> >60/60 IVFs 80ccs/hr, Albumin 25% x one dose, oral Lasix This form is a permanent part of the medical record Clarification of your documentation is requested to better reflect the severity of illness and intensity of treatment of your patient. Indicators present [] Specify: [] [] Specify: [] [] Specify: [] [] Specify: [] Location in the medical record that reflects the above clinical findings: [] Treatment Provided: [] PHYSICIAN'S RESPONSE Based on your medical judgment of the clinical indicators outlined above please clarify the following: [] Practitioner response [] If unable to determine, please check the box, sign and date. Present On Admission (POA) Indicator: [] Present at the time of admission [] Not present at the time of admission [] Clinically Undetermined In responding to this query, please exercise your independent professional judgment. The fact that a question is asked does not imply that any particular answer is desired or expected. Thank you for your clarification on this documentation. If you have any questions please call. * Thank you, Kay Harrington RN BSN ext. [phone] MTDD
--- NOTE | 2016-10-06 18:28 | CARD ---
APPROVED REPORT EKG Measurement Heart [id number] <Conclusion> Normal sinus rhythm Nonspecific intraventricular block Possible Anterolateral infarct, age undetermined Abnormal ECG
--- NOTE | 2016-10-08 10:53 | US ---
Ultrasound guided paracentesis. Clinical History: Ascites with abdominal pain and distension. Technique: The relative risks and indications for the procedure were explained to the patient and informed written consent obtained. Sonography of the abdomen was performed in a supine position. This revealed a large amount of non-loculated ascites, greatest in the right lower quadrant. A puncture site was selected and the area was prepped and draped in the usual sterile fashion. 1% lidocaine was used to anesthetize the skin and soft tissues. A 5 German paracentesis catheter was trocared into the right lower quadrant under real time ultrasound guidance. A permanent image was stored. 10.2 liters of pale yellow colored fluid aspirated. Impression: Ultrasound-guided paracentesis in the right lower quadrant. 10.2 liters of pale yellow colored fluid was aspirated.
== END 2016-10-06 12:27 | disposition home or self-care (01) | DRG 433 ==
LOC: H.ER 11:40 → H.ERHOLD 14:38 → H.MEDSURG1 17:07 → OBSVTOIN 10-05 10:38
PROVIDERS: ADMIT Family Medicine; ATTEND Family Medicine
PROC: 0W9G3ZZ Drainage of Peritoneal Cavity, Percutaneous Approach (ICD-10-PCS; principal; 2016-10-05)
PROC: 3E0234Z Introduction of Serum, Toxoid and Vaccine into Muscle, Percutaneous Approach (ICD-10-PCS; 2016-10-05)
DX: K74.60 Unspecified cirrhosis of liver (principal); R18.8 Other ascites; E11.22 Type 2 diabetes mellitus with diabetic chronic kidney disease; D64.9 Anemia, unspecified; I12.9 Hypertensive chronic kidney disease with stage 1 through stage 4 chronic kidney disease, or unspecified chronic kidney disease; N18.2 Chronic kidney disease, stage 2 (mild); E78.5 Hyperlipidemia, unspecified; I25.10 Atherosclerotic heart disease of native coronary artery without angina pectoris; M19.90 Unspecified osteoarthritis, unspecified site; E78.00 Pure hypercholesterolemia, unspecified; Z23 Encounter for immunization; Z88.0 Allergy status to penicillin; Z95.5 Presence of coronary angioplasty implant and graft; Z87.01 Personal history of pneumonia (recurrent)

== ENCOUNTER 2016-11-01 12:20 | Inpatient (IN) | payer MEDICARE ==
[2016-11-01 12:20] VITALS: BMI 24.7
[2016-11-01 13:41] LABS: BASO % 0.2 % (0.0-2.0); EOS % 0.2 % (0.0-4.0); HEMATOCRIT 36.4 % (35.0-51.0); LYMPH # 0.6 K/uL (1.0-4.3); LYMPH % 8.9 % (20.0-40.0); MEAN CELL VOLUME 98.3 fl (80.0-94.0); MEAN CORPUSCULAR HGB CONC 33.5 g/dL (33.0-37.0); MEAN PLATELET VOLUME 9.3 fl (7.2-11.7); MONO # 0.6 K/uL (0.0-0.8); MONO % 8.8 % (0.0-10.0); NEUT # 5.8 K/uL (1.8-7.0); NEUT % 81.9 % (50.0-75.0); NRBC % 0.1 % (0.0-0.0); PLATELET COUNT 141 K/uL (130-400); RED CELL DISTRIBUTION WIDTH 15.3 % (11.5-14.5); WHITE BLOOD COUNT 7.1 K/uL (4.8-10.8)
[2016-11-01 14:06] LABS: PARTIAL THROMBOPLASTIN TIME 28.2 Seconds (25.6-37.1)
[2016-11-01 14:35] LABS: ALB/GLOB RATIO 0.8 (1.0-2.1); ALKALINE PHOSPHATASE 423 U/L (38-126); ALT/SGPT 63 U/L (21-72); AST/SGOT 67 U/L (17-59); BILIRUBIN,TOTAL 1.5 mg/dl (0.2-1.3); BLOOD UREA NITROGEN 32 mg/dl (9-20); CALCIUM 9.3 mg/dL (8.4-10.2); CARBON DIOXIDE 25 mmol/L (22-30); CHLORIDE 100 mmol/L (98-107); GFR AFRICAN-AMERICAN > 60; GLUCOSE,RANDOM 310 mg/dL (75-110); POTASSIUM 4.3 MMOL/L (3.6-5.0); SODIUM 135 mmol/l (132-148); TOTAL PROTEIN 7.8 G/DL (6.3-8.2)
--- NOTE | 2016-11-01 14:42 | ED PDOC ---
HPI: Abdomen Time Seen by Provider: 11/01/16 12:46 Chief Complaint (Nursing): Abdominal Pain Chief Complaint (Provider): Abdominal swelling History Per: Patient History/Exam Limitations: no limitations Onset/Duration Of Symptoms: Persistent Outside of [place] travel?: No Current Symptoms Are (Timing): Still Present Location Of Pain/Discomfort: Diffuse Associated Symptoms: denies: Fever, Chills, Chest Pain Additional History Per: Patient Additional Complaint(s): The patient is a 81yo male, pmhx of liver cirrhosis, ascites, CAD with stents, presents to the ED for evaluation of abdominal distention with associated occasional shortness of breath. Patient reports the abdominal swelling has been present for a month but has worsened over the past 4 days, prompting his visit. Pt also reports he was here 1 month ago and has a paracentesis done. Pt states he has intermittent dry cough with associated shortness of breath. He denies any chest pain, fever or abdominal pain. Patient offers no additional medical complaints. PCP: Dr. Carlos eBrnal Past Medical History Reviewed: Historical Data, Nursing Documentation, Vital Signs Vital Signs: Last Vital Signs Temp 98.0 F 11/01/16 12:34 Pulse 72 11/01/16 12:34 Resp 18 11/01/16 12:34 BP 132/74 11/01/16 12:34 Pulse Ox 99 11/01/16 14:50 - Medical History PMH: Anemia, Arthritis, CAD, Cardia Arrhythmia, Depression, Diabetes, HTN, Hypercholesterolemia, Pneumonia Denies: Hepatitis, HIV, Chronic Kidney Disease, Seizures, Sexually Transmitted Disease - Surgical History Surgical History: Coronary Stent (x2 2011) - Family History Family History: States: Unknown Family Hx - Immunization History Hx Influenza Vaccination: No Hx Pneumococcal Vaccination: No - Home Medications Home Medications: Ambulatory Orders Medication Instructions Recorded Insulin Glargine, Recombina 10 units SC HS 01/23/16 [Lantus] Hydroxyzine HCl 25 mg PO Q8H PRN 07/23/16 Insulin Lispro [humALOG] 6 unit SC TID 07/23/16 Isosorbide Dinitrate 30 mg PO DAILY 07/23/16 Metoprolol Succinate [Toprol XL] 50 mg PO DAILY 07/23/16 Furosemide 40 mg PO DAILY #30 tablet 08/17/16 Spironolactone [Aldactone] 50 mg PO BID #60 tab 08/17/16 Docusate [Colace] 100 mg PO TID 10/04/16 Sertraline [Zoloft] 25 mg PO HS 10/04/16 predniSONE [predniSONE Tab] 5 mg PO DAILY 10/04/16 Albuterol Sulfate [Proair Hfa] 2 puff IH Q4H PRN 11/01/16 Aspirin [Adult Low Dose Aspirin EC] 81 mg PO MWF 11/01/16 Omeprazole [Omeprazole] 20 mg PO DAILY 11/01/16 Ondansetron [Zofran Tab] 4 mg PO Q8H 11/01/16 Simethicone [Mylicon Chew Tab] 80 mg PO TID 11/01/16 Vitamin B Complex [Super B-50 1 cap PO DAILY 11/01/16 Complex] Vitamin E [Vitamin E 400 Units Cap] 400 unit PO DAILY 11/01/16 - Allergies Allergies/Adverse Reactions: Allergies Allergy/AdvReac Type Severity Reaction Status Date / Time lisinopril Allergy RASH Verified 02/17/16 11:51 Penicillins Allergy RASH Verified 02/17/16 11:51 Review of Systems ROS Statement: Except As Marked, All Systems Reviewed And Found Negative Constitutional: Negative for: Fever Cardiovascular: Negative for: Chest Pain Respiratory: Positive for: Cough, Shortness of Breath Gastrointestinal: Positive for: Other (abdominal swelling). Negative for: Abdominal Pain Physical Exam - Reviewed Nursing Documentation Reviewed: Yes Vital Signs Reviewed: Yes - Physical Exam Appears: Positive for: Well, Non-toxic, No Acute Distress Head Exam: Positive for: ATRAUMATIC, NORMAL INSPECTION, NORMOCEPHALIC Skin: Positive for: Normal Color, Warm, DRY Eye Exam: Positive for: Normal appearance Neck: Positive for: Normal, Supple Cardiovascular/Chest: Positive for: Regular Rate, Rhythm Respiratory: Positive for: Normal Breath Sounds. Negative for: Respiratory Distress Gastrointestinal/Abdominal: Positive for: Soft, Distended, Asicites ( significant ascites noted upon examination). Negative for: Tenderness Extremity: Positive for: Normal ROM. Negative for: Pedal Edema, Deformity, Swelling Neurologic/Psych: Positive for: Alert, Oriented. Negative for: Motor/Sensory Deficits - Laboratory Results Result Diagrams: 11/01/16 13:30 11/01/16 14:10 - ECG ECG: Positive for: Interpreted By Me, Viewed By Me ECG Rhythm: Positive for: Normal ST Segment, Sinus Rhythm, Left Bundle Branch Block (previous present) Rate: 72 O2 Sat by Pulse Oximetry: 99 (RA) Pulse Ox Interpretation: Normal Medical Decision Making Medical Decision Making: Time: 1255 Impression: Ascites Plan: -- Labs -- CXR -- Urinalysis -- Paracentesis US -- Reassess Time: 1438 Case discussed with IR Dr. Garza who will perform a paracentesis. Case also discussed with Dr. Sadler who will admit the patient. Scribe Attestation: Documented by Tamela Contreras, acting as a scribe for Zen Weinstein MD. Provider Scribe Attestation: All medical record entries made by the Scribe were at my direction and personally dictated by me. I have reviewed the chart and agree that the record accurately reflects my personal performance of the history, physical exam, medical decision making, and the department course for this patient. I have also personally directed, reviewed, and agree with the discharge instructions and disposition. Disposition - Clinical Impression Clinical Impression: Ascites, Dyspnea - Patient ED Disposition Is Patient to be Admitted: Yes Discussed With DrLinden: Lars Sadler Doctor Will See Patient In The: Hospital Counseled Patient/Family Regarding: Studies Performed, Diagnosis - Disposition Disposition Time: 14:30 Condition: FAIR - Pt Status Changed To: Hospital Disposition Of: Observation - POA Present On Arrival: Poor Glycemic Control
[2016-11-01 15:15] LABS: NEUTROPHIL 89 % (42-75); TOTAL CELLS COUNTED 100
[2016-11-01 17:32] LABS: RBC URINE < 1 /hpf (0-3); URINE BACTERIA RARE (<OCC); URINE BILIRUBIN NEGATIVE (NEGATIVE); URINE BLOOD NEGATIVE (NEGATIVE); URINE COLOR AMBER (YELLOW); URINE GLUCOSE (UA) NEG (Normal); URINE KETONE NEGATIVE (NEGATIVE); URINE LEUKOCYTE ESTERASE NEG Leu/uL (Negative); URINE PROTEIN NEGATIVE (NEGATIVE); URINE UROBILINOGEN 0.2-1.0 mg/dL (0.2-1.0); WBC URINE 1 /hpf (0-5)
--- NOTE | 2016-11-01 17:48 | RAD ---
HISTORY: dyspnea COMPARISON: Single chest radiograph 10/04/2016 FINDINGS: LUNGS: No active pulmonary disease. PLEURA: No significant pleural effusion identified, no pneumothorax apparent. CARDIOVASCULAR: Limited cardiomegaly again evident without pulmonary vascular derangement. . OSSEOUS STRUCTURES: No significant abnormalities. VISUALIZED UPPER ABDOMEN: Normal. OTHER FINDINGS: None. IMPRESSION: Limited cardiomegaly without pulmonary vascular derangement. No infiltrate bilaterally.
[2016-11-01] MEDS ORDERED: Albuterol HFA 90 mcg/actuation (8 g) IH PRN (19:20)
[2016-11-01] MEDS: Insulin Detemir 100 Units/ml Inj SC SCH (22:01)
[2016-11-02 06:35] LABS: BASO % 0.5 % (0.0-2.0); EOS # 0.1 K/uL (0.0-0.7); EOS % 1.6 % (0.0-4.0); HEMATOCRIT 36.6 % (35.0-51.0); LYMPH # 0.9 K/uL (1.0-4.3); LYMPH % 15.3 % (20.0-40.0); MEAN CELL VOLUME 99.2 fl (80.0-94.0); MEAN CORPUSCULAR HEMOGLOBIN 32.8 pg (27.0-31.0); MEAN CORPUSCULAR HGB CONC 33.1 g/dL (33.0-37.0); MEAN PLATELET VOLUME 8.7 fl (7.2-11.7); MONO # 0.9 K/uL (0.0-0.8); MONO % 16.4 % (0.0-10.0); NEUT # 3.7 K/uL (1.8-7.0); NEUT % 66.2 % (50.0-75.0); RED CELL DISTRIBUTION WIDTH 14.9 % (11.5-14.5); WHITE BLOOD COUNT 5.6 K/uL (4.8-10.8)
[2016-11-02 06:37] LABS: ALB/GLOB RATIO 0.7 (1.0-2.1); BILIRUBIN,TOTAL 1.1 mg/dl (0.2-1.3); CALCIUM 9.5 mg/dL (8.4-10.2); POTASSIUM 4.3 MMOL/L (3.6-5.0); TOTAL PROTEIN 7.6 G/DL (6.3-8.2)
[2016-11-02] MEDS: Insulin Lispro (humaLOG) 100 Units/ml Inj SC SCH ×3 (08:47→18:17)
[2016-11-02] MEDS: Multivitamin Vitamin B Complex (Nephro-Vite) Tab PO SCH (08:48)
[2016-11-02] MEDS: Simethicone 80 mg Chewtab PO SCH ×3 (08:48→16:23)
[2016-11-02] MEDS: Pantoprazole 40 mg EC Tab PO SCH (08:49)
[2016-11-02] MEDS: Metoprolol Succinate 50 mg XL Tab PO SCH (08:49)
[2016-11-02] MEDS ORDERED: Lidocaine 1% Inj (20ml) ONE (13:25)
--- NOTE | 2016-11-02 14:05 | PCM.SURG1 ---
Surgeon's Initial Post Op Note - Surgeon's Notes Surgeon: Levar Garza MD Radiation Control Technician: NONE Type of Anesthesia: Local Pre-Operative Diagnosis: Ascites Operative Findings: US showed a large amount of ascites Post-Operative Diagnosis: Ascites Operation Performed: US guided paracentesis. Specimen/Specimens Removed: 8 liters of straw colored fluid Estimated Blood Loss: EBL {In ML}: 0 Blood Products Given: N/A Drains Used: No Drains Post-Op Condition: Fair Date of Surgery/Procedure: 11/02/16 Time of Surgery/Procedure: 14:15
[2016-11-02] MEDS: Nystatin 100,000 Units/ml Oral Susp 5 ml UD PO SCH ×2 (16:23→21:30)
--- NOTE | 2016-11-02 18:06 | CP.PCM.HP ---
History of Present Illness - History of Present Illness History of Present Illness: 81yo male, pmhx of liver cirrhosis, ascites, CAD with stents, presents to the ED yesterday c/o abdominal distention with associated occasional shortness of breath. Patient reported the abdominal swelling has been present for a month but has worsened over the past 4 days, prompting his ER visit. Pt had a paracentesis done here approximately 1 month ago. patient seen and examined with attending this morning C/o mild SOB, but denies CP, dizziness, abd pain, N/V, diarrheas, or blood in stools afebrile Present on Admission - Present on Admission Any Indicators Present on Admission: No History of DVT/PE: No History of Uncontrolled Diabetes: No Urinary Catheter: No Decubitus Ulcer Present: No Review of Systems - Review of Systems All systems: reviewed and no additional remarkable complaints except (as per HPI ) Past Patient History - Infectious Disease Hx of Infectious Diseases: None - Past Medical History & Family History Past Medical History?: Yes - Past Social History Smoking Status: Never Smoked - CARDIAC Hx Cardiac Disorders: Yes Hx Cardia Arrhythmia: Yes Hx Hypercholesterolemia: Yes Hx Hypertension: Yes - PULMONARY Hx Respiratory Disorders: Yes Hx Pneumonia: Yes - NEUROLOGICAL Hx Neurological Disorder: No Hx Seizures: No - HEENT Hx HEENT Problems: No - RENAL Hx Chronic Kidney Disease: No - ENDOCRINE/METABOLIC Hx Endocrine Disorders: Yes Hx Diabetes Mellitus Type 2: Yes - HEMATOLOGICAL/ONCOLOGICAL Hx Blood Disorders: Yes Hx Anemia: Yes Hx Blood Transfusions: Yes Hx Blood Transfusion Reaction: No Hx Human Immunodeficiency Virus (HIV): No - INTEGUMENTARY Hx Dermatological Problems: No - MUSCULOSKELETAL/RHEUMATOLOGICAL Hx Musculoskeletal Disorders: Yes Hx Arthritis: Yes Hx Falls: No - GASTROINTESTINAL Hx Gastrointestinal Disorders: Yes Hx Esophageal Varices: Yes Other/Comment: Liver cirrhosis - GENITOURINARY/GYNECOLOGICAL Hx Sexually Transmitted Disorders: No - PSYCHIATRIC Hx Psychophysiologic Disorder: Yes Hx Depression: Yes Hx Substance Use: No - SURGICAL HISTORY Hx Surgeries: Yes Hx Coronary Stent: Yes (stentsx2 2011) - ANESTHESIA Hx Anesthesia: Yes Hx Anesthesia Reactions: No Hx Malignant Hyperthermia: No Meds Allergies/Adverse Reactions: Allergies Allergy/AdvReac Type Severity Reaction Status Date / Time lisinopril Allergy RASH Verified 02/17/16 11:51 Penicillins Allergy RASH Verified 02/17/16 11:51 Physical Exam - Constitutional Appears: No Acute Distress - ENT Exam ENT Exam: Mucous Membranes Moist - Respiratory Exam Respiratory Exam: Clear to Auscultation Bilateral, NORMAL BREATHING PATTERN - Cardiovascular Exam Cardiovascular Exam: REGULAR RHYTHM, +S1, +S2 - GI/Abdominal Exam GI & Abdominal Exam: Diminished Bowel Sounds, Distended, Soft. absent: Firm, Guarding, Rigid, Tenderness - Extremities Exam Extremities exam: Positive for: normal inspection. Negative for: calf tenderness, pedal edema - Neurological Exam Neurological exam: Alert, Oriented x3 Results - Vital Signs Recent Vital Signs: Last Vital Signs Temp 98.8 F 11/02/16 16:00 Pulse 71 11/02/16 16:00 Resp 14 11/02/16 16:00 BP 112/72 11/02/16 16:23 Pulse Ox 100 11/02/16 16:00 - Labs Result Diagrams: 11/02/16 06:05 11/02/16 06:05 Labs: Laboratory Results - last 24 hr 11/02/16 16:19 POC Glucose (mg/dL) 282 H Assessment & Plan - Assessment and Plan (Free Text) Assessment: 81 year old male with a past medical history of ascites from chronic liver disease, admitted with recurrent ascites for paracentesis procedure. Plan: Ascites secondary to Liver cirrhosis -IR consult appreciated for paracentesis PT/INR: 14.8/1.4 CBC: showed thrombocytopenia, but more than 100 Furosemide 40 mg IV BID spirinolactone 50 mg BID monitor for SBP consider GI consult if needed Diabetes Mellitus type 2 c/w home medications Hypertension controlled c/w home medications Azotemia BUN: 31 , Cr: 1.5/normal high levels GFR mildly decreased could be 2/2 decreased renal blood flow 2/2 decreased intravascular volume 2/2 fluid to third space f/u BUN after paracentesis c/w furosemide DVT prophylaxis SCDs for now plt 125 today - Date & Time Date: 11/02/16 Time: 08:20
[2016-11-02] MEDS: Insulin Detemir 100 Units/ml Inj SC SCH (21:33)
[2016-11-03 05:11] VITALS: O2SAT 98
[2016-11-03 06:25] LABS: HEMATOCRIT 41.5 % (35.0-51.0); MEAN CELL VOLUME 99.5 fl (80.0-94.0); MEAN CORPUSCULAR HEMOGLOBIN 32.7 pg (27.0-31.0); MEAN CORPUSCULAR HGB CONC 32.8 g/dL (33.0-37.0); WHITE BLOOD COUNT 7.8 K/uL (4.8-10.8)
[2016-11-03 06:42] LABS: ALB/GLOB RATIO 0.8 (1.0-2.1); BILIRUBIN,TOTAL 1.5 mg/dl (0.2-1.3); CALCIUM 9.5 mg/dL (8.4-10.2); POTASSIUM 4.7 MMOL/L (3.6-5.0); TOTAL PROTEIN 8.2 G/DL (6.3-8.2)
[2016-11-03 08:06] VITALS: BP 142/78; RESP 20; TEMP 97.9
[2016-11-03] MEDS: Insulin Lispro (humaLOG) 100 Units/ml Inj SC SCH ×2 (08:11→12:02)
[2016-11-03] MEDS: Simethicone 80 mg Chewtab PO SCH ×2 (08:13→12:03)
[2016-11-03] MEDS: Multivitamin Vitamin B Complex (Nephro-Vite) Tab PO SCH (08:14)
[2016-11-03] MEDS: Nystatin 100,000 Units/ml Oral Susp 5 ml UD PO SCH ×2 (08:14→12:03)
[2016-11-03] MEDS: Metoprolol Succinate 50 mg XL Tab PO SCH (08:14)
[2016-11-03] MEDS: Pantoprazole 40 mg EC Tab PO SCH (08:14)
[2016-11-03 10:12] VITALS: PULSE 71
--- NOTE | 2016-11-03 10:33 | US ---
Date of Procedure: 11/02/2016 PROCEDURE: Ultrasound-guided paracentesis, CPT 32392 Medications: 7 cc 1% Lidocaine HISTORY: Ascites, abdominal pain, cirrhosis TECHNIQUE: Following informed consent , the patient was placed supine on the stretcher and the site was marked. A limited abdominal ultrasound was performed that showed a large amount of intra-abdominal fluid. Procedural time out was called and the Pt's abdomen was marked and prepped and draped in the usual sterile fashion. Ultrasound-guided large volume paracentesis performed. A total of 8 liters of straw colored fluid was removed without complication. IMPRESSION: Ultrasound-guided large volume paracentesis.
--- NOTE | 2016-11-03 12:39 | CP.PCM.DIS ---
Provider - Provider Date of Admission: 11/02/16 16:00 Attending physician: Lars Sadler MD Consults: IR for paracentesis Time Spent in preparation of Discharge (in minutes): 30 Diagnosis - Discharge Diagnosis (1) Ascites Status: Acute Comment: Secondary to Liver cirrhosis. During admission was removed 8 L of straw colored fluid by us guided Paracentesis. patient tolerated procedure well. Afebrile and VS stable WNL during this admission. c/w current medical management. f/u with PMD in 1 week. 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 C/w current meds and f/u with PMD Hospital Course - Lab Results Lab Results: Most Recent Lab Values WBC 7.8 K/uL (4.8-10.8) 11/03/16 05:50 RBC 4.17 Mil/uL (4.40-5.90) L 11/03/16 05:50 Hgb 13.6 g/dL (12.0-18.0) 11/03/16 05:50 Hct 41.5 % (35.0-51.0) 11/03/16 05:50 MCV 99.5 fl (80.0-94.0) H 11/03/16 05:50 MCH 32.7 pg (27.0-31.0) H 11/03/16 05:50 MCHC 32.8 g/dL (33.0-37.0) L 11/03/16 05:50 RDW 15.0 % (11.5-14.5) H 11/03/16 05:50 Plt Count 161 K/uL (130-400) 11/03/16 05:50 MPV 8.7 fl (7.2-11.7) 11/02/16 06:05 Neut % (Auto) 66.2 % (50.0-75.0) 11/02/16 06:05 Lymph % (Auto) 15.3 % (20.0-40.0) L 11/02/16 06:05 [place] % (Auto) 16.4 % (0.0-10.0) H 11/02/16 06:05 Eos % (Auto) 1.6 % (0.0-4.0) 11/02/16 06:05 Baso % (Auto) 0.5 % (0.0-2.0) 11/02/16 06:05 Neut # 3.7 K/uL (1.8-7.0) 11/02/16 06:05 Lymph # 0.9 K/uL (1.0-4.3) L 11/02/16 06:05 [place] # 0.9 K/uL (0.0-0.8) H 11/02/16 06:05 Eos # 0.1 K/uL (0.0-0.7) 11/02/16 06:05 Baso # 0.0 K/uL (0.0-0.2) 11/02/16 06:05 Neutrophils % (Manual) 89 % (42-75) H 11/01/16 13:30 Lymphocytes % (Manual) 8 % (20-50) L 11/01/16 13:30 Monocytes % (Manual) 3 % (0-10) 11/01/16 13:30 Platelet Estimate Slightly decreased (NORMAL) L 11/01/16 13:30 Anisocytosis (manual) Slight 11/01/16 13:30 PT 14.8 Seconds (9.8-13.1) H 11/01/16 13:30 INR 1.4 (0.9-1.2) H 11/01/16 13:30 APTT 28.2 Seconds (25.6-37.1) 11/01/16 13:30 Sodium 138 mmol/l (132-148) 11/03/16 05:50 Potassium 4.7 MMOL/L (3.6-5.0) 11/03/16 05:50 Chloride 99 mmol/L (98-107) 11/03/16 05:50 Carbon Dioxide 31 mmol/L (22-30) H 11/03/16 05:50 Anion Gap 13 (10-20) 11/03/16 05:50 BUN 30 mg/dl (9-20) H 11/03/16 05:50 Creatinine 1.6 mg/dL (0.8-1.5) H 11/03/16 05:50 Est GFR ( Amer) 50 11/03/16 05:50 Est GFR (Non-Af Amer) 42 11/03/16 05:50 POC Glucose (mg/dL) 81 mg/dL (65-110) 11/03/16 05:23 Random Glucose 84 mg/dL (75-110) 11/03/16 05:50 Calcium 9.5 mg/dL (8.4-10.2) 11/03/16 05:50 Total Bilirubin 1.5 mg/dl (0.2-1.3) H 11/03/16 05:50 AST 62 U/L (17-59) H 11/03/16 05:50 ALT 62 U/L (21-72) 11/03/16 05:50 Alkaline Phosphatase 367 U/L (38-126) H 11/03/16 05:50 NT-Pro-B Natriuret Pep 1250 pg/ml (0-900) H 11/01/16 14:10 Total Protein 8.2 G/DL (6.3-8.2) 11/03/16 05:50 Albumin 3.6 g/dL (3.5-5.0) 11/03/16 05:50 Globulin 4.6 gm/dL (2.2-3.9) H 11/03/16 05:50 Albumin/Globulin Ratio 0.8 (1.0-2.1) L 11/03/16 05:50 Urine Color [place] (YELLOW) 11/01/16 17:03 Urine Clarity Cloudy (Clear) 11/01/16 17:03 Urine pH 6.0 (5.0-8.0) 11/01/16 17:03 Ur Specific [place] 1.011 (1.003-1.030) 11/01/16 17:03 Urine Protein Negative mg/dL (NEGATIVE) 11/01/16 17:03 Urine Glucose (UA) Neg mg/dL (Normal) 11/01/16 17:03 Urine Ketones Negative mg/dL (NEGATIVE) 11/01/16 17:03 Urine Blood Negative (NEGATIVE) 11/01/16 17:03 Urine Nitrate Negative (NEGATIVE) 11/01/16 17:03 Urine Bilirubin Negative (NEGATIVE) 11/01/16 17:03 Urine Urobilinogen 0.2-1.0 mg/dL (0.2-1.0) 11/01/16 17:03 Ur Leukocyte Esterase Neg [place]/uL (Negative) 11/01/16 17:03 Urine RBC (Auto) < 1 /hpf (0-3) 11/01/16 17:03 Urine Microscopic WBC 1 /hpf (0-5) 11/01/16 17:03 Ur Squamous Epith Cells < 1 /hpf (0-5) 11/01/16 17:03 Urine Bacteria Rare (<OCC) 11/01/16 17:03 - Date & Time of H&P Date of H&P: 11/02/16 Time of H&P: 09:10 Discharge Exam - Head Exam Head Exam: ATRAUMATIC, NORMAL INSPECTION, NORMOCEPHALIC - ENT Exam ENT Exam: Mucous Membranes Moist - Respiratory Exam Respiratory Exam: Clear to PA & Lateral, NORMAL BREATHING PATTERN - Cardiovascular Exam Cardiovascular Exam: REGULAR RHYTHM, +S1, +S2 - GI/Abdominal Exam GI & Abdominal Exam: Normal Bowel Sounds, Soft. absent: Firm, Guarding, Rigid, Tenderness - Extremities Exam Extremities exam: normal inspection Additional comments: no calf tenderness, no edema noted - Neurological Exam Neurological exam: Alert, Oriented x3 Discharge Plan - Discharge Medications Prescriptions: Nystatin [Nystatin Oral Susp] 5 ml PO QID #1 - Follow Up Plan Condition: GOOD Disposition: HOME/ ROUTINE Instructions: Abdominal Paracentesis (DC), Ascites (DC) Additional Instructions: f/u with PMD in 1 week
== END 2016-11-03 15:02 | disposition home health service (06) | DRG 433 ==
LOC: H.ER 12:20 → H.ERHOLD 14:30 → H.TEL 17:20 → OBSVTOIN 11-02 16:00
PROVIDERS: ADMIT Family Medicine; ATTEND Family Medicine
PROC: 0W9G3ZZ Drainage of Peritoneal Cavity, Percutaneous Approach (ICD-10-PCS; principal; 2016-11-02)
DX: K74.60 Unspecified cirrhosis of liver (principal); R18.8 Other ascites; E11.65 Type 2 diabetes mellitus with hyperglycemia; D64.9 Anemia, unspecified; E78.00 Pure hypercholesterolemia, unspecified; I10 Essential (primary) hypertension; I25.10 Atherosclerotic heart disease of native coronary artery without angina pectoris; Z79.82 Long term (current) use of aspirin; Z79.899 Other long term (current) drug therapy; Z87.01 Personal history of pneumonia (recurrent); Z95.5 Presence of coronary angioplasty implant and graft; F32.9 Major depressive disorder, single episode, unspecified; M19.90 Unspecified osteoarthritis, unspecified site; Z79.4 Long term (current) use of insulin; Z88.0 Allergy status to penicillin; Z88.8 Allergy status to other drugs, medicaments and biological substances

== ENCOUNTER 2016-11-29 11:37 | Observation (INO) | payer MEDICARE, OTHER ==
[2016-11-29 11:37] VITALS: BMI 24.7
--- NOTE | 2016-11-29 12:56 | ED PDOC ---
HPI: Abdomen Time Seen by Provider: 11/29/16 12:32 Chief Complaint (Nursing): Abdominal Pain Chief Complaint (Provider): abdominal swelling, pain, headache, cough History Per: Patient History/Exam Limitations: no limitations Current Symptoms Are (Timing): Still Present Location Of Pain/Discomfort: Diffuse (abdomen) Quality Of Discomfort: Aching Associated Symptoms: Nausea Exacerbating Factors: None Alleviating Factors: None Last Bowel Movement: Today Additional Complaint(s): 81yo male hx cirrhosis presents w family member who states his abdomen is enlarged and painful. Denies fever, bloody stools or vomiting. Patient also notes severe headache and mild cough ongoing for 2 days. Last paracentesis late october per chart. GI: Snady PMD: Nancie Corado Past Medical History Reviewed: Historical Data, Nursing Documentation, Vital Signs Vital Signs: Last Vital Signs Temp 98 F 11/29/16 11:54 Pulse 93 H 11/29/16 11:54 Resp 18 11/29/16 11:54 BP 119/81 11/29/16 11:54 Pulse Ox 100 11/29/16 11:54 - Medical History PMH: Anemia, Arthritis, CAD, Cardia Arrhythmia, Depression, Diabetes, HTN, Hypercholesterolemia, Pneumonia Denies: Hepatitis, HIV, Chronic Kidney Disease, Seizures, Sexually Transmitted Disease - Surgical History Surgical History: Coronary Stent (stentsx2 2011) - Family History Family History: States: Unknown Family Hx - Living Arrangements Living Arrangements: With Family - Social History Current smoker - smoking cessation education provided: No - Immunization History Hx Influenza Vaccination: No Hx Pneumococcal Vaccination: No - Home Medications Home Medications: Ambulatory Orders Medication Instructions Recorded Insulin Glargine, Recombina 10 units SC HS 01/23/16 [Lantus] Hydroxyzine HCl 25 mg PO Q8H PRN 07/23/16 Insulin Lispro [humALOG] 6 unit SC TID 07/23/16 Isosorbide Dinitrate 30 mg PO DAILY 07/23/16 Metoprolol Succinate [Toprol XL] 50 mg PO DAILY 07/23/16 Furosemide 40 mg PO DAILY #30 tablet 08/17/16 Spironolactone [Aldactone] 50 mg PO BID #60 tab 08/17/16 Docusate [Colace] 100 mg PO TID 10/04/16 Sertraline [Zoloft] 25 mg PO HS 10/04/16 predniSONE [predniSONE Tab] 5 mg PO DAILY 10/04/16 Albuterol Sulfate [Proair Hfa] 2 puff IH Q4H PRN 11/01/16 Aspirin [Adult Low Dose Aspirin EC] 81 mg PO MWF 11/01/16 Omeprazole 20 mg PO DAILY 11/01/16 Ondansetron [Zofran Tab] 4 mg PO Q8H 11/01/16 Simethicone [Mylicon Chew Tab] 80 mg PO TID 11/01/16 Vitamin B Complex [Super B-50 1 cap PO DAILY 11/01/16 Complex] Vitamin E [Vitamin E 400 Units Cap] 400 unit PO DAILY 11/01/16 Nystatin [Nystatin Oral Susp] 5 ml PO QID #1 11/03/16 - Allergies Allergies/Adverse Reactions: Allergies Allergy/AdvReac Type Severity Reaction Status Date / Time lisinopril Allergy RASH Verified 02/17/16 11:51 Penicillins Allergy RASH Verified 02/17/16 11:51 Review of Systems ROS Statement: Except As Marked, All Systems Reviewed And Found Negative Constitutional: Positive for: Weakness, Malaise. Negative for: Fever, Chills ENT: Negative for: Nose Discharge, Throat Pain Cardiovascular: Negative for: Chest Pain Respiratory: Positive for: Cough, Shortness of Breath (mild) Gastrointestinal: Positive for: Nausea, Abdominal Pain. Negative for: Vomiting , Melena, Hematochezia, Hematemesis, Rectal Pain Genitourinary Male: Negative for: Dysuria, Hematuria Musculoskeletal: Positive for: Back Pain Skin: Negative for: Rash, Lesions, Jaundice Neurological: Positive for: Headache, Dizziness. Negative for: Weakness, Numbness, Incoordination, Change in Speech Psych: Negative for: Anxiety Physical Exam - Reviewed Nursing Documentation Reviewed: Yes Vital Signs Reviewed: Yes - Physical Exam Appears: Positive for: Well, Non-toxic, No Acute Distress Head Exam: Positive for: ATRAUMATIC, NORMAL INSPECTION, NORMOCEPHALIC Skin: Positive for: Normal Color, Warm, DRY Eye Exam: Positive for: EOMI, Normal appearance, PERRL ENT: Positive for: Normal ENT Inspection Neck: Positive for: Normal, Painless ROM Cardiovascular/Chest: Positive for: Regular Rate, Rhythm Respiratory: Positive for: CNT, Normal Breath Sounds Gastrointestinal/Abdominal: Positive for: Tenderness, Distended, Asicites Back: Positive for: Normal Inspection Extremity: Positive for: Normal ROM Neurologic/Psych: Positive for: Alert, Oriented. Negative for: Motor/Sensory Deficits - ECG O2 Sat by Pulse Oximetry: 100 Disposition - Disposition
--- NOTE | 2016-11-29 13:27 | CT ---
PROCEDURE: CT HEAD WITHOUT CONTRAST. HISTORY: cirrhosis, coagulopathy, severe headache COMPARISON: None available. TECHNIQUE: Axial computed tomography images were obtained through the head/brain without intravenous contrast. Radiation dose: Total exam DLP = 979.08 mGy-cm. This CT exam was performed using one or more of the following dose reduction techniques: Automated exposure control, adjustment of the mA and/or kV according to patient size, and/or use of iterative reconstruction technique. FINDINGS: HEMORRHAGE: No intracranial hemorrhage. BRAIN: There are mild chronic microangiopathic changes. There is an old lacunar infarction in the right thalamus. There is no mass, mass effect or abnormal extra-axial fluid collection. There are coarse atherosclerotic calcifications in the cavernous carotid an vertebral arteries. VENTRICLES: There is mild age-related global parenchymal volume loss and proportionate enlargement of the ventricles and cortical sulci. CALVARIUM: The skull base and calvarium are normal. PARANASAL SINUSES: Predominantly clear. MASTOID AIR CELLS: Predominantly clear. OTHER FINDINGS: None. IMPRESSION: No acute intracranial abnormality. Mild chronic microangiopathic changes and mild age-related global parenchymal volume loss. Old lacunar infarction in the right thalamus.
--- NOTE | 2016-11-29 13:33 | RAD ---
HISTORY: COMPARISON: 11/01/2016 TECHNIQUE: Chest PA and lateral FINDINGS: LINES AND TUBES: None. LUNG AND PLEURA: There are low lung volumes. The lungs are clear. HEART AND MEDIASTINUM: The heart is not enlarged. Atherosclerotic aortic arch calcifications are present. The hilar and mediastinal contours are within normal limits. SKELETAL STRUCTURES: The bony structures are within normal limits for the patient's age. VISUALIZED UPPER ABDOMEN: Normal. OTHER FINDINGS: None. IMPRESSION: No acute findings.Low lung volumes may be related to poor inspiratory effort.
[2016-11-29 13:39] LABS: BASO % 0.2 % (0.0-2.0); EOS % 0.2 % (0.0-4.0); HEMATOCRIT 35.2 % (35.0-51.0); LYMPH # 0.7 K/uL (1.0-4.3); LYMPH % 9.1 % (20.0-40.0); MEAN CELL VOLUME 97.9 fl (80.0-94.0); MEAN CORPUSCULAR HEMOGLOBIN 33.1 pg (27.0-31.0); MEAN CORPUSCULAR HGB CONC 33.8 g/dL (33.0-37.0); MEAN PLATELET VOLUME 8.6 fl (7.2-11.7); MONO # 0.7 K/uL (0.0-0.8); MONO % 8.6 % (0.0-10.0); NEUT # 6.3 K/uL (1.8-7.0); NEUT % 81.9 % (50.0-75.0); NRBC % 0.1 % (0.0-0.0); PLATELET COUNT 157 K/uL (130-400); WHITE BLOOD COUNT 7.7 K/uL (4.8-10.8)
[2016-11-29 13:56] LABS: PARTIAL THROMBOPLASTIN TIME 31.2 Seconds (25.6-37.1)
[2016-11-29 13:57] LABS: ALB/GLOB RATIO 0.7 (1.0-2.1); BILIRUBIN,TOTAL 1.5 mg/dl (0.2-1.3); CALCIUM 9.5 mg/dL (8.4-10.2); POTASSIUM 4.5 MMOL/L (3.6-5.0)
[2016-11-29] MEDS ORDERED: Lidocaine 1% Inj (20ml) ONE (15:09)
[2016-11-29 16:00] LABS: NEUTROPHIL 84 % (42-75); TOTAL CELLS COUNTED 100
[2016-11-29 16:44] LABS: BODY FLUID TYPE PERITONEAL/ASCITES
[2016-11-29 18:24] LABS: BF GROSS APPEARANCE SL CLOUDY (CLEAR)
[2016-11-29 18:25] LABS: BODY FLUID TOTAL COUNT 100 (0-0)
[2016-11-29] MEDS ORDERED: Patient's Own Med (Albuterol Sulfate 2 PUFF) IH PRN (22:39)
[2016-11-29] MEDS ORDERED: Albuterol HFA 90 mcg/actuation (8 g) INH PRN (23:53)
[2016-11-30 06:56] LABS: HEMATOCRIT 36.8 % (35.0-51.0); MEAN CORPUSCULAR HEMOGLOBIN 32.6 pg (27.0-31.0); MEAN CORPUSCULAR HGB CONC 33.2 g/dL (33.0-37.0); RED CELL DISTRIBUTION WIDTH 13.9 % (11.5-14.5); WHITE BLOOD COUNT 5.5 K/uL (4.8-10.8)
[2016-11-30 07:15] LABS: BLOOD UREA NITROGEN 29 mg/dl (9-20); CALCIUM 8.9 mg/dL (8.4-10.2); CARBON DIOXIDE 25 mmol/L (22-30); CHLORIDE 103 mmol/L (98-107); GFR AFRICAN-AMERICAN > 60; GLUCOSE,RANDOM 138 mg/dL (75-110); SODIUM 141 mmol/l (132-148)
[2016-11-30 08:32] VITALS: BP 115/71; PULSE 82; RESP 20; TEMP 98.6; O2SAT 100
[2016-11-30] MEDS: Insulin Lispro (humaLOG) 100 Units/ml Inj SC SCH ×2 (08:35→12:59)
[2016-11-30] MEDS: Simethicone 80 mg Chewtab PO SCH ×2 (08:38→12:59)
[2016-11-30] MEDS ORDERED: Metoprolol Succinate 50 mg XL Tab PO SCH (09:00)
[2016-11-30] MEDS ORDERED: Patient's Own Med (Vitamin B Complex [Super B-50 Complex] 1 CAP) PO SCH (09:00)
[2016-11-30] MEDS ORDERED: Pantoprazole 40 mg EC Tab PO SCH (09:00)
--- NOTE | 2016-11-30 10:00 | PCM.SURG1 ---
Surgeon's Initial Post Op Note - Surgeon's Notes Surgeon: Levar Garza MD Expediter Clerk: None Pre-Operative Diagnosis: Ascites, cirrhosis Operative Findings: US showed a large amount of ascites. Post-Operative Diagnosis: Ascites, cirrhosis Operation Performed: US guided paracentesis. Specimen/Specimens Removed: 9.7 liters of straw colored fluid Estimated Blood Loss: EBL {In ML}: 0 Drains Used: No Drains Post-Op Condition: Good Date of Surgery/Procedure: 11/30/16 Time of Surgery/Procedure: 09:20
--- NOTE | 2016-11-30 11:58 | US ---
Date of Procedure: 11/30/2016 PROCEDURE: Ultrasound-guided paracentesis, CPT 15905 Medications: 7 cc 1% Lidocaine HISTORY: Ascites, abdominal pain, cirrhosis TECHNIQUE: Following informed consent , the patient was placed supine on the stretcher and the site was marked. A limited abdominal ultrasound was performed that showed a large amount of intra-abdominal fluid. Procedural time out was called and the Pt's abdomen was marked and prepped and draped in the usual sterile fashion. Ultrasound-guided large volume paracentesis performed. A total of 9.7 liters of straw colored fluid was removed without complication. IMPRESSION: Ultrasound-guided large volume paracentesis.
--- NOTE | 2016-11-30 13:52 | CP.PCM.PN ---
Subjective - Date & Time of Evaluation Date of Evaluation: 11/30/16 Time of Evaluation: 13:51 - Subjective Subjective: pt seen and examined at bedside this morning with attending. No acute events overnight. Pt underwent paracentesis and tolerated the procedure well. Pt reports still feeling distended but overall his symptoms are much improved. Tolerating PO intake w/o difficutly Denies any pain, fever/chills, cp/sob/davalos, n /v/d/c, numbness/tingling. Objective - Vital Signs/Intake and Output Vital Signs (last 24 hours): Temp Pulse Resp BP Pulse Ox 98.6 F 82 20 115/71 100 11/30/16 08:32 11/30/16 08:39 11/30/16 08:32 11/30/16 08:39 11/30/16 08:32 - Medications Medications: Current Medications Acetaminophen (Tylenol 325mg Tab) 325 mg PO Q4 PRN PRN Reason: Pain, moderate (4-7) Albuterol (Ventolin Hfa 90 Mcg/Actuation (8 G)) 2 puff INH RQ4 PRN PRN Reason: Shortness of Breath Aspirin (Ecotrin) 81 mg PO MWF [facility] Docusate Sodium (Colace) 100 mg PO TID [facility] Last Admin: 11/30/16 12:58 Dose: 100 mg Furosemide (Lasix) 40 mg PO BID [facility] Last Admin: 11/30/16 08:37 Dose: 40 mg Home Med (Vitamin B Complex [Super B-50 Complex]) 1 cap PO DAILY [facility] Hydroxyzine HCl (Atarax) 25 mg PO TID [facility] Last Admin: 11/30/16 12:58 Dose: 25 mg Insulin Detemir (Levemir) 10 units SC [facility] Insulin Human Lispro (Humalog) 6 units SC TID@0800,1200,1800 [facility] Last Admin: 11/30/16 12:59 Dose: 6 units Isosorbide Dinitrate (Isordil) 30 mg PO DAILY [facility] Last Admin: 11/30/16 13:01 Dose: 30 mg Metoprolol Succinate (Toprol Xl) 50 mg PO DAILY [facility] Last Admin: 11/30/16 08:39 Dose: 50 mg Pantoprazole Sodium (Protonix Ec Tab) 40 mg PO DAILY [facility] Last Admin: 11/30/16 08:38 Dose: 40 mg Prednisone (Prednisone Tab) 5 mg PO DAILY [facility] Last Admin: 11/30/16 08:38 Dose: 5 mg Sertraline HCl (Zoloft) 25 mg PO HS [facility] Simethicone (Mylicon Chew Tab) 80 mg PO TID [facility] Last Admin: 11/30/16 12:59 Dose: 80 mg Spironolactone (Aldactone) 25 mg PO BID [facility] Last Admin: 11/30/16 08:34 Dose: 25 mg Vitamin E (Vitamin E 400 Units Cap) 400 intlu PO DAILY [facility] Last Admin: 11/30/16 08:39 Dose: 400 intlu - Labs Labs: 11/30/16 06:25 11/30/16 06:25 PT 15.3 Seconds (9.8-13.1) H 11/29/16 13:31 INR 1.5 (0.9-1.2) H 11/29/16 13:31 APTT 31.2 Seconds (25.6-37.1) 11/29/16 13:31 - Constitutional Appears: Non-toxic, No Acute Distress - Head Exam Head Exam: ATRAUMATIC - Eye Exam Eye Exam: EOMI Pupil Exam: PERRL - ENT Exam ENT Exam: Mucous Membranes Moist - Respiratory Exam Respiratory Exam: Clear to Ausculation Bilateral, NORMAL BREATHING PATTERN. absent: Accessory Muscle Use, Decreased Breath Sounds, Rales, Rhonchi, Wheezes - Cardiovascular Exam Cardiovascular Exam: REGULAR RHYTHM, RRR, +S1, +S2. absent: Gallop, JVD, Rubs - GI/Abdominal Exam GI & Abdominal Exam: Distended, Soft, Normal Bowel Sounds. absent: Firm, Guarding, Rigid, Tenderness, Rebound - Neurological Exam Neurological Exam: Alert, Awake, CN II-XII Intact, Oriented x3 Assessment and Plan (1) Ascites Assessment & Plan: secondary to liver cirrhosis due to chronic etoh abuse underwent paracentesis, fluid removed, tolerated well stable for discharge Status: Acute
[2016-11-30] MEDS ORDERED: Insulin Detemir 100 Units/ml Inj SC SCH (22:00)
[2016-11-30] MEDS ORDERED: INSULIN GLARGINE RECOMBINA 10 UNIT SC SCH (22:00)
== END 2016-11-30 15:15 | disposition home or self-care (01) ==
LOC: H.ER 11:37 → H.ERHOLD 14:07 → H.MEDSURG1 18:56
PROVIDERS: ADMIT Family Medicine; ATTEND Family Medicine
DX: K70.31 Alcoholic cirrhosis of liver with ascites (principal); E11.9 Type 2 diabetes mellitus without complications; E78.00 Pure hypercholesterolemia, unspecified; I10 Essential (primary) hypertension; I25.10 Atherosclerotic heart disease of native coronary artery without angina pectoris; D64.9 Anemia, unspecified; F32.9 Major depressive disorder, single episode, unspecified; Z87.01 Personal history of pneumonia (recurrent); M19.90 Unspecified osteoarthritis, unspecified site; Z79.82 Long term (current) use of aspirin; Z79.899 Other long term (current) drug therapy; Z95.5 Presence of coronary angioplasty implant and graft
CPT/HCPCS: 36415; 49083; 70450; 71020; 80048; 80053; 82948; 83615; 85025; 85027; 85610; 85730; 89051; 99284; C1729; G0378

== ENCOUNTER 2017-01-01 12:04 | Emergency (ER) | payer MEDICARE ==
[2017-01-01 12:07] VITALS: BMI 23.0
[2017-01-01 12:08] VITALS: PULSE 82; RESP 16; TEMP 97.6; O2SAT 100
--- NOTE | 2017-01-01 12:44 | ED PDOC ---
Lower Extremity Pain/Injury Time Seen by Provider: 01/01/17 12:10 Chief Complaint (Nursing): Lower Extremity Problem/Injury Chief Complaint (Provider): Bilateral Lower Extremity Pain History Per: Patient History/Exam Limitations: no limitations Onset/Duration Of Symptoms: Days (x1 week) Current Symptoms Are (Timing): Still Present Pain Scale Rating Of: 5 Additional Complaint(s): Eleazar Sinclair, an 81 year old male, with a past medical history of cirrhosis presents to the ED complaining of bilateral lower extremity pain and swelling x1 week. The patient reports that nothing alleviates or exacerbates the pain and also states that he has not had similar symptoms in the past. Denies chest pain, shortness of breath, fevers and chills. PMD: Carlos Solis Past Medical History Reviewed: Historical Data, Nursing Documentation, Vital Signs Vital Signs: Last Vital Signs Temp 97.6 F 01/01/17 12:07 Pulse 82 01/01/17 12:07 Resp 16 01/01/17 12:07 BP 104/63 01/01/17 12:07 Pulse Ox 100 01/01/17 12:07 - Medical History PMH: Anemia, Arthritis, CAD, Cardia Arrhythmia, Depression, Diabetes, HTN, Hypercholesterolemia, Pneumonia Denies: Hepatitis, HIV, Chronic Kidney Disease, Seizures, Sexually Transmitted Disease - Surgical History Surgical History: Coronary Stent (stentsx2 2011) - Family History Family History: States: Unknown Family Hx - Living Arrangements Living Arrangements: With Family - Social History Current smoker - smoking cessation education provided: No Ex-Smoker (has not smoked in the last 12 months): No Alcohol: None Drugs: Denies - Immunization History Hx Influenza Vaccination: No Hx Pneumococcal Vaccination: No - Home Medications Home Medications: Ambulatory Orders Medication Instructions Recorded Insulin Glargine, Recombina 10 units SC HS 01/23/16 [Lantus] Hydroxyzine HCl 25 mg PO Q8H PRN 07/23/16 Insulin Lispro [humALOG] 6 unit SC TID 07/23/16 Isosorbide Dinitrate 30 mg PO DAILY 07/23/16 Metoprolol Succinate [Toprol XL] 50 mg PO DAILY 07/23/16 Docusate [Colace] 100 mg PO TID 10/04/16 Sertraline [Zoloft] 25 mg PO DAILY 10/04/16 predniSONE [predniSONE Tab] 5 mg PO DAILY 10/04/16 Albuterol Sulfate [Proair Hfa] 2 puff IH Q4H PRN 11/01/16 Aspirin [Adult Low Dose Aspirin EC] 81 mg PO MWF 11/01/16 Omeprazole 20 mg PO DAILY 11/01/16 Simethicone [Mylicon Chew Tab] 80 mg PO TID 11/01/16 Vitamin B Complex [Super B-50 1 cap PO DAILY 11/01/16 Complex] Vitamin E [Vitamin E 400 Units Cap] 400 unit PO DAILY 11/01/16 Furosemide 40 mg PO BID #30 tablet 11/30/16 Spironolactone [Aldactone] 25 mg PO BID #60 tab 11/30/16 metOLazone [Zaroxolyn] 2.5 mg PO DAILY #30 tab 11/30/16 Compr.stocking,Thigh,Reg,Large 1 each MC ONCE #1 each 01/01/17 [Compression Thigh Stocking] Erythromycin 0.5% [Ilytocin] 3.5 gm OP TID #1 tube 01/01/17 - Allergies Allergies/Adverse Reactions: Allergies Allergy/AdvReac Type Severity Reaction Status Date / Time lisinopril Allergy RASH Verified 01/01/17 12:11 Penicillins Allergy RASH Verified 01/01/17 12:11 Review of Systems ROS Statement: Except As Marked, All Systems Reviewed And Found Negative Constitutional: Negative for: Fever, Chills Cardiovascular: Negative for: Chest Pain Respiratory: Negative for: Shortness of Breath Musculoskeletal: Positive for: Other (b/l lower extremity pain and swelling.) Physical Exam - Physical Exam Appears: Positive for: No Acute Distress, Uncomfortable Skin: Positive for: Normal Color, Warm, Dry. Negative for: Rash Eye Exam: Positive for: Normal appearance, EOMI, PERRL. Negative for: Scleral icterus (sclera white) Neck: Positive for: Normal, Painless ROM, Supple Cardiovascular/Chest: Positive for: Regular Rate, Rhythm, Chest Non Tender. Negative for: Tachycardia Respiratory: Positive for: Normal Breath Sounds. Negative for: Rales, Rhonchi, Wheezing, Respiratory Distress Gastrointestinal/Abdominal: Positive for: Bowel Sounds, Soft, Distended ( abdomen mildly distended), Asicites (mild ascites). Negative for: Normal Exam, Tenderness, Mass, Guarding, Rebound Back: Positive for: Normal Inspection. Negative for: L CVA Tenderness, R CVA Tenderness Extremity: Positive for: Normal ROM, Pedal Edema (2+ bilateral edema up to ankles). Negative for: Calf Tenderness, Deformity Neurologic/Psych: Positive for: Alert, Oriented - Laboratory Results Result Diagrams: 01/01/17 13:45 01/01/17 13:45 - ECG O2 Sat by Pulse Oximetry: 100 (RA) Pulse Ox Interpretation: Normal Medical Decision Making Medical Decision Makin Initial Impression 81 y/o male presenting with b/l lower extremity swelling Initial Plan: * EKG * Ammonia * B-type natriuretic * CMP * Lipase * Troponin I * CBC * Partial thromboplastin * Prothrombin Time * CXR r/o Pneumonia * US r/o DVT * Urinalysis * Reevaluation EKG performed: * Normal sinus at 79 bpm * Left axis deviation * No ST changes * No T wave inversions * no change when compared to 10/04/2016 1458 Doppler US negative, patient was advised to wear compression and to follow up with primary care provider. Upon provider reevaluation patient is feeling better, is medically stable, and requires no further treatment in the ED at this time. Patient will be discharged home. Counseling was provided and all questions were answered regarding diagnosis and need for follow up with primary care provider. There is agreement to discharge plan. Return if symptoms persist or worsen. Scribe Attestation Documented by Teresa Miller acting as a scribe for Luis Downs MD. Provider Attestation All medical record entries made by the Scribe were at my direction and personally dictated by me. I have reviewed the chart and agree that the record accurately reflects my personal performance of the history, physical exam, medical decision making, and the department course for this patient. I have also personally directed, reviewed, and agree with the discharge instructions and disposition. Disposition - Clinical Impression Clinical Impression: Edema of both lower legs due to peripheral venous insufficiency - Patient ED Disposition Is Patient to be Admitted: No Counseled Patient/Family Regarding: Studies Performed, Diagnosis, Need For Followup - Disposition Referrals: Carlos Corado MD [Family Provider] - Disposition: Routine/Home Disposition Time: 14:58 Condition: GOOD Prescriptions: Compr.stocking,Thigh,Reg,Large [Compression Thigh Stocking] 1 each MC ONCE #1 each Erythromycin 0.5% [Ilytocin] 3.5 gm OP TID #1 tube Instructions: Leg Edema (ED) Forms: [facility] ([place]) Print Language: AMERICAN - POA Present On Arrival: None
--- NOTE | 2017-01-01 13:03 | RAD ---
PROCEDURE: CHEST RADIOGRAPH, 1 VIEW HISTORY: leg swelling ascites COMPARISON: 11/29/2016. FINDINGS: LUNGS: The lungs are well inflated and clear. PLEURA: No pneumothorax or pleural fluid seen. CARDIOVASCULAR: The heart is normal in size. Atherosclerotic aortic arch calcifications are present. OSSEOUS STRUCTURES: No significant abnormalities. VISUALIZED UPPER ABDOMEN: Normal. OTHER FINDINGS: None. IMPRESSION: No active pulmonary disease.
[2017-01-01 13:54] LABS: BASO % 0.4 % (0.0-2.0); EOS % 0.5 % (0.0-4.0); HEMATOCRIT 39.5 % (35.0-51.0); LYMPH # 1.3 K/uL (1.0-4.3); LYMPH % 14.5 % (20.0-40.0); MEAN CELL VOLUME 93.3 fl (80.0-94.0); MEAN CORPUSCULAR HEMOGLOBIN 31.6 pg (27.0-31.0); MEAN CORPUSCULAR HGB CONC 33.9 g/dL (33.0-37.0); MEAN PLATELET VOLUME 8.7 fl (7.2-11.7); MONO # 1.5 K/uL (0.0-0.8); MONO % 16.8 % (0.0-10.0); NEUT # 5.9 K/uL (1.8-7.0); NEUT % 67.8 % (50.0-75.0); NRBC % 0.2 % (0.0-0.0); RED CELL DISTRIBUTION WIDTH 13.5 % (11.5-14.5); WHITE BLOOD COUNT 8.7 K/uL (4.8-10.8)
[2017-01-01 14:07] LABS: ALB/GLOB RATIO 0.7 (1.0-2.1); BILIRUBIN,TOTAL 2.8 mg/dl (0.2-1.3); CALCIUM 8.8 mg/dL (8.4-10.2); MAGNESIUM 1.6 MG/DL (1.6-2.3); TOTAL PROTEIN 9.2 G/DL (6.3-8.2)
[2017-01-01 14:08] LABS: POTASSIUM 4.8 MMOL/L (3.6-5.0)
[2017-01-01 14:18] LABS: TROPONIN I 0.059 ng/mL (0.00-0.120)
[2017-01-01 14:24] LABS: PARTIAL THROMBOPLASTIN TIME 32.9 Seconds (25.6-37.1)
--- NOTE | 2017-01-01 14:49 | US ---
PROCEDURE: Bilateral lower extremity venous duplex Doppler. HISTORY: Swelling COMPARISON: None available. TECHNIQUE: Bilateral common femoral, superficial femoral, popliteal and posterior tibial veins were evaluated. Flow was assessed with color Doppler, compressibility, assessment of phasic flow and augmentation response. FINDINGS: COMMON FEMORAL VEIN: Right CFV: Unremarkable. Left CFV: Unremarkable. SUPERFICIAL FEMORAL VEIN: Right SFV: Unremarkable. Left SFV: Unremarkable. POPLITEAL VEIN: Right Popliteal: Unremarkable. Left Popliteal: Unremarkable. POSTERIOR TIBIAL VEIN: Right PTV: Unremarkable. Left PTV: Unremarkable. OTHER FINDINGS: None. IMPRESSION: No evidence of deep venous thrombosis.
[2017-01-01 15:25] VITALS: BP 149/79
[2017-01-01 16:18] LABS: RBC URINE 2 /hpf (0-3); URINE BACTERIA FEW (<OCC); URINE BILIRUBIN NEGATIVE (NEGATIVE); URINE BLOOD NEGATIVE (NEGATIVE); URINE COLOR YELLOW (YELLOW); URINE GLUCOSE (UA) NEG (Normal); URINE KETONE NEGATIVE (NEGATIVE); URINE LEUKOCYTE ESTERASE MOD Leu/uL (Negative); URINE PROTEIN NEGATIVE (NEGATIVE); WBC URINE 15 /hpf (0-5)
--- NOTE | 2017-01-02 16:42 | CARD ---
APPROVED REPORT EKG Measurement Heart Feaf71OHOD [place] 160P52 [id number] <Conclusion> Normal sinus rhythm LBBB type intraventricular block Abnormal ECG
== END 2017-01-01 21:30 | disposition home or self-care (01) ==
LOC: H.ER 12:04
DX: I87.2 Venous insufficiency (chronic) (peripheral) (principal); E11.9 Type 2 diabetes mellitus without complications; E78.00 Pure hypercholesterolemia, unspecified; F32.9 Major depressive disorder, single episode, unspecified; I10 Essential (primary) hypertension; I25.10 Atherosclerotic heart disease of native coronary artery without angina pectoris; Z79.4 Long term (current) use of insulin; Z79.82 Long term (current) use of aspirin; Z88.0 Allergy status to penicillin; Z95.5 Presence of coronary angioplasty implant and graft

== ENCOUNTER 2017-01-23 06:54 | Inpatient (IN) | payer MEDICARE, OTHER ==
[2017-01-23] MEDS ORDERED: Sodium Chloride 0.9% 500 ML IV STA (07:31)
[2017-01-23 07:52] LABS: BASO % 0.3 % (0.0-2.0); EOS % 0.4 % (0.0-4.0); HEMATOCRIT 36.7 % (35.0-51.0); LYMPH # 0.8 K/uL (1.0-4.3); LYMPH % 10.3 % (20.0-40.0); MEAN CELL VOLUME 94.8 fl (80.0-94.0); MEAN CORPUSCULAR HEMOGLOBIN 31.4 pg (27.0-31.0); MEAN CORPUSCULAR HGB CONC 33.1 g/dL (33.0-37.0); MONO # 1.1 K/uL (0.0-0.8); MONO % 14.3 % (0.0-10.0); NEUT # 5.7 K/uL (1.8-7.0); NEUT % 74.7 % (50.0-75.0); NRBC % 0.1 % (0.0-0.0); RED CELL DISTRIBUTION WIDTH 13.9 % (11.5-14.5); WHITE BLOOD COUNT 7.6 K/uL (4.8-10.8)
[2017-01-23 08:03] LABS: POTASSIUM 4.1 MMOL/L (3.6-5.0)
[2017-01-23 08:04] LABS: ALB/GLOB RATIO 0.6 (1.0-2.1); ALKALINE PHOSPHATASE 347 U/L (38-126); ALT/SGPT 38 U/L (21-72); AST/SGOT 50 U/L (17-59); BILIRUBIN,TOTAL 1.7 mg/dl (0.2-1.3); BLOOD UREA NITROGEN 78 mg/dl (9-20); CALCIUM 9.5 mg/dL (8.4-10.2); CARBON DIOXIDE 26 mmol/L (22-30); CHLORIDE 97 mmol/L (98-107); GFR AFRICAN-AMERICAN 41; GLUCOSE,RANDOM 310 mg/dL (75-110); LIPASE 72 U/L (23-300); SODIUM 138 mmol/l (132-148); TOTAL PROTEIN 9.6 G/DL (6.3-8.2)
[2017-01-23] MEDS ORDERED: Insulin Regular 100 units/ml IVP ONE (08:29)
[2017-01-23 08:46] LABS: RBC URINE 4 /hpf (0-3); URINE BILIRUBIN NEGATIVE (NEGATIVE); URINE BLOOD NEGATIVE (NEGATIVE); URINE COLOR YELLOW (YELLOW); URINE GLUCOSE (UA) NEG (Normal); URINE KETONE NEGATIVE (NEGATIVE); URINE LEUKOCYTE ESTERASE LARGE Leu/uL (Negative); URINE PROTEIN NEGATIVE (NEGATIVE); WBC URINE 76 /hpf (0-5)
--- NOTE | 2017-01-23 10:17 | RAD ---
HISTORY: cough COMPARISON: Frontal chest radiograph 01/01/2017. FINDINGS: LUNGS: No active pulmonary disease. PLEURA: No significant pleural effusion identified, no pneumothorax apparent. CARDIOVASCULAR: Prominent cardiac silhouette again seen. Patient rotated toward the left central right hilar vascular nature somewhat. Mitral annular calcification again appreciated. OSSEOUS STRUCTURES: No significant abnormalities. VISUALIZED UPPER ABDOMEN: Normal. OTHER FINDINGS: None. IMPRESSION: No interval acute cardiopulmonary disease appreciable. Stable prominent cardiac silhouette.
[2017-01-23] MEDS ORDERED: Ciprofloxacin 400mg/200ml D5W 400 MG/200 ML BAG IVPB STA (10:48)
[2017-01-23] MEDS ORDERED: Ciprofloxacin 400mg/200ml D5W 400 MG/200 ML BAG IVPB ONE (11:00)
--- NOTE | 2017-01-23 11:14 | ED PDOC ---
HPI: General Adult Time Seen by Provider: 01/23/17 07:07 Chief Complaint (Nursing): Flu-like Symptoms Chief Complaint (Provider): Weakness History Per: Patient, Family () History/Exam Limitations: no limitations Onset/Duration Of Symptoms: Days (x3) Current Symptoms Are (Timing): Still Present Additional Complaint(s): Eleazar Sinclair is an 81 year old male with a history of cirrhosis, anemia, depression, diabetes, pneumonia, and cardiac disease that is accompanied by his and presents to the ED with a chief complaint of generalized weakness and difficulty ambulating due to body aches and back pain that he has been experiencing for the past three days. Patient was started on oral antibiotics for a UTI. He denies any vomiting or diarrhea, and his reports she thinks he may have a fever. Patient additionally has a history of ascites for which he has requested paracentesis for in the past, but he currently denies abdominal pain. Past Medical History Reviewed: Historical Data, Nursing Documentation, Vital Signs Vital Signs: Last Vital Signs Temp 97.6 F 01/23/17 07:13 Pulse 75 01/23/17 07:13 Resp 18 01/23/17 07:13 BP 111/57 L 01/23/17 07:13 Pulse Ox 100 01/23/17 11:25 - Medical History PMH: Anemia, Arthritis, CAD, Cardia Arrhythmia, Depression, Diabetes, HTN, Hypercholesterolemia, Pneumonia Denies: Hepatitis, HIV, Chronic Kidney Disease, Seizures, Sexually Transmitted Disease Other PMH: history of ascites, cirrhosis - Surgical History Surgical History: Coronary Stent (stentsx2 2011) - Family History Family History: States: Unknown Family Hx - Immunization History Hx Influenza Vaccination: No Hx Pneumococcal Vaccination: No - Home Medications Home Medications: Ambulatory Orders Medication Instructions Recorded Insulin Glargine, Recombina 10 units SC HS 01/23/16 [Lantus] Hydroxyzine HCl 25 mg PO Q8H PRN 07/23/16 Insulin Lispro [humALOG] 6 unit SC TID 07/23/16 Isosorbide Dinitrate 30 mg PO DAILY 07/23/16 Metoprolol Succinate [Toprol XL] 50 mg PO DAILY 07/23/16 Docusate [Colace] 100 mg PO TID 10/04/16 Sertraline [Zoloft] 25 mg PO DAILY 10/04/16 predniSONE [predniSONE Tab] 5 mg PO DAILY 10/04/16 Albuterol Sulfate [Proair Hfa] 2 puff IH Q4H PRN 11/01/16 Aspirin [Adult Low Dose Aspirin EC] 81 mg PO MWF 11/01/16 Omeprazole 20 mg PO DAILY 11/01/16 Simethicone [Mylicon Chew Tab] 80 mg PO TID 11/01/16 Vitamin B Complex [Super B-50 1 cap PO DAILY 11/01/16 Complex] Vitamin E [Vitamin E 400 Units Cap] 400 unit PO DAILY 11/01/16 Furosemide 40 mg PO BID #30 tablet 11/30/16 Spironolactone [Aldactone] 25 mg PO BID #60 tab 11/30/16 metOLazone [Zaroxolyn] 2.5 mg PO DAILY #30 tab 11/30/16 Compr.stocking,Thigh,Reg,Large 1 each MC ONCE #1 each 01/01/17 [Compression Thigh Stocking] Erythromycin 0.5% [Ilytocin] 3.5 gm OP TID #1 tube 01/01/17 Ciprofloxacin [Cipro] 1 tab PO BID 01/23/17 - Allergies Allergies/Adverse Reactions: Allergies Allergy/AdvReac Type Severity Reaction Status Date / Time lisinopril Allergy RASH Verified 01/23/17 07:13 Penicillins Allergy RASH Verified 01/23/17 07:13 Review of Systems Constitutional: Positive for: Chills, Weakness, Malaise Musculoskeletal: Positive for: Back Pain Physical Exam - Reviewed Nursing Documentation Reviewed: Yes Vital Signs Reviewed: Yes - Physical Exam Appears: Positive for: Non-toxic, No Acute Distress (Patient is elderly and generally weak-appearing) Head Exam: Positive for: ATRAUMATIC, NORMOCEPHALIC Skin: Positive for: Normal Color, Warm, Rash (Patient has an erythematous nonpalpable rash to the dorsum of the right foot. ) Eye Exam: Positive for: EOMI, Normal appearance, PERRL Cardiovascular/Chest: Positive for: Regular Rate, Rhythm. Negative for: Murmur Respiratory: Positive for: Normal Breath Sounds. Negative for: Wheezing Gastrointestinal/Abdominal: Positive for: Soft, Distended. Negative for: Normal Exam, Tenderness Back: Positive for: Normal Inspection Extremity: Positive for: Normal ROM, Other (Patient has a painful nodule to left ring finger. ) Neurologic/Psych: Positive for: Alert, Oriented. Negative for: Motor/Sensory Deficits (Patient has 4/5 strength in all extremities) - Laboratory Results Result Diagrams: 01/23/17 07:45 01/23/17 07:45 - ECG O2 Sat by Pulse Oximetry: 100 (RA) Pulse Ox Interpretation: Normal Medical Decision Making Medical Decision Making: Impression: Metabolic vs. Infectious vs. Cardiac vs. Neurological Phenomenon Plan: * Chest X-Ray * EKG * PTT * PT * Accucheck * Insulin 4 unit * Cipro 400 mg iv * NaCl 500 mLs at 500 mLs/hr * Reevaluation Patient was found to be hyperglycemic with evidence of ongoing UTI. Patient's kidney function was also elevated from prior, therefore IV fluids were initiated and blood and urine cultures were obtained. Chest X-Ray FINDINGS: LUNGS: No active pulmonary disease. PLEURA: No significant pleural effusion identified, no pneumothorax apparent. CARDIOVASCULAR: Prominent cardiac silhouette again seen. Patient rotated toward the left central right hilar vascular nature somewhat. Mitral annular calcification again appreciated. OSSEOUS STRUCTURES: No significant abnormalities. VISUALIZED UPPER ABDOMEN: Normal. OTHER FINDINGS: None. IMPRESSION: No interval acute cardiopulmonary disease appreciable. Stable prominent cardiac silhouette. 11:03 Given failure of outpatient therapy, patient will be admitted to Dr. Sadler for further care. Scribe Attestation: Documented by Vicky Maldonado, acting as a scribe for Tae Turcios III, DO. Provider Scribe Attestation: All medical record entries made by the Scribe were at my direction and personally dictated by me. I have reviewed the chart and agree that the record accurately reflects my personal performance of the history, physical exam, medical decision making, and the department course for this patient. I have also personally directed, reviewed, and agree with the discharge instructions and disposition. Disposition - Clinical Impression Clinical Impression: UTI (urinary tract infection), Acute kidney injury, Dehydration, Weakness - Patient ED Disposition Is Patient to be Admitted: Yes - Disposition Disposition Time: 11:03 Condition: FAIR Patient Signed Over To: Lars Sadler
[2017-01-23] MEDS ORDERED: Sodium Chloride 0.9% 1,000 ML IV STA (11:16)
--- NOTE | 2017-01-23 13:01 | CP.PCM.HP ---
History of Present Illness - History of Present Illness History of Present Illness: This is an 81 y/o female admitted for generalized fatigue and malaise. Has hx of cirrhosis and anasarca and had few hospitalizations for paracentesis. Past Patient History - Infectious Disease Hx of Infectious Diseases: None - Past Medical History & Family History Past Medical History?: No - Past Social History Smoking Status: Never Smoked - CARDIAC Hx Cardia Arrhythmia: Yes Hx Hypercholesterolemia: Yes Hx Hypertension: Yes - PULMONARY Hx Pneumonia: Yes - NEUROLOGICAL Hx Seizures: No - HEENT Hx HEENT Problems: No - RENAL Hx Chronic Kidney Disease: No - ENDOCRINE/METABOLIC Hx Endocrine Disorders: Yes Hx Diabetes Mellitus Type 2: Yes - HEMATOLOGICAL/ONCOLOGICAL Hx Anemia: Yes Hx Human Immunodeficiency Virus (HIV): No - INTEGUMENTARY Hx Dermatological Problems: No - MUSCULOSKELETAL/RHEUMATOLOGICAL Hx Arthritis: Yes - GASTROINTESTINAL Hx Gastrointestinal Disorders: Yes Hx Esophageal Varices: Yes Other/Comment: Liver cirrhosis - GENITOURINARY/GYNECOLOGICAL Hx Sexually Transmitted Disorders: No - PSYCHIATRIC Hx Depression: Yes - SURGICAL HISTORY Hx Coronary Stent: Yes (stentsx2 2011) - ANESTHESIA Hx Anesthesia: Yes Hx Anesthesia Reactions: No Hx Malignant Hyperthermia: No Meds Allergies/Adverse Reactions: Allergies Allergy/AdvReac Type Severity Reaction Status Date / Time lisinopril Allergy RASH Verified 01/23/17 07:13 Penicillins Allergy RASH Verified 01/23/17 07:13 Results - Vital Signs Recent Vital Signs: Last Vital Signs Temp 98.1 F 01/23/17 12:22 Pulse 70 01/23/17 12:22 Resp 19 01/23/17 12:22 BP 130/68 01/23/17 12:22 Pulse Ox 100 01/23/17 12:22 - Labs Result Diagrams: 01/23/17 07:45 01/23/17 07:45 Labs: Laboratory Results - last 24 hr 01/23/17 01/23/17 01/23/17 07:45 07:45 07:45 WBC 7.6 RBC 3.87 L Hgb 12.1 Hct 36.7 MCV 94.8 H MCH 31.4 H MCHC 33.1 RDW 13.9 Plt Count 157 MPV 9.0 Neut % (Auto) 74.7 Lymph % (Auto) 10.3 L [place] % (Auto) 14.3 H Eos % (Auto) 0.4 Baso % (Auto) 0.3 Neut # 5.7 Lymph # 0.8 L [place] # 1.1 H Eos # 0.0 Baso # 0.0 Sodium 138 Potassium 4.1 Chloride 97 L Carbon Dioxide 26 Anion Gap 19 BUN 78 H Creatinine 1.9 H Est GFR ( Amer) 41 Est GFR (Non-Af Amer) 34 Random Glucose 310 H Calcium 9.5 Total Bilirubin 1.7 H AST 50 ALT 38 Alkaline Phosphatase 347 H Total Creatine Kinase < 20 L Troponin I 0.0690 Total Protein 9.6 H Albumin 3.7 Globulin 5.8 H Albumin/Globulin Ratio 0.6 L Lipase 72 Urine Color Urine Clarity Urine pH Ur Specific [place] Urine Protein Urine Glucose (UA) Urine Ketones Urine Blood Urine Nitrate Urine Bilirubin Urine Urobilinogen Ur Leukocyte Esterase Urine RBC (Auto) Urine Microscopic WBC Ur Squamous Epith Cells Amorphous Sediment Hyaline Casts Influenza Typ A,B (EIA) Negative for flu a/b 01/23/17 08:29 WBC RBC Hgb Hct MCV MCH MCHC RDW Plt Count MPV Neut % (Auto) Lymph % (Auto) [place] % (Auto) Eos % (Auto) Baso % (Auto) Neut # Lymph # [place] # Eos # Baso # Sodium Potassium Chloride Carbon Dioxide Anion Gap BUN Creatinine Est GFR ( Amer) Est GFR (Non-Af Amer) Random Glucose Calcium Total Bilirubin AST ALT Alkaline Phosphatase Total Creatine Kinase Troponin I Total Protein Albumin Globulin Albumin/Globulin Ratio Lipase Urine Color Yellow Urine Clarity Slighty-cloudy Urine pH 5.0 Ur Specific [place] 1.016 Urine Protein Negative Urine Glucose (UA) Neg Urine Ketones Negative Urine Blood Negative Urine Nitrate Negative Urine Bilirubin Negative Urine Urobilinogen 4.0 Ur Leukocyte Esterase Large Urine RBC (Auto) 4 H Urine Microscopic WBC 76 H Ur Squamous Epith Cells 1 Amorphous Sediment Rare H Hyaline Casts 3-5 H Influenza Typ A,B (EIA)
[2017-01-23] MEDS: Metoprolol Succinate 25 mg XL Tab PO SCH (15:46)
[2017-01-23] MEDS: metOLazone 2.5 MG TAB PO SCH (15:47)
[2017-01-23] MEDS: Insulin Lispro (humaLOG) 100 Units/ml Inj SC SCH (17:51)
[2017-01-23] MEDS ORDERED: Influenza Vaccine 18yr & older 0.5 ML/45 MCG SYR IM ONE (21:00)
[2017-01-23 23:12] LABS: PARTIAL THROMBOPLASTIN TIME 30.3 Seconds (25.6-37.1)
[2017-01-24] MEDS ORDERED: metOLazone 2.5 MG TAB PO SCH (09:00)
[2017-01-24] MEDS: metOLazone 2.5 MG TAB PO SCH (09:37)
[2017-01-24] MEDS: Insulin Lispro (humaLOG) 100 Units/ml Inj SC SCH ×3 (09:37→16:15)
[2017-01-24] MEDS: Metoprolol Succinate 25 mg XL Tab PO SCH (09:37)
--- NOTE | 2017-01-24 12:25 | CARD ---
APPROVED REPORT EKG Measurement Heart [id number] MI 168P63 [id number] <Conclusion> Sinus rhythm with occasional premature ventricular complexes Left bundle branch block Abnormal ECG
[2017-01-24] MEDS ORDERED: Sodium Chloride 0.9% 1,000 ML IV SCH (15:30)
[2017-01-24 15:54] LABS: CALCIUM 9.6 mg/dL (8.4-10.2); POTASSIUM 3.7 MMOL/L (3.6-5.0)
[2017-01-24] MEDS: Dextrose 5%/0.45% NS 1,000 ML IV SCH (16:14)
[2017-01-24] MEDS: Ciprofloxacin 200mg/100ml D5W 100 ML IVPB SCH (21:26)
[2017-01-24] MEDS: Oxycodone/Acetaminophen 5/325 mg Tab PO PRN (23:23)
[2017-01-25 06:18] LABS: HEMATOCRIT 37.4 % (35.0-51.0); MEAN CELL VOLUME 95.9 fl (80.0-94.0); MEAN CORPUSCULAR HEMOGLOBIN 31.8 pg (27.0-31.0); MEAN CORPUSCULAR HGB CONC 33.2 g/dL (33.0-37.0); RED CELL DISTRIBUTION WIDTH 14.1 % (11.5-14.5)
[2017-01-25 06:36] LABS: POTASSIUM 3.7 MMOL/L (3.6-5.0)
[2017-01-25] MEDS: Ciprofloxacin 200mg/100ml D5W 100 ML IVPB SCH ×2 (08:32→21:54)
[2017-01-25] MEDS: Insulin Lispro (humaLOG) 100 Units/ml Inj SC SCH ×3 (08:32→17:10)
[2017-01-25] MEDS: Metoprolol Succinate 25 mg XL Tab PO SCH (08:33)
[2017-01-25] MEDS: Dextrose 5%/0.45% NS 1,000 ML IV SCH (12:04)
--- NOTE | 2017-01-25 12:28 | CP.PCM.PN ---
Subjective - Date & Time of Evaluation Date of Evaluation: 01/24/17 Time of Evaluation: 10:15 - Subjective Subjective: Patient feels very weak., Has no chest pain or SOB Noted elevated BUN. On iv hydration Objective - Vital Signs/Intake and Output Vital Signs (last 24 hours): Temp Pulse Resp BP Pulse Ox 98.0 F 85 18 144/75 98 01/25/17 12:00 01/25/17 12:00 01/25/17 12:00 01/25/17 12:00 01/25/17 12:00 - Medications Medications: Current Medications Clotrimazole (Lotrimin 1% Cream) 1 applic TOP BID [facility] Last Admin: 01/25/17 09:05 Dose: 1 applic Ciprofloxacin (Cipro 200mg/100ml D5w) 100 mls @ 100 mls/hr IVPB Q12 [facility] Last Admin: 01/25/17 08:32 Dose: 100 mls/hr Dextrose/Sodium Chloride (Dextrose 5%/0.45% Ns 1000 Ml) 1,000 mls @ 60 mls/hr IV .[id number] [facility] Stop: 01/25/17 16:11 Last Admin: 01/25/17 12:04 Dose: 60 mls/hr Insulin Human Lispro (Humalog) 7 units SC TIDWM [facility] Last Admin: 01/25/17 12:04 Dose: 7 units Metoprolol Succinate (Toprol Xl) 25 mg PO DAILY [facility] Last Admin: 01/25/17 08:33 Dose: 25 mg Oxycodone/Acetaminophen (Percocet 5/325 Mg Tab) 1 tab PO Q6 PRN PRN Reason: Pain, moderate (4-7) Stop: 01/27/17 23:01 Last Admin: 01/24/17 23:23 Dose: 1 tab - Labs Labs: 01/25/17 05:00 01/25/17 05:00 PT 18.1 Seconds (9.8-13.1) H 01/23/17 22:35 INR 1.6 (0.9-1.2) H 01/23/17 22:35 APTT 30.3 Seconds (25.6-37.1) 01/23/17 22:35
--- NOTE | 2017-01-25 12:30 | CP.PCM.PN ---
Subjective - Date & Time of Evaluation Date of Evaluation: 01/25/17 Time of Evaluation: 12:29 - Subjective Subjective: Patient feels a lot better after hydration Able to eat. Has more energy. Has no chest pain or SOB. BUN is now 60 Cr is 1.5 Objective - Vital Signs/Intake and Output Vital Signs (last 24 hours): Temp Pulse Resp BP Pulse Ox 98.0 F 85 18 144/75 98 01/25/17 12:00 01/25/17 12:00 01/25/17 12:00 01/25/17 12:00 01/25/17 12:00 - Medications Medications: Current Medications Clotrimazole (Lotrimin 1% Cream) 1 applic TOP BID [facility] Last Admin: 01/25/17 09:05 Dose: 1 applic Ciprofloxacin (Cipro 200mg/100ml D5w) 100 mls @ 100 mls/hr IVPB Q12 [facility] Last Admin: 01/25/17 08:32 Dose: 100 mls/hr Dextrose/Sodium Chloride (Dextrose 5%/0.45% Ns 1000 Ml) 1,000 mls @ 60 mls/hr IV .[id number] [facility] Stop: 01/25/17 16:11 Last Admin: 01/25/17 12:04 Dose: 60 mls/hr Insulin Human Lispro (Humalog) 7 units SC TIDWM [facility] Last Admin: 01/25/17 12:04 Dose: 7 units Metoprolol Succinate (Toprol Xl) 25 mg PO DAILY [facility] Last Admin: 01/25/17 08:33 Dose: 25 mg Oxycodone/Acetaminophen (Percocet 5/325 Mg Tab) 1 tab PO Q6 PRN PRN Reason: Pain, moderate (4-7) Stop: 01/27/17 23:01 Last Admin: 01/24/17 23:23 Dose: 1 tab - Labs Labs: 01/25/17 05:00 01/25/17 05:00 PT 18.1 Seconds (9.8-13.1) H 01/23/17 22:35 INR 1.6 (0.9-1.2) H 01/23/17 22:35 APTT 30.3 Seconds (25.6-37.1) 01/23/17 22:35
[2017-01-25 19:30] LABS: CALCIUM 8.7 mg/dL (8.4-10.2)
[2017-01-26] MEDS: Insulin Lispro (humaLOG) 100 Units/ml Inj SC SCH ×3 (09:00→16:43)
[2017-01-26] MEDS: Metoprolol Succinate 25 mg XL Tab PO SCH (09:01)
[2017-01-26] MEDS: Ciprofloxacin 200mg/100ml D5W 100 ML IVPB SCH ×2 (09:03→21:31)
[2017-01-26 11:04] VITALS: BMI 28.1
[2017-01-26] MEDS: Dextrose 5%/0.45% NS 1,000 ML IV SCH (14:00)
[2017-01-26 16:02] VITALS: RESP 18
[2017-01-26] MEDS: Oxycodone/Acetaminophen 5/325 mg Tab PO PRN (19:43)
[2017-01-27 05:16] VITALS: O2SAT 98
[2017-01-27] MEDS: Dextrose 5%/0.45% NS 1,000 ML IV SCH (08:25)
[2017-01-27] MEDS: Insulin Lispro (humaLOG) 100 Units/ml Inj SC SCH ×2 (08:28→11:48)
[2017-01-27] MEDS: Metoprolol Succinate 25 mg XL Tab PO SCH (08:32)
[2017-01-27] MEDS: Ciprofloxacin 200mg/100ml D5W 100 ML IVPB SCH (11:47)
--- NOTE | 2017-01-27 12:24 | CP.PCM.PN ---
Subjective - Date & Time of Evaluation Date of Evaluation: 01/26/17 Time of Evaluation: 11:00 - Subjective Subjective: Patient feels better Still with elevated BUN Has better intake Has no chets pain or SOB or abd distention Objective - Vital Signs/Intake and Output Vital Signs (last 24 hours): Temp Pulse Resp BP Pulse Ox 98.1 F 85 18 109/68 98 01/27/17 08:19 01/27/17 08:32 01/27/17 08:19 01/27/17 08:32 01/27/17 08:19 - Medications Medications: Current Medications Clotrimazole (Lotrimin 1% Cream) 1 applic TOP BID [facility] Last Admin: 01/27/17 08:25 Dose: 1 applic Ciprofloxacin (Cipro 200mg/100ml D5w) 100 mls @ 100 mls/hr IVPB Q12 [facility] Last Admin: 01/27/17 11:47 Dose: 100 mls/hr Dextrose/Sodium Chloride (Dextrose 5%/0.45% Ns 1000 Ml) 1,000 mls @ 60 mls/hr IV .[id number] [facility] Stop: 01/27/17 13:08 Last Admin: 01/27/17 08:25 Dose: 60 mls/hr Insulin Human Lispro (Humalog) 7 units SC TIDWM [facility] Last Admin: 01/27/17 11:48 Dose: 7 units Metoprolol Succinate (Toprol Xl) 25 mg PO DAILY [facility] Last Admin: 01/27/17 08:32 Dose: 25 mg Oxycodone/Acetaminophen (Percocet 5/325 Mg Tab) 1 tab PO Q6 PRN PRN Reason: Pain, moderate (4-7) Stop: 01/27/17 23:01 Last Admin: 01/26/17 19:43 Dose: 1 tab - Labs Labs: 01/25/17 05:00 01/25/17 19:04 PT 18.1 Seconds (9.8-13.1) H 01/23/17 22:35 INR 1.6 (0.9-1.2) H 01/23/17 22:35 APTT 30.3 Seconds (25.6-37.1) 01/23/17 22:35 - Head Exam Head Exam: NORMAL INSPECTION - Eye Exam Eye Exam: Normal appearance - ENT Exam ENT Exam: Mucous Membranes Moist - Respiratory Exam Respiratory Exam: Clear to Ausculation Bilateral - Cardiovascular Exam Cardiovascular Exam: REGULAR RHYTHM - GI/Abdominal Exam GI & Abdominal Exam: Normal Bowel Sounds Assessment and Plan (1) Alcoholic cirrhosis of liver with ascites Status: Acute (2) Dehydration Status: Acute (3) Diabetes mellitus type 2 in nonobese Status: Chronic (4) HTN (hypertension) Status: Chronic - Assessment and Plan (Free Text) Plan: cont meds cont tx cont PT
--- NOTE | 2017-01-27 12:28 | CP.PCM.PN ---
Subjective - Date & Time of Evaluation Date of Evaluation: 01/27/17 Time of Evaluation: 12:24 - Subjective Subjective: Patient was about to be discharged but noted to have a short run of V tach Denies any chest pain or SOB. Objective - Vital Signs/Intake and Output Vital Signs (last 24 hours): Temp Pulse Resp BP Pulse Ox 98.1 F 85 18 109/68 98 01/27/17 08:19 01/27/17 08:32 01/27/17 08:19 01/27/17 08:32 01/27/17 08:19 - Medications Medications: Current Medications Clotrimazole (Lotrimin 1% Cream) 1 applic TOP BID [facility] Last Admin: 01/27/17 08:25 Dose: 1 applic Ciprofloxacin (Cipro 200mg/100ml D5w) 100 mls @ 100 mls/hr IVPB Q12 [facility] Last Admin: 01/27/17 11:47 Dose: 100 mls/hr Dextrose/Sodium Chloride (Dextrose 5%/0.45% Ns 1000 Ml) 1,000 mls @ 60 mls/hr IV .[id number] [facility] Stop: 01/27/17 13:08 Last Admin: 01/27/17 08:25 Dose: 60 mls/hr Insulin Human Lispro (Humalog) 7 units SC TIDWM [facility] Last Admin: 01/27/17 11:48 Dose: 7 units Metoprolol Succinate (Toprol Xl) 25 mg PO DAILY [facility] Last Admin: 01/27/17 08:32 Dose: 25 mg Oxycodone/Acetaminophen (Percocet 5/325 Mg Tab) 1 tab PO Q6 PRN PRN Reason: Pain, moderate (4-7) Stop: 01/27/17 23:01 Last Admin: 01/26/17 19:43 Dose: 1 tab - Labs Labs: 01/25/17 05:00 01/25/17 19:04 PT 18.1 Seconds (9.8-13.1) H 01/23/17 22:35 INR 1.6 (0.9-1.2) H 01/23/17 22:35 APTT 30.3 Seconds (25.6-37.1) 01/23/17 22:35 - Head Exam Head Exam: NORMAL INSPECTION - Eye Exam Eye Exam: Normal appearance - ENT Exam ENT Exam: Mucous Membranes Moist - Respiratory Exam Respiratory Exam: Clear to Ausculation Bilateral - Cardiovascular Exam Cardiovascular Exam: REGULAR RHYTHM - GI/Abdominal Exam GI & Abdominal Exam: Normal Bowel Sounds - Neurological Exam Neurological Exam: Awake, Oriented x3 Assessment and Plan (1) Alcoholic cirrhosis of liver with ascites Status: Acute (2) Dehydration Status: Acute (3) Diabetes mellitus type 2 in nonobese Status: Chronic (4) HTN (hypertension) Status: Chronic (5) Ventricular arrhythmia Status: Acute - Assessment and Plan (Free Text) Plan: cont meds Hold discharge Consult with Dr Meade.
[2017-01-27 12:33] VITALS: BP 111/59; PULSE 91; TEMP 98.6
[2017-01-27 13:12] LABS: BASO % 0.2 % (0.0-2.0); EOS % 0.4 % (0.0-4.0); HEMATOCRIT 37.1 % (35.0-51.0); LYMPH % 8.4 % (20.0-40.0); MEAN CELL VOLUME 94.6 fl (80.0-94.0); MEAN CORPUSCULAR HEMOGLOBIN 31.5 pg (27.0-31.0); MEAN CORPUSCULAR HGB CONC 33.3 g/dL (33.0-37.0); MEAN PLATELET VOLUME 9.3 fl (7.2-11.7); MONO # 1.7 K/uL (0.0-0.8); NEUT # 8.7 K/uL (1.8-7.0); PLATELET COUNT 165 K/uL (130-400); RED CELL DISTRIBUTION WIDTH 14.3 % (11.5-14.5); WHITE BLOOD COUNT 11.4 K/uL (4.8-10.8)
[2017-01-27 13:32] LABS: ALB/GLOB RATIO 0.6 (1.0-2.1); BILIRUBIN,TOTAL 3.7 mg/dl (0.2-1.3); CALCIUM 9.3 mg/dL (8.4-10.2); POTASSIUM 3.8 MMOL/L (3.6-5.0); TOTAL PROTEIN 8.8 G/DL (6.3-8.2)
[2017-01-27 13:59] LABS: EOSINOPHIL 1 % (0-7); NEUTROPHIL 86 % (42-75); TOTAL CELLS COUNTED 100
--- NOTE | 2017-01-28 12:23 | PQF RENAL ---
DR. MONTES, CAN YOU PLEASE CLARIFY IF IN AGREEMENT WITH DIAGNOSIS OF ACUTE KIDNEY INJURY and UTI. PER ER PHYS. DOCUMENTATION STATES - " pt. w/ evidence of UTI; DX : UTI and ACUTE KIDNEY INJURY". PROGRESS NOTE OF 01/24 STATES - NOTED ELEVATED BUN; PT. ON IV HYDRATION. CAN YOU PLEASE DOCUMENT IF DX OF BRYCE and UTI WERE RULED IN or OUT. This form is a permanent part of the medical record Clarification of your documentation is requested to better reflect the severity of illness and intensity of treatment of your patient. Indicators present [] Oliguria/anuria [] Edema/weight gain [] Hyponatremia [] Confusion/mental status changes [] Increased Blood Urea Nitrogen/Creatinine [] Increased Potassium/Decreased potassium [] Anemia (male <13.5, female <12.0) [] Proteinuria [] Metabolic Acidosis OR Alkalosis [] Hypotension/shock [] Decreased GFR [] Other: [] Location in the medical record that reflects the above clinical findings: PHYSICIAN'S RESPONSE Based on your medical judgment of the clinical indicators outlined above, are you treating this patient for a known or suspected: [] Acute Renal Failure [] Acute Kidney Injury [] Azotemia/prerenal azotemia [] Chronic kidney disease Stage I [] Stage II [] Stage III [] Stage IV [] [] Other condition/diagnosis:[] [] If Unable to Determine, please check the box, sign and date. Present On Admission (POA) Indicator: [] Present at the time of admission [] Not present at the time of admission [] Clinically Undetermined In responding to this query, please exercise your independent professional judgment. The fact that a question is asked does not imply that any particular answer is desired or expected. Thank you for your clarification on this documentation. If you have any questions please call:[ ] * Thank you, [ ]BRIJESH BRENNER boat hand Chronic Kidney Disease Stages *[employer]* Stage I GFR >90 Stage II GFR 60-89 Stage III GFR 30-59 Stage IV GFR 15-29 Stage V~~~~~~~~~~ GFR <15~~~~~~~~~~~~~ MTDD
== END 2017-01-27 15:14 | disposition home health service (06) | DRG 683 ==
LOC: H.ER 06:54 → H.ERHOLD 11:03 → H.TEL 13:10 → OBSVTOIN 01-24 15:28
PROVIDERS: ADMIT Family Medicine; ATTEND Family Medicine
PROC: 3E0234Z Introduction of Serum, Toxoid and Vaccine into Muscle, Percutaneous Approach (ICD-10-PCS; principal; 2017-01-23)
DX: N17.9 Acute kidney failure, unspecified (principal); N39.0 Urinary tract infection, site not specified; I47.2 Ventricular tachycardia; E11.65 Type 2 diabetes mellitus with hyperglycemia; E86.0 Dehydration; D64.9 Anemia, unspecified; K70.31 Alcoholic cirrhosis of liver with ascites; I10 Essential (primary) hypertension; I25.10 Atherosclerotic heart disease of native coronary artery without angina pectoris; E78.00 Pure hypercholesterolemia, unspecified; Z23 Encounter for immunization; Z95.5 Presence of coronary angioplasty implant and graft; Z87.01 Personal history of pneumonia (recurrent); Z79.82 Long term (current) use of aspirin; Z88.0 Allergy status to penicillin; F32.9 Major depressive disorder, single episode, unspecified; M19.90 Unspecified osteoarthritis, unspecified site

== ENCOUNTER 2017-02-09 09:31 | Emergency (ER) | payer MEDICARE, OTHER ==
[2017-02-09 09:32] VITALS: BMI 28.1
[2017-02-09 09:36] VITALS: O2SAT 100
--- NOTE | 2017-02-09 11:24 | ED PDOC ---
HPI: General Adult Time Seen by Provider: 02/09/17 09:40 Chief Complaint (Nursing): Weakness/Neurological Deficit Chief Complaint (Provider): Generalized weakness & constipation History Per: Patient History/Exam Limitations: no limitations Onset/Duration Of Symptoms: Days (x1) Current Symptoms Are (Timing): Still Present Additional Complaint(s): Eleazar Sinclair is an 81 year old male, with a past medical history of diabetes, CAD, HTN, liver cirrhosis, and chronic kidney disease, who was brought by to the emergency department for constipation, generalized weakness, decreased appetite, and chills onset for 1 day. Patient also vomited x2 days ago. He denies any fever. No further medical complaints. PMD: None provided. Past Medical History Reviewed: Historical Data, Nursing Documentation, Vital Signs Vital Signs: Last Vital Signs Temp 98.4 F 02/09/17 16:09 Pulse 72 02/09/17 16:09 Resp 18 02/09/17 16:09 BP 108/64 02/09/17 16:09 Pulse Ox 100 02/09/17 16:11 - Medical History PMH: Anemia, Arthritis, CAD, Cardia Arrhythmia, Depression, Diabetes, HTN, Hypercholesterolemia, Pneumonia, Chronic Kidney Disease Denies: Hepatitis, HIV, Seizures, Sexually Transmitted Disease - Surgical History Surgical History: Coronary Stent (stentsx2 2011) - Family History Family History: States: Unknown Family Hx - Social History Current smoker - smoking cessation education provided: No Alcohol: None Drugs: Denies - Immunization History Hx Influenza Vaccination: No Hx Pneumococcal Vaccination: No - Home Medications Home Medications: Ambulatory Orders Medication Instructions Recorded Insulin Glargine, Recombina 10 units SC HS 01/23/16 [Lantus] Hydroxyzine HCl 25 mg PO Q8H PRN 07/23/16 Insulin Lispro [humALOG] 6 unit SC TID 07/23/16 Isosorbide Dinitrate 30 mg PO DAILY 07/23/16 Metoprolol Succinate [Toprol XL] 50 mg PO DAILY 07/23/16 Docusate [Colace] 100 mg PO TID 10/04/16 predniSONE [predniSONE Tab] 5 mg PO DAILY 10/04/16 Albuterol Sulfate [Proair Hfa] 2 puff IH Q4H PRN 11/01/16 Aspirin [Adult Low Dose Aspirin EC] 81 mg PO MWF 11/01/16 Omeprazole 20 mg PO DAILY 11/01/16 Simethicone [Mylicon Chew Tab] 80 mg PO TID PRN 11/01/16 Vitamin B Complex [Super B-50 1 cap PO DAILY 11/01/16 Complex] Vitamin E [Vitamin E 400 Units Cap] 400 unit PO DAILY 11/01/16 Furosemide 40 mg PO BID #30 tablet 11/30/16 Acetaminophen with Codeine 1 tab PO Q6H 02/09/17 [Tylenol with Codeine #3 Tablet] DULoxetine [Cymbalta] 30 mg PO DAILY 02/09/17 Docusate [Colace] 100 mg PO BID PRN #10 cap 02/09/17 Nitrofurantoin Macrocrystals 100 mg PO BID #14 cap 02/09/17 [Macrobid] Spironolactone [Aldactone] 50 mg PO BID 02/09/17 metOLazone [Zaroxolyn] 2.5 mg PO DAILY 02/09/17 - Allergies Allergies/Adverse Reactions: Allergies Allergy/AdvReac Type Severity Reaction Status Date / Time lisinopril Allergy RASH Verified 02/09/17 09:53 Penicillins Allergy RASH Verified 02/09/17 09:53 Review of Systems ROS Statement: Except As Marked, All Systems Reviewed And Found Negative Constitutional: Positive for: Chills, Weakness (generalized). Negative for: Fever Gastrointestinal: Positive for: Vomiting, Constipation, Other (decreased appetite) Physical Exam - Reviewed Nursing Documentation Reviewed: Yes Vital Signs Reviewed: Yes - Physical Exam Appears: Positive for: Well, Non-toxic, No Acute Distress Head Exam: Positive for: ATRAUMATIC, NORMAL INSPECTION, NORMOCEPHALIC Skin: Positive for: Normal Color, Warm, Dry Eye Exam: Positive for: EOMI, Normal appearance, PERRL ENT: Positive for: Other (Dry mucous membrane) Neck: Positive for: Normal, Painless ROM, Supple Cardiovascular/Chest: Positive for: Regular Rate, Rhythm. Negative for: Murmur Respiratory: Positive for: Normal Breath Sounds. Negative for: Respiratory Distress Gastrointestinal/Abdominal: Positive for: Normal Exam, Bowel Sounds, Soft. Negative for: Tenderness, Guarding, Rebound Extremity: Positive for: Normal ROM. Negative for: Pedal Edema, Deformity, Swelling Neurologic/Psych: Positive for: Alert, Oriented. Negative for: Motor/Sensory Deficits - Laboratory Results Result Diagrams: 02/09/17 11:46 02/09/17 11:46 - ECG O2 Sat by Pulse Oximetry: 100 (RA) Pulse Ox Interpretation: Normal Medical Decision Making Medical Decision Making: Initial Impression: generalized weakness & constipation Initial Plan: --Comp Metabolic Panel --CBC w/ differential --Chest portable [RAD] --Urine C&S --Urinalysis --reevaluation 1125 Chest X-Ray FINDINGS: LUNGS: The lungs are clear. PLEURA: No significant pleural effusion identified, no pneumothorax apparent. CARDIOVASCULAR: The heart is normal in size. Atherosclerotic aortic arch calcifications are present. OSSEOUS STRUCTURES: No significant abnormalities. VISUALIZED UPPER ABDOMEN: Normal. OTHER FINDINGS: None. IMPRESSION: No active pulmonary disease. Time: 12:50 --Tylenol PO Time: 14:00 Patient is feeling better, requesting food. Labs reviewed, alk phos is elevated. Otherwise labs are grossly normal. Clinical Impression: Episode of generalized weakness Time: 16:03 Patient is medically stable. Will discharge home with rx's for Macrobid and Colace. Patient will follow up with PMD. Scribe Attestation: Documented by Jamie Agosto & Cathy Garvin, acting as scribes for Frances Chaidez MD Provider Scribe Attestation: All medical record entries made by the Scribe were at my direction and personally dictated by me. I have reviewed the chart and agree that the record accurately reflects my personal performance of the history, physical exam, medical decision making, and the department course for this patient. I have also personally directed, reviewed, and agree with the discharge instructions and disposition. Disposition - Clinical Impression Clinical Impression: Episode of generalized weakness - Patient ED Disposition Is Patient to be Admitted: No Counseled Patient/Family Regarding: Studies Performed, Diagnosis, Need For Followup, Rx Given - Disposition Referrals: [facility] [Outside] Disposition: Routine/Home Disposition Time: 16:03 Condition: IMPROVED Additional Instructions: follow up with your primary doctor in 1-2 days return to the ED with any worsening or concerning symptoms. Prescriptions: Docusate [Colace] 100 mg PO BID PRN #10 cap PRN Reason: Constipation Nitrofurantoin Macrocrystals [Macrobid] 100 mg PO BID #14 cap Instructions: Weakness (ED) Forms: [id number] (Spanish) Print Language: DIVEHI
[2017-02-09 11:50] LABS: BASO % 0.5 % (0.0-2.0); EOS # 0.1 K/uL (0.0-0.7); EOS % 0.6 % (0.0-4.0); HEMATOCRIT 37.6 % (35.0-51.0); LYMPH # 1.1 K/uL (1.0-4.3); LYMPH % 13.3 % (20.0-40.0); MEAN CELL VOLUME 94.3 fl (80.0-94.0); MEAN CORPUSCULAR HEMOGLOBIN 31.8 pg (27.0-31.0); MEAN CORPUSCULAR HGB CONC 33.7 g/dL (33.0-37.0); MEAN PLATELET VOLUME 9.3 fl (7.2-11.7); MONO # 0.9 K/uL (0.0-0.8); MONO % 10.9 % (0.0-10.0); NEUT # 6.2 K/uL (1.8-7.0); NEUT % 74.7 % (50.0-75.0); NRBC % 0.4 % (0.0-0.0); RED CELL DISTRIBUTION WIDTH 14.8 % (11.5-14.5); WHITE BLOOD COUNT 8.3 K/uL (4.8-10.8)
[2017-02-09 12:18] LABS: ALB/GLOB RATIO 0.6 (1.0-2.1); BILIRUBIN,TOTAL 2.3 mg/dl (0.2-1.3); CALCIUM 9.7 mg/dL (8.4-10.2); POTASSIUM 5.3 MMOL/L (3.6-5.0); TOTAL PROTEIN 10.8 G/DL (6.3-8.2)
[2017-02-09 14:24] LABS: URINE BACTERIA RARE (<OCC); URINE BILIRUBIN NEGATIVE (NEGATIVE); URINE BLOOD SMALL (NEGATIVE); URINE COLOR YELLOW (YELLOW); URINE GLUCOSE (UA) NEG (Normal); URINE KETONE NEGATIVE (NEGATIVE); URINE LEUKOCYTE ESTERASE LARGE Leu/uL (Negative); URINE PROTEIN NEGATIVE (NEGATIVE); WBC URINE 32 /hpf (0-5)
[2017-02-09 14:29] LABS: RBC URINE 6 /hpf (0-3)
[2017-02-09 16:10] VITALS: BP 108/64; PULSE 72; RESP 18; TEMP 98.4
== END 2017-02-09 16:36 | disposition home or self-care (01) ==
LOC: H.ER 09:31
DX: R53.1 Weakness (principal); E78.00 Pure hypercholesterolemia, unspecified; F32.9 Major depressive disorder, single episode, unspecified; I12.9 Hypertensive chronic kidney disease with stage 1 through stage 4 chronic kidney disease, or unspecified chronic kidney disease; K59.00 Constipation, unspecified; K74.60 Unspecified cirrhosis of liver; Z79.4 Long term (current) use of insulin; Z88.0 Allergy status to penicillin; Z95.5 Presence of coronary angioplasty implant and graft